=== PATIENT | male | born 1960 | race Caucasian/White ===

== ENCOUNTER → 2021-05-18 | Outpatient (CLI) | payer MEDICARE ==
--- NOTE | 2021-05-18 21:46 | CT ---
EXAMINATION TYPE: CT abdomen pelvis wo con DATE OF EXAM: 05/18/2021 HISTORY: diverticulitis, abdominal pain. CT DLP: 952.3 mGycm. Automated Exposure Control for Dose Reduction was Utilized. TECHNIQUE: CT scan of the abdomen and pelvis is performed with oral but without IV contrast. COMPARISON: CT abdomen and pelvis April 27, 2013 FINDINGS: Within the limitations of a non-contrast study, the following observations are made. LUNG BASES: Cardiomegaly with elevated left hemidiaphragm is redemonstrated. Overlying sternal wires are partially imaged similar to prior. There is persistent tiny pleural effusion and/or pleural thick ening with posterior calcifications and associated [id number] right greater than left bibasilar linear scarring and/or atelectasis.. LIVER/GB: No significant abnormality is appreciated. PANCREAS: Mild to moderate generalized fat replaced atrophy now present. SPLEEN: No significant abnormality is seen. ADRENALS: 2 small masses left adrenal gland and larger mass right adrenal gland are unchanged in size suggesting benign etiology. KIDNEYS: Some cortical thinning bilaterally. No hydronephrosis seen bilaterally. BOWEL: Oral contrast reaches the cecum. Suboptimal evaluation of distal bowel without enteric contra st. No suspicious small or large bowel dilatation. Diverticula in the sigmoid and left colon. No susp icious small or large bowel dilatation. GENITAL ORGANS: No gross abnormality seen. LYMPH NODES: No greater than 1cm abdominal or pelvic lymph nodes are appreciated. OSSEOUS STRUCTURES: Moderate to severe disc space narrowing with vacuum disc phenomenon at lumbosacra l junction. OTHER: Enlarging infrarenal AAA up to 6.4 cm axial image 51, length of the aneurysm is approximately 9.0 cm no extension into common iliac arteries is noted. There is however new aneurysm in the distal common iliac arteries measuring up to 4.0 cm right before bifurcation on the right. Scar tissue in the right and left anterior abdominal wall near level of umbilicus axial image 61 is n ow present. IMPRESSION: 1. Distal colonic diverticulosis without CT evidence for acute diverticulitis. 2. Enlarging infrarenal AAA up to 6.4 cm currently. Additional focal aneurysm distal right common li ac artery up to 4.0 cm. Advise surgical and/or endovascular referral.
[2021-05-19 06:41] LABS: Protein, Total 7.5 g/dL (6.2-8.2)
[2021-05-19 16:37] LABS: Albumin 4.4 g/dL (3.80-4.90); Gamma Globulin 1.01 g/dL (0.70-1.50)
== END | disposition home or self-care (01) ==
LOC: RADCTMAIN 16:59
PROVIDERS: ATTEND Internal Medicine
DX: K57.30 Diverticulosis of large intestine without perforation or abscess without bleeding (principal); I71.4 Abdominal aortic aneurysm, without rupture; I72.3 Aneurysm of iliac artery
CPT/HCPCS: 36415; 74176; 82565; 84165; 84520

== ENCOUNTER 2021-06-01 15:33 | Inpatient (IN) | payer MEDICARE ==
[2021-06-01] MEDS ORDERED: MAGNESIUM SULFATE-D5W PMX 1 GM in DEXTROSE/WATER 1 100ML.BAG IVPB ONE ×2 (16:03→22:39)
[2021-06-01] MEDS ORDERED: IPRATROPIUM-ALBUTEROL 3 ML NEB INHALATION STA (16:03)
[2021-06-01] MEDS ORDERED: methylPREDNISolone SOD SUCCI 125 MG/2 ML VIAL IV STA (16:03)
--- NOTE | 2021-06-01 16:14 | ED ---
Chest Pain HPI - General Chief Complaint: Chest Pain Stated Complaint: chest pain Source: patient Mode of arrival: ambulatory Limitations: no limitations - History of Present Illness Initial Comments: 60-year-old male with past medical history of coronary bypass 2, coronary stents, COPD, diabetes presents to the emergency room with reported shortness of breath. Patient's was chronically on oxygen up until one year ago. He states that he ran out of his canister and stopped using it one day. He was wearing 2 L of oxygen however he felt as if he did not need it any longer. States he's been doing well up until approximately one month ago. He has had progressive shortness of breath. Denies fevers, chills or cough. Does not use a nebulizer at home. He has been having some chest pain. States his last bypass was 12 years ago at [facility]. His by CT surgeon is now retired. He follows with a primary care doctor out of [place]. Reports that he used to be on a water pill however they took him off. He continues to smoke. No other alleviating, Percepting or modifying factors - Related Data Home Medications Medication Instructions Recorded Confirmed Allopurinol [Zyloprim] 300 mg PO DAILY 06/01/21 06/01/21 Aspirin EC [Ecotrin Low Dose] 81 mg PO DAILY 06/01/21 06/01/21 Clopidogrel [Plavix] 75 mg PO DAILY 06/01/21 06/01/21 Diltiazem HCl [Diltiazem HCl 24Hr 120 mg PO DAILY 06/01/21 06/01/21 ER (CD)] Escitalopram [Lexapro] 20 mg PO DAILY 06/01/21 06/01/21 HYDROcodone/APAP 7.5-325MG [[place] 1 tab PO QID PRN 06/01/21 06/01/21 7.5-325] Insulin Detemir (Levemir) [Levemir] 10 units SQ DAILY 06/01/21 06/01/21 Insulin Detemir (Levemir) [Levemir] 42 units SQ HS 06/01/21 06/01/21 Isosorbide Mononitrate ER [Imdur] 30 mg PO DAILY 06/01/21 06/01/21 Nitroglycerin Sl Tabs [Nitrostat] 0.4 mg SL Q5M PRN 06/01/21 06/01/21 Omeprazole 20 mg PO DAILY 06/01/21 06/01/21 Pioglitazone [Actos] 30 mg PO DAILY 06/01/21 06/01/21 Simvastatin [Zocor] 40 mg PO DAILY 06/01/21 06/01/21 Allergies Allergy/AdvReac Type Severity Reaction Status Date / Time No Known Allergies Allergy Verified 06/01/21 18:25 Review of Systems ROS Statement: Those systems with pertinent positive or pertinent negative responses have been documented in the HPI. ROS Other: All systems not noted in ROS Statement are negative. EKG Findings - EKG Comments: EKG Findings:: EKG demonstrates sinus bradycardia with a ventricular rate of 57. VA interval 180. QRS 118. QTC of 439. Incomplete left bundle-branch block. No acute ST segment elevations or depressions Past Medical History Past Medical History: COPD, Diabetes Mellitus, Hyperlipidemia, Myocardial Infarction ([place]) History of Any Multi-Drug Resistant Organisms: None Reported Past Surgical History: Appendectomy, Coronary Bypass/CABG, Heart Catheterization With Stent Past Psychological History: No Psychological Hx Reported Smoking Status: Current every day smoker Past Alcohol Use History: None Reported Past Drug Use History: None Reported - Past Family History Father Family Medical History: Hypertension General Exam Limitations: no limitations General appearance: alert, in distress Head exam: Present: atraumatic, normocephalic, normal inspection Eye exam: Present: normal appearance, PERRL, EOMI. Absent: scleral icterus, conjunctival injection, periorbital swelling ENT exam: Present: normal exam, mucous membranes moist Neck exam: Present: normal inspection. Absent: tenderness, meningismus, lymphadenopathy Respiratory exam: Present: respiratory distress, wheezes, accessory muscle use, decreased breath sounds. Absent: rales, rhonchi, stridor Cardiovascular Exam: Present: regular rate, normal rhythm, normal heart sounds. Absent: systolic murmur, diastolic murmur, rubs, gallop, clicks GI/Abdominal exam: Present: soft, normal bowel sounds. Absent: distended, tenderness, guarding, rebound, rigid Extremities exam: Present: normal inspection, full ROM, normal capillary refill. Absent: tenderness, pedal edema, joint swelling, calf tenderness Back exam: Present: normal inspection Neurological exam: Present: alert, oriented X3, CN II-XII intact Psychiatric exam: Present: normal affect, normal mood Skin exam: Present: warm, dry, intact, normal color. Absent: rash Course Vital Signs 06/01/21 06/01/21 06/01/21 15:36 17:53 18:07 Temperature 98.3 F Pulse Rate 68 51 L 50 L Respiratory 18 16 Rate Blood Pressure 187/105 162/92 O2 Sat by Pulse 72 L 96 Oximetry 06/01/21 06/01/21 06/01/21 18:13 19:00 21:02 Temperature Pulse Rate 52 L 47 L Respiratory 18 16 Rate Blood Pressure 154/91 O2 Sat by Pulse 95 Oximetry 06/01/21 06/01/21 06/02/21 22:03 22:15 01:54 Temperature Pulse Rate 51 L 48 L 60 Respiratory 16 Rate Blood Pressure 123/96 O2 Sat by Pulse 93 L 92 L Oximetry 06/02/21 06/02/21 06/02/21 03:54 04:05 05:30 Temperature Pulse Rate 56 L 61 62 Respiratory 18 Rate Blood Pressure 140/93 O2 Sat by Pulse 95 Oximetry 06/02/21 06/02/21 06/02/21 09:49 11:14 11:22 Temperature 97.7 F Pulse Rate 62 60 62 Respiratory 18 Rate Blood Pressure 129/69 O2 Sat by Pulse 95 Oximetry 06/02/21 06/02/21 06/02/21 12:53 15:31 15:39 Temperature Pulse Rate 80 60 64 Respiratory 18 Rate Blood Pressure O2 Sat by Pulse 97 Oximetry 06/02/21 15:58 Temperature Pulse Rate Respiratory 18 Rate Blood Pressure O2 Sat by Pulse Oximetry Chest Pain MDM - MDM Upon arrival patient is placed into trauma bay 3. Thorough history and physical exam was performed. Patient placed on 5 L of oxygen. IV is established. Laboratory studies are conducted. Creatinine 2.3. BNP 1040. Chest x-ray demonstrates chronic changes and cardiac megaly without acute cardiopulmonary process. I did review the patient's med list. He is not currently on a diuretic. Spoke with Dr. Lamont Roach who did recommend diuresis. I did order 60 mg once. Patient was given a DuoNeb breathing treatments, 1 g of magnesium and 125 mg of Solu-Medrol. Recommended admission due to the patient's profound hypoxia for which he did agree to. Spoke with Dr. Pedraza who agreed to admit the patient. We'll place cardiology and pulmonology on consult. Patient currently awaiting a bed on the floor in stable condition Disposition Clinical Impression: Chest pain, COPD exacerbation, Hypoxia Disposition: ADMITTED IP TO THIS HOSP Condition: Stable Is patient prescribed a controlled substance at d/c from ED?: No Decision to Admit Reason: Admit from EC Decision Date: 06/01/21 Decision Time: 18:19
[2021-06-01 16:18] LABS: Basophils # (A) 0.1 k/uL (0-0.2); Basophils % (A) 1 %; Eosinophils # (A) 0.1 k/uL (0-0.7); Eosinophils % (A) 2 %; HCT 42.5 % (39.0-53.0); HGB 14.1 gm/dL (13.0-17.5); Lymphocytes # (A) 1.2 k/uL (1.0-4.8); Lymphocytes % (A) 19 %; MCH 31.1 pg (25.0-35.0); MCHC 33.2 g/dL (31.0-37.0); MCV 93.6 fL (80.0-100.0); Monocytes # (A) 0.5 k/uL (0-1.0); Monocytes % (A) 7 %; Neutrophils # (A) 4.5 k/uL (1.3-7.7); Neutrophils % (A) 69 %; Platelet Count 160 k/uL (150-450); RBC 4.54 m/uL (4.30-5.90); RDW 13.8 % (11.5-15.5); WBC 6.5 k/uL (3.8-10.6)
[2021-06-01 16:25] LABS: Partial Thromboplastin Time 22.9 sec (22.0-30.0); Prothrombin Time 10.4 sec (9.0-12.0)
[2021-06-01 16:30] LABS: Albumin 4.3 g/dL (3.5-5.0); Calcium 8.9 mg/dL (8.4-10.2); Magnesium 1.5 mg/dL (1.6-2.3); Potassium 3.5 mmol/L (3.5-5.1); Total Bilirubin 0.7 mg/dL (0.2-1.3); Total Protein 7.3 g/dL (6.3-8.2)
--- NOTE | 2021-06-01 17:05 | XR ---
EXAMINATION TYPE: XR chest 2V DATE OF EXAM: 06/01/2021 COMPARISON: Chest CT October 26, 2013 HISTORY: Shortness of breath and chest pain. TECHNIQUE: Frontal and lateral views of the chest are obtained. FINDINGS: There is chronic parenchymal change and elevated left hemidiaphragm redemonstrated. Rafael Gonzalez ing sternal wires and cardiomegaly redemonstrated. Osseous structures are intact. IMPRESSION: Chronic changes and cardiomegaly without acute pulmonary process.
[2021-06-01] MEDS ORDERED: FUROSEMIDE 10 MG/ML 10 ML VIAL IV STA (18:15)
[2021-06-01] MEDS ORDERED: NALOXONE 0.4 MG/ML 1 ML VIAL IV PRN (18:19)
[2021-06-01] MEDS: IPRATROPIUM-ALBUTEROL 3 ML NEB INHALATION SCH (22:03)
[2021-06-01] MEDS ORDERED: HYDROcodone/APAP 7.5-325MG 1 EACH TAB PO PRN (22:18)
[2021-06-01] MEDS ORDERED: ATORVASTATIN 20 MG TAB PO SCH (22:30)
--- NOTE | 2021-06-01 22:32 | P.HPIM ---
History of Present Illness H&P Date: 06/01/21 The patient is a 60-year-old with a PMH of coronary artery disease status post CABG 2 and multiple stents, COPD with chronic hypoxic respiratory failure on continuous home oxygen, chronic kidney disease, type II DM, hypertension, and hyper lipidemia presented to the emergency room with complaints of shortness of breath. The patient reports that he has been on long-term oxygen therapy but ran out nearly a year ago and did not get mother canister and thereby has not been using his oxygen. He was using 2 L via nasal cannula but felt no different and thereby does not use it. He reports that over the past few weeks, he has gradually worsening shortness of breath. He notes that earlier today at around 11 AM, he felt tired and sat down at the edge of the bed where he fell asleep and subsequently fell off the bed, though he did not report any injuries. He then walked out to the kitchen where he lost consciousness and from the fridge, hitting the ground. The patient's [id number] was close by who witnessed the fall. She reports the patient was on the ground snoring. No shaking mo vements, urinary incontinence, foaming at the mouth as reported. The patient regained consciousness in 1-2 minutes with no post ictal confusion. The patient subsequently contacted his son who brought him to the emergency room. The patient denied experiencing chest discomfort, and palpitations headache, weakness, numbness, tingling. Also denied diaphoresis, nausea, vomiting, abdominal pain. Upon arrival in the ED, the patient's SpO2 is 72% on room air. EKG in the emergency room revealed sinus bradycardia with an incomplete left bundle branch block at 57 bpm with poor R-wave progression. Chest x-ray was unremarkable. Laboratory evaluation was remarkable for BUN of 34, creatinine 2.3, magnesium 1.5, troponin 0.039, and proBNP 1040. Review of systems: Pertinent positives and negatives as discussed in HPI, a complete review of systems was performed and all other systems are negative. Physical examination: General: non toxic, no distress, appears older than stated age, obese Derm: no unusual rashes/lesions no unusual ecchymoses, warm, dry Head: atraumatic, normocephalic, symmetric Eyes: EOMI, no lid lag, anicteric sclera, pupils equal round reactive to light ENT: Nose and ears atraumatic, no thrush, no pharyngeal erythema Neck: No thyromegaly, no cervical lymphadenopathy, trachea midline, supple Mouth: no lip lesion, mucus membranes moist Cardiovascular: S1S2 reg, no murmur, positive posterior tibial pulse bilateral, no edema, capillary refill less than 2 seconds Lungs: Diffuse bilateral wheezing, no rales or rhonchi appreciated, no accessory muscle use Abdominal: soft, nontender to palpation, no guarding, no appreciable organomegaly, normal bowel sounds Ext: no gross muscle atrophy, muscle strength 5 out of 5 in all 4 extremities grossly, no contractures, Neuro: CN II-XI grossly intact, light touch intact all 4 extremities, finger to nose within normal limits, Psych: Alert, oriented, appropriate affect Assessment/plan Elevated troponin, likely type II CT with demand ischemia due to severe hypoxia -Trend for now -Cardiology consulted -Cardiac monitoring Syncope, may be due to severe hypoxia -Cardiac monitoring -Echocardiogram -Continue supplemental oxygen -Fall, seizure precautions Acute COPD exacerbation with chronic hypoxic respiratory failure -Solu-Medrol -DuoNeb's -Pulmonary consult -Supplemental oxygen Chronic conditions: Type II DM, hypertension, hyperlipidemia, chronic kidney disease -Continue home meds DVT prophylaxis -Heparin subcu The patient is admitted with an anticipated greater than 2 midnight stay for evaluation of syncope CODE STATUS:Full Code Discussed with: Patient, son Anticipated discharge date: 2-[address]: Home Past Medical History Past Medical History: COPD, Diabetes Mellitus, Hyperlipidemia, Myocardial Infarction ([place]) History of Any Multi-Drug Resistant Organisms: None Reported Past Surgical History: Appendectomy, Coronary Bypass/CABG, Heart Catheterization With Stent Past Psychological History: No Psychological Hx Reported Smoking Status: Current every day smoker Past Alcohol Use History: None Reported Past Drug Use History: None Reported - Past Family History Father Family Medical History: Hypertension Medications and Allergies Home Medications Medication Instructions Recorded Confirmed Type Allopurinol [Zyloprim] 300 mg PO DAILY 06/01/21 06/01/21 History Aspirin EC [Ecotrin Low Dose] 81 mg PO DAILY 06/01/21 06/01/21 History Clopidogrel [Plavix] 75 mg PO DAILY 06/01/21 06/01/21 History Diltiazem HCl [Diltiazem HCl 24Hr 120 mg PO DAILY 06/01/21 06/01/21 History ER (CD)] Escitalopram [Lexapro] 20 mg PO DAILY 06/01/21 06/01/21 History HYDROcodone/APAP 7.5-325MG [[place] 1 tab PO QID PRN 06/01/21 06/01/21 History 7.5-325] Insulin Detemir (Levemir) [Levemir] 10 units SQ DAILY 06/01/21 06/01/21 History Insulin Detemir (Levemir) [Levemir] 42 units SQ HS 06/01/21 06/01/21 History Isosorbide Mononitrate ER [Imdur] 30 mg PO DAILY 06/01/21 06/01/21 History Nitroglycerin Sl Tabs [Nitrostat] 0.4 mg SL Q5M PRN 06/01/21 06/01/21 History Omeprazole 20 mg PO DAILY 06/01/21 06/01/21 History Pioglitazone [Actos] 30 mg PO DAILY 06/01/21 06/01/21 History Simvastatin [Zocor] 40 mg PO DAILY 06/01/21 06/01/21 History Allergies Allergy/AdvReac Type Severity Reaction Status Date / Time No Known Allergies Allergy Verified 06/01/21 18:25 Physical Exam Vitals: Vital Signs Temp Pulse Resp BP Pulse Ox 06/01/21 22:15 48 L 06/01/21 22:03 51 L 93 L 06/01/21 21:02 47 L 16 154/91 95 06/01/21 18:13 52 L 06/01/21 18:07 50 L 06/01/21 17:53 51 L 16 162/92 96 06/01/21 15:36 98.3 F 68 18 187/105 72 L Intake and Output 06/01/21 06/01/21 06/01/21 06:59 14:59 22:59 Other: Weight 107.955 kg Results CBC & Chem 7: 06/01/21 16:08 06/01/21 16:08 Labs: Abnormal Lab Results - Last 24 Hours (Table) 06/01/21 06/01/21 Range/Units 16:08 16:08 Sodium 134 L (137-145) mmol/L BUN 34 H (9-20) mg/dL Creatinine 2.30 H (0.66-1.25) mg/dL Glucose 144 H (74-99) mg/dL Magnesium 1.5 L (1.6-2.3) mg/dL Troponin I 0.039 H* (0.000-0.034) ng/mL
[2021-06-01] MEDS ORDERED: IPRATROPIUM-ALBUTEROL 3 ML NEB INHALATION PRN (22:38)
[2021-06-02 01:46] LABS: Glucose,Whole Blood 171 mg/dL (75-99)
[2021-06-02] MEDS: INSULIN DETEMIR (LEVEMIR) 100 UNIT/ML SYR SQ SCH ×3 (01:46→22:13)
[2021-06-02] MEDS: PANTOPRAZOLE 40 MG TABLET PO SCH ×2 (01:50→09:55)
[2021-06-02] MEDS: methylPREDNISolone SOD SUCCI 40 MG/ML 1 ML VIAL IV SCH ×4 (01:51→22:12)
[2021-06-02] MEDS: IPRATROPIUM-ALBUTEROL 3 ML NEB INHALATION SCH ×6 (03:53→21:09)
[2021-06-02 07:50] LABS: Basophils % (A) 0 %; Eosinophils % (A) 0 %; HCT 44.5 % (39.0-53.0); HGB 14.7 gm/dL (13.0-17.5); Lymphocytes # (A) 0.8 k/uL (1.0-4.8); Lymphocytes % (A) 12 %; MCH 31.2 pg (25.0-35.0); MCV 94.6 fL (80.0-100.0); Mean Platelet Volume 9.3; Monocytes # (A) 0.1 k/uL (0-1.0); Monocytes % (A) 1 %; Neutrophils # (A) 5.9 k/uL (1.3-7.7); Neutrophils % (A) 86 %; Platelet Count 168 k/uL (150-450); RDW 13.6 % (11.5-15.5); WBC 6.8 k/uL (3.8-10.6)
[2021-06-02 08:05] LABS: Calcium 9.2 mg/dL (8.4-10.2); Magnesium 1.9 mg/dL (1.6-2.3)
[2021-06-02] MEDS ORDERED: DILTIAZEM CD 120 MG CAP.ER.24H PO SCH (09:00)
[2021-06-02] MEDS ORDERED: PIOGLITAZONE 30 MG TAB PO SCH (09:00)
[2021-06-02] MEDS: CLOPIDOGREL 75 MG TAB PO SCH (09:55)
[2021-06-02] MEDS: ASPIRIN 81 MG PO SCH (09:55)
[2021-06-02] MEDS: ISOSORBIDE MONONITRATE ER 30 MG TAB.ER.24H PO SCH (09:55)
[2021-06-02] MEDS: allopurinoL 300 MG TAB PO SCH (10:57)
[2021-06-02] MEDS: ESCITALOPRAM 20 MG TAB PO SCH (10:57)
[2021-06-02] MEDS: carvediloL 6.25 MG TAB PO SCH ×2 (10:57→17:13)
--- NOTE | 2021-06-02 11:24 | P.GSCN ---
History of Present Illness Consult date: 06/02/21 Reason for Consult: Abdominal aortic aneurysm Requesting physician: Nancy Levy History of present illness: The [place] 60-year-old white male with a past medical history of multiple comorbidities including COPD, coronary artery disease status post CABG 2, stenting, diabetes mellitus, hyperlipidemia, and current every day smoker 1-2 packs per day. Patient has a history of smoking for the past 40-50 years. States he had 2 bypass surgeries done at [facility] in [place], first one done in his 30s. He also states he's had cardiac catheterization with stents. The patient presented to the emergency department yesterday evening with complaints of shortness of breath and dyspnea with exertion. He has a history of COPD which he was oxygen dependent however had not been using his oxygen at home as his machine did not work. On arrival to the emergency department the patient's oxygen level was 72% on room air. Patient had serial elevated troponins 3. Patient is admitted for COPD exacerbation with cardiology and pulmonology on consult. He follows with his primary care provider Dr. Tk Plaza out of [place]. He states he recently saw him in April for abdominal pain and he underwent a CT of the abdomen and pelvis that showed distal colonic diverticulosis without CT evidence of acute diverticulitis and enlarging infrarenal abdominal aortic aneurysm up to 6.4 cm currently. Additional focal aneurysm distal right common iliac artery up to 4.0 cm. Advise surgical and/or endovascular referral therefore vascular surgery was consulted. Patient currently denies any abdominal pain, nausea, vomiting, shortness of breath, chest pain, fevers or chills. Review of Systems A 14 point review of systems was completed all pertinent positives and negatives as stated in the HPI. Past Medical History Past Medical History: COPD, Diabetes Mellitus, Hyperlipidemia, Myocardial Infarction ([place]) History of Any Multi-Drug Resistant Organisms: None Reported Past Surgical History: Appendectomy, Coronary Bypass/CABG, Heart Catheterization With Stent Past Psychological History: No Psychological Hx Reported Smoking Status: Current every day smoker Past Alcohol Use History: None Reported Past Drug Use History: None Reported - Past Family History Father Family Medical History: Hypertension Medications and Allergies Home Medications Medication Instructions Recorded Confirmed Type Allopurinol [Zyloprim] 300 mg PO DAILY 06/01/21 06/01/21 History Aspirin EC [Ecotrin Low Dose] 81 mg PO DAILY 06/01/21 06/01/21 History Clopidogrel [Plavix] 75 mg PO DAILY 06/01/21 06/01/21 History Diltiazem HCl [Diltiazem HCl 24Hr 120 mg PO DAILY 06/01/21 06/01/21 History ER (CD)] Escitalopram [Lexapro] 20 mg PO DAILY 06/01/21 06/01/21 History HYDROcodone/APAP 7.5-325MG [[place] 1 tab PO QID PRN 06/01/21 06/01/21 History 7.5-325] Insulin Detemir (Levemir) [Levemir] 10 units SQ DAILY 06/01/21 06/01/21 History Insulin Detemir (Levemir) [Levemir] 42 units SQ HS 06/01/21 06/01/21 History Isosorbide Mononitrate ER [Imdur] 30 mg PO DAILY 06/01/21 06/01/21 History Nitroglycerin Sl Tabs [Nitrostat] 0.4 mg SL Q5M PRN 06/01/21 06/01/21 History Omeprazole 20 mg PO DAILY 06/01/21 06/01/21 History Pioglitazone [Actos] 30 mg PO DAILY 06/01/21 06/01/21 History Simvastatin [Zocor] 40 mg PO DAILY 06/01/21 06/01/21 History Allergies Allergy/AdvReac Type Severity Reaction Status Date / Time No Known Allergies Allergy Verified 06/01/21 18:25 Surgical - Exam Vital Signs Temp Pulse Resp BP Pulse Ox 98.3 F 68 18 187/105 72 L 06/01/21 15:36 06/01/21 15:36 06/01/21 15:36 06/01/21 15:36 06/01/21 15:36 General appearance: The patient is alert, oriented, appears in no acute distress. Obese. HET: Head is normocephalic and atraumatic. . Neck: Supple without lymphadenopathy. Trachea midline. Heart: S1 S2. Regular rate and rhythm. Lungs: Diminished with bilateral wheezing. Abdomen: Soft, nontender, nondistended with bowel sounds. Extremities: Normal skin color and turgor. No cyanosis, rash, ulceration, clubbing, or edema. Radial and pedal pulses are 2/4 bilaterally. Neurological: No focal deficits. Strength and sensation are grossly intact. Results - Labs 06/02/21 07:04 06/02/21 07:04 Abnormal Lab Results - Last 24 Hours (Table) 06/01/21 06/01/21 06/01/21 Range/Units 16:08 16:08 21:26 Lymphocytes # (1.0-4.8) k/uL Sodium 134 L (137-145) mmol/L Potassium (3.5-5.1) mmol/L Chloride (98-107) mmol/L BUN 34 H (9-20) mg/dL Creatinine 2.30 H (0.66-1.25) mg/dL Glucose 144 H (74-99) mg/dL POC Glucose (mg/dL) (75-99) mg/dL Magnesium 1.5 L (1.6-2.3) mg/dL Troponin I 0.039 H* 0.047 H* (0.000-0.034) ng/mL 06/02/21 06/02/21 06/02/21 Range/Units 00:19 01:44 07:04 Lymphocytes # 0.8 L (1.0-4.8) k/uL Sodium (137-145) mmol/L Potassium (3.5-5.1) mmol/L Chloride (98-107) mmol/L BUN (9-20) mg/dL Creatinine (0.66-1.25) mg/dL Glucose (74-99) mg/dL POC Glucose (mg/dL) 171 H (75-99) mg/dL Magnesium (1.6-2.3) mg/dL Troponin I 0.039 H* (0.000-0.034) ng/mL 06/02/21 Range/Units 07:04 Lymphocytes # (1.0-4.8) k/uL Sodium (137-145) mmol/L Potassium 3.0 L (3.5-5.1) mmol/L Chloride 97 L (98-107) mmol/L BUN 37 H (9-20) mg/dL Creatinine 2.30 H (0.66-1.25) mg/dL Glucose 184 H (74-99) mg/dL POC Glucose (mg/dL) (75-99) mg/dL Magnesium (1.6-2.3) mg/dL Troponin I (0.000-0.034) ng/mL Diabetes panel 06/01/21 06/02/21 Range/Units 16:08 07:04 Sodium 134 L 138 (137-145) mmol/L Potassium 3.5 3.0 L (3.5-5.1) mmol/L Chloride 99 97 L (98-107) mmol/L Carbon Dioxide 23 30 (22-30) mmol/L BUN 34 H 37 H (9-20) mg/dL Creatinine 2.30 H 2.30 H (0.66-1.25) mg/dL Glucose 144 H 184 H (74-99) mg/dL Calcium 8.9 9.2 (8.4-10.2) mg/dL AST 32 (17-59) U/L ALT 13 (4-49) U/L Alkaline Phosphatase 109 (38-126) U/L Total Protein 7.3 (6.3-8.2) g/dL Albumin 4.3 (3.5-5.0) g/dL Calcium panel 06/01/21 06/02/21 Range/Units 16:08 07:04 Calcium 8.9 9.2 (8.4-10.2) mg/dL Albumin 4.3 (3.5-5.0) g/dL Pituitary panel 06/01/21 06/02/21 Range/Units 16:08 07:04 Sodium 134 L 138 (137-145) mmol/L Potassium 3.5 3.0 L (3.5-5.1) mmol/L Chloride 99 97 L (98-107) mmol/L Carbon Dioxide 23 30 (22-30) mmol/L BUN 34 H 37 H (9-20) mg/dL Creatinine 2.30 H 2.30 H (0.66-1.25) mg/dL Glucose 144 H 184 H (74-99) mg/dL Calcium 8.9 9.2 (8.4-10.2) mg/dL Adrenal panel 06/01/21 06/02/21 Range/Units 16:08 07:04 Sodium 134 L 138 (137-145) mmol/L Potassium 3.5 3.0 L (3.5-5.1) mmol/L Chloride 99 97 L (98-107) mmol/L Carbon Dioxide 23 30 (22-30) mmol/L BUN 34 H 37 H (9-20) mg/dL Creatinine 2.30 H 2.30 H (0.66-1.25) mg/dL Glucose 144 H 184 H (74-99) mg/dL Calcium 8.9 9.2 (8.4-10.2) mg/dL Total Bilirubin 0.7 (0.2-1.3) mg/dL AST 32 (17-59) U/L ALT 13 (4-49) U/L Alkaline Phosphatase 109 (38-126) U/L Total Protein 7.3 (6.3-8.2) g/dL Albumin 4.3 (3.5-5.0) g/dL - Imaging Comments: CT of the abdomen and pelvis that showed distal colonic diverticulosis without CT evidence of acute diverticulitis and enlarging infrarenal abdominal aortic aneurysm up to 6.4 cm currently. Additional focal aneurysm distal right common iliac artery up to 4.0 cm. Advise surgical and/or endovascular referral Assessment and Plan Assessment: 1. Infrarenal Abdominal aortic aneurysm measuring 6.4 cm 2. Chronic COPD with exacerbation 3. History of coronary artery disease, status post CABG, cardiac stents 4. Elevated troponins 5. Diabetes mellitus, hypertension, hyperlipidemia, chronic kidney disease Plan: 1. Continue symptomatic and supportive care 2. Advised smoking cessation 3. Keep blood pressure controlled 4. Continue medical management per primary medicine team 5. Will need cardiac clearance prior to any vascular surgical procedure 6. Recommend CTA abdomen and pelvis once kidney function improves this may be done outpatient 7. Will need outpatient follow-up, further discussion of intervention and timing Thank you for this consultation, and allowing us take part in the plan of care of your patient during his hospital stay The impression and plan of care has been dictated as directed. I performed a history and examination of this patient, discussed the same with the dictator. I agree with the dictator's note ,documented as a scribe. Any additional findings or plans will be noted.
--- NOTE | 2021-06-02 12:48 | ECHOF ---
Referral Reason:Syncope MEASUREMENTS -------- HEIGHT: 182.9 cm WEIGHT: 108.0 kg BP: RVIDd: 3.5 cm (< 3.3) IVSd: 1.2 cm (0.6 - 1.1) LVIDd: 5.9 cm (3.9 - 5.3) LVPWd: 1.6 cm (0.6 - 1.1) IVSs: 1.5 cm LVIDs: 4.1 cm LVPWs: 1.8 cm LA Diam: 5.1 cm (2.7 - 3.8) LAESV Index (A-L): 32.57 ml/m Ao Diam: 3.6 cm (2.0 - 3.7) AV Cusp: 1.9 cm (1.5 - 2.6) MV EXCURSION: 18.134 mm (> 18.000) MV EF SLOPE: 61 mm/s (70 - 150) EPSS: 0.6 cm MV E Candido: 0.32 m/s MV DecT: 247 ms MV A Candido: 1.09 m/s MV E/A Ratio: 0.30 RAP: 3.00 mmHg RVSP: 14.29 mmHg FINDINGS -------- Sinus rhythm. This was a technically good study. LV size, wall thickness and systolic function are normal, with an EF greater than 55%. The left ramon tricular size is normal. The right ventricle is normal in size. LA is midly dilated 29-33ml/m2. The right atrial size is normal. There is mild aortic valve sclerosis. There is no evidence of aortic regurgitation. Mild mitral regurgitation is present. Mild tricuspid regurgitation present. Right ventricular systolic pressure is normal at < 35 mmHg. There is no pulmonic regurgitation present. There is no pericardial effusion. CONCLUSIONS -------- 1. LV size, wall thickness and systolic function are normal, with an EF greater than 55%. 2. The left ventricular size is normal. 3. The right ventricle is normal in size. 4. LA is midly dilated 29-33ml/m2. 5. The right atrial size is normal. 6. There is mild aortic valve sclerosis. 7. Mild mitral regurgitation is present. 8. Mild tricuspid regurgitation present. 9. There is no pericardial effusion. C4 PLANNER: Destiney Mckeon RDCS
--- NOTE | 2021-06-02 13:20 | P.CRDCN ---
History of Present Illness Consult date: 06/02/21 History of present illness: HISTORY OF PRESENT ILLNESS: This is a 60-year-old male with a past medical history significant for COPD, coronary artery disease with previous CABG performed at [facility], hypertension, hyperlipidemia, and nicotine dependence. 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 We have been asked to see the patient in consultation for chest pain. Patient examined at the bedside. Patient states he came to the [facility] secondary to SOB. He also reports intermittent chest pain over the past 2 weeks. He states the pain is usually in the middle of his chest. He denies any radiation of the pain. Patient is a current smoker and smokes 1 pack per day. EKG reveals sinus mechanism with ST depression in lateral leads. There is no previous EKG for comparison. Chest xray chronic changes and cardiomegaly without acute pulmonary process Laboratory data: WBC 6.8. Hemoglobin 14.7. Platelet count 168. Sodium 138. Potassium 3.0. B UN 37. Creatinine 2.30. Troponin 0.039. 0.047. 0.039. Current home cardiac medications include simvastatin 40 mg daily, Imdur 30 mg daily, diltiazem 120 mg daily, Plavix 75 mg daily, aspirin [address] abdomen and pelvis enlarging infrarenal AAA up to 6.4 cm currently. 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 Advise surgical and/or endovascular referral. REVIEW OF SYSTEMS: At the time of my exam: CONSTITUTIONAL: Denies fever or chills. HEENT: Denies blurred vision, vision changes, or eye pain. Denies hemoptysis CARDIOVASCULAR: Denies chest pain. Denies orthopnea. Denies PND. Denies palpitations RESPIRATORY: Reports shortness of breath. GASTROINTESTINAL: Denies abdominal pain. Denies nausea or vomiting. HEMATOLOGIC: Denies bleeding disorders. GENITOURINARY: Denies any blood in urine. SKIN: Denies pruitis. Denies rash. PHYSICAL EXAM: VITAL SIGNS: Reviewed. GENERAL: Well-developed in no acute distress. HEENT: Head is normocephalic. Pupils are equal, round. Sclerae anicteric. Mucous membranes of the mouth are moist. Neck supple. No JVD or thyromegaly LUNGS: Respirations even and unlabored. Lungs with scattered rhonchi and expiratory wheezing throughout. HEART: Regular rate and rhythm. S1 and S2 heard. ABDOMEN: Soft. Nondistended. Nontender. EXTREMITIES: Normal range of motion. No clubbing or cyanosis. Peripheral pulses intact. No lower extremity edema NEUROLOGIC: Awake and alert. Oriented x 3. ASSESSMENT: Acute exacerbation of COPD Abnormal troponin, not suggestive of acute coronary syndrome Infrarenal abdominal aortic aneurysm measuring 6.4 cm History of coronary artery disease with previous CABG Hypertension Hyperlipidemia Diabetes Nicotine dependence PLAN: Obtain 2D echo to assess cardiac structure and function Discontinue Diltiazem Begin Coreg 6.25 mg twice a day Continue additional cardiac medications Consult vascular surgery for evaluation of AAA Further recommendations pending patient course Nurse practitioner note has been reviewed by physician. Signing provider agrees with the documented findings, assessment, and plan of care. Past Medical History Past Medical History: COPD, Diabetes Mellitus, Hyperlipidemia, Myocardial Infarction ([place]) History of Any Multi-Drug Resistant Organisms: None Reported Past Surgical History: Appendectomy, Coronary Bypass/CABG, Heart Catheterization With Stent Past Psychological History: No Psychological Hx Reported Smoking Status: Current every day smoker Past Alcohol Use History: None Reported Past Drug Use History: None Reported - Past Family History Father Family Medical History: Hypertension Medications and Allergies Home Medications Medication Instructions Recorded Confirmed Type Allopurinol [Zyloprim] 300 mg PO DAILY 06/01/21 06/01/21 History Aspirin EC [Ecotrin Low Dose] 81 mg PO DAILY 06/01/21 06/01/21 History Clopidogrel [Plavix] 75 mg PO DAILY 06/01/21 06/01/21 History Diltiazem HCl [Diltiazem HCl 24Hr 120 mg PO DAILY 06/01/21 06/01/21 History ER (CD)] Escitalopram [Lexapro] 20 mg PO DAILY 06/01/21 06/01/21 History HYDROcodone/APAP 7.5-325MG [[place] 1 tab PO QID PRN 06/01/21 06/01/21 History 7.5-325] Insulin Detemir (Levemir) [Levemir] 10 units SQ DAILY 06/01/21 06/01/21 History Insulin Detemir (Levemir) [Levemir] 42 units SQ HS 06/01/21 06/01/21 History Isosorbide Mononitrate ER [Imdur] 30 mg PO DAILY 06/01/21 06/01/21 History Nitroglycerin Sl Tabs [Nitrostat] 0.4 mg SL Q5M PRN 06/01/21 06/01/21 History Omeprazole 20 mg PO DAILY 06/01/21 06/01/21 History Pioglitazone [Actos] 30 mg PO DAILY 06/01/21 06/01/21 History Simvastatin [Zocor] 40 mg PO DAILY 06/01/21 06/01/21 History Allergies Allergy/AdvReac Type Severity Reaction Status Date / Time No Known Allergies Allergy Verified 06/01/21 18:25 Physical Exam Vitals: Vital Signs Temp Pulse Resp BP Pulse Ox 06/02/21 11:22 62 06/02/21 11:14 60 06/02/21 09:49 97.7 F 62 18 129/69 95 06/02/21 05:30 62 18 140/93 95 06/02/21 04:05 61 06/02/21 03:54 56 L 06/02/21 01:54 60 16 123/96 92 L 06/01/21 22:15 48 L 06/01/21 22:03 51 L 93 L 06/01/21 21:02 47 L 16 154/91 95 06/01/21 19:00 18 06/01/21 18:13 52 L 06/01/21 18:07 50 L 06/01/21 17:53 51 L 16 162/92 96 06/01/21 15:36 98.3 F 68 18 187/105 72 L Intake and Output 06/01/21 06/02/21 06/02/21 22:59 06:59 14:59 Other: Weight 107.955 kg Results 06/02/21 07:04 06/02/21 07:04 Cardiac Enzymes 06/01/21 06/01/21 06/01/21 Range/Units 16:08 16:08 21:26 AST 32 (17-59) U/L Troponin I 0.039 H* 0.047 H* (0.000-0.034) ng/mL 06/02/21 Range/Units 00:19 AST (17-59) U/L Troponin I 0.039 H* (0.000-0.034) ng/mL Coagulation 06/01/21 Range/Units 16:08 PT 10.4 (9.0-12.0) sec APTT 22.9 (22.0-30.0) sec CBC 06/01/21 06/02/21 Range/Units 16:08 07:04 WBC 6.5 6.8 (3.8-10.6) k/uL RBC 4.54 4.70 (4.30-5.90) m/uL Hgb 14.1 14.7 (13.0-17.5) gm/dL Hct 42.5 44.5 (39.0-53.0) % Plt Count 160 168 (150-450) k/uL Comprehensive Metabolic Panel 06/01/21 06/02/21 Range/Units 16:08 07:04 Sodium 134 L 138 (137-145) mmol/L Potassium 3.5 3.0 L (3.5-5.1) mmol/L Chloride 99 97 L (98-107) mmol/L Carbon Dioxide 23 30 (22-30) mmol/L BUN 34 H 37 H (9-20) mg/dL Creatinine 2.30 H 2.30 H (0.66-1.25) mg/dL Glucose 144 H 184 H (74-99) mg/dL Calcium 8.9 9.2 (8.4-10.2) mg/dL AST 32 (17-59) U/L ALT 13 (4-49) U/L Alkaline Phosphatase 109 (38-126) U/L Total Protein 7.3 (6.3-8.2) g/dL Albumin 4.3 (3.5-5.0) g/dL Current Medications Generic Name Dose Route Start Last Admin Trade Name Freq PRN Reason Stop Dose Admin Hydrocodone Bitart/Acetaminophen 1 each 06/01/21 22:18 Hydrocodone/Apap 7.5-325mg 1 Each Tab PO QID PRN Pain Albuterol/Ipratropium 3 ml 06/01/21 20:00 06/02/21 11:13 Ipratropium-Albuterol 3 Ml Neb INHALATION 3 ml RT-Q4H ADRIANA Administration Albuterol/Ipratropium 3 ml 06/01/21 22:38 Ipratropium-Albuterol 3 Ml Neb INHALATION RT-QID PRN Shortness Of Breath Or Wheezing Allopurinol 300 mg 06/02/21 09:00 06/02/21 10:57 Allopurinol 300 Mg Tab PO 300 mg DAILY ADRIANA Administration Aspirin 81 mg 06/02/21 09:00 06/02/21 09:55 Aspirin 81 Mg PO 81 mg DAILY ADRIANA Administration Atorvastatin Calcium 40 mg 06/02/21 21:00 Atorvastatin 40 Mg Tab PO HS ADRIANA Carvedilol 6.25 mg 06/02/21 09:15 06/02/21 10:57 Carvedilol 6.25 Mg Tab PO 6.25 mg BID-W/MEALS ADRIANA Administration Clopidogrel Bisulfate 75 mg 06/02/21 09:00 06/02/21 09:55 Clopidogrel 75 Mg Tab PO 75 mg DAILY ADRIANA Administration Escitalopram Oxalate 20 mg 06/02/21 09:00 06/02/21 10:57 Escitalopram 20 Mg Tab PO 20 mg DAILY ADRIANA Administration Insulin Detemir 10 unit 06/02/21 09:00 06/02/21 10:51 Insulin Detemir (Levemir) 100 Unit/Ml Syr SQ 10 unit DAILY ADRIANA Administration Insulin Detemir 42 unit 06/01/21 22:30 06/02/21 01:46 Insulin Detemir (Levemir) 100 Unit/Ml Syr SQ Not Given HS [facility] Isosorbide Mononitrate 30 mg 06/02/21 09:00 06/02/21 09:55 Isosorbide Mononitrate Er 30 Mg Tab.Er.24h PO 30 mg DAILY ADRIANA Administration Methylprednisolone Sodium Succinate 40 mg 06/02/21 00:00 06/02/21 09:55 Methylprednisolone Sod Succi 40 Mg/Ml 1 Ml Vial IV 40 mg Q8HR ADRIANA Administration Naloxone HCl 0.2 mg 06/01/21 18:19 Naloxone 0.4 Mg/Ml 1 Ml Vial IV Q2M PRN Opioid Reversal Pantoprazole Sodium 40 mg 06/01/21 22:30 06/02/21 09:55 Pantoprazole 40 Mg Tablet PO 40 mg [id number] Administration Intake and Output 06/01/21 06/02/21 06/02/21 22:59 06:59 14:59 Other: Weight 107.955 kg 06/02/21 07:04 06/02/21 07:04
--- NOTE | 2021-06-02 15:40 | P.PN ---
Subjective Progress Note Date: 06/02/21 Patient was seen and evaluated by me in the emergency room. He denies any shortness of breath or chest pain at the time of my evaluation. No acute events overnight. Objective - Vital Signs Vital signs: Vital Signs Temp 97.7 F 06/02/21 09:49 Pulse 60 06/02/21 15:31 Resp 18 06/02/21 12:53 BP 129/69 06/02/21 09:49 Pulse Ox 97 06/02/21 12:53 Intake & Output 06/01/21 06/02/21 06/02/21 18:59 06:59 18:59 Weight 107.955 kg - Exam General: The patient is awake and alert, in no distress Eye: there is normal conjunctiva bilaterally. Neck: The neck is supple, there is no JVD. Cardiovascular: Normal S1-S2, no S3-S4, no murmurs. Respiratory: Lungs clear to auscultation bilaterally Gastrointestinal: Abdomen is soft, nontender Musculoskeletal: There is no pedal edema. Neurological:. Speech is normal. Skin: Skin is warm and dry - Labs CBC & Chem 7: 06/02/21 07:04 06/02/21 07:04 Labs: Abnormal Lab Results - Last 24 Hours (Table) 06/01/21 06/01/21 06/01/21 Range/Units 16:08 16:08 21:26 Lymphocytes # (1.0-4.8) k/uL Sodium 134 L (137-145) mmol/L Potassium (3.5-5.1) mmol/L Chloride (98-107) mmol/L BUN 34 H (9-20) mg/dL Creatinine 2.30 H (0.66-1.25) mg/dL Glucose 144 H (74-99) mg/dL POC Glucose (mg/dL) (75-99) mg/dL Hemoglobin A1c (4.0-6.0) % Magnesium 1.5 L (1.6-2.3) mg/dL Troponin I 0.039 H* 0.047 H* (0.000-0.034) ng/mL 06/02/21 06/02/21 06/02/21 Range/Units 00:19 01:44 07:04 Lymphocytes # 0.8 L (1.0-4.8) k/uL Sodium (137-145) mmol/L Potassium (3.5-5.1) mmol/L Chloride (98-107) mmol/L BUN (9-20) mg/dL Creatinine (0.66-1.25) mg/dL Glucose (74-99) mg/dL POC Glucose (mg/dL) 171 H (75-99) mg/dL Hemoglobin A1c (4.0-6.0) % Magnesium (1.6-2.3) mg/dL Troponin I 0.039 H* (0.000-0.034) ng/mL 06/02/21 06/02/21 Range/Units 07:04 07:04 Lymphocytes # (1.0-4.8) k/uL Sodium (137-145) mmol/L Potassium 3.0 L (3.5-5.1) mmol/L Chloride 97 L (98-107) mmol/L BUN 37 H (9-20) mg/dL Creatinine 2.30 H (0.66-1.25) mg/dL Glucose 184 H (74-99) mg/dL POC Glucose (mg/dL) (75-99) mg/dL Hemoglobin A1c 6.5 H (4.0-6.0) % Magnesium (1.6-2.3) mg/dL Troponin I (0.000-0.034) ng/mL Assessment and Plan Assessment: This is a 60-year-old male with very complex past medical history noted below Presented to the emergency room with acute on chronic dyspnea and was found to be hypoxic. Patient is to have oxygen at home but ran out of it approximately a year ago did not see any doctors. He was evaluated in the ER and admitted to the hospital for further management of his medical problems noted below. 1. Acute on chronic hypoxic respiratory failure probably secondary to underly ing COPD. O2 sats greater than 90% on 2 L of oxygen via nasal cannula. 2. Troponin elevation, most likely non-thrombotic troponin leak secondary to demand/supply mismatch and hypoxia. Patient was seen and evaluated by cardiology. Echocardiogram showed preserved ejection fraction with no significa nt valvular or wall motion abnormalities. 3. Acute COPD exacerbation, started on bronchodilators and IV Solu-Medrol. Pulmonary consulted for further evaluation. 4. Infrarenal AAA measuring 6.4 cm noted on echo. Seen and evaluated by vascular surgery. Follow-up outpatient. Tobacco cessation encouraged. 5. Chronic medical problems, coronary artery disease with previous CABG, station IIIB chronic kidney disease with baseline creatinine around 2.2, type 2 diabetes, essential hypertension, hyperlipidemia
--- NOTE | 2021-06-02 16:13 | P.CNPUL ---
History of Present Illness Consult date: 06/02/21 Requesting physician: Violet Perry Reason for consult: dyspnea, hypoxemia, pneumonia, abnormal CXR/CT Chief complaint: Shortness of breath History of present illness: This is a 60-year-old white male patient with previous history of coronary artery disease, and coronary artery bypass grafting over 30 years ago, with subsequent re-do CABG, COPD, diabetes mellitus, chronic and ongoing history of smoking, patient is supposed to wear oxygen at home however he states his oxygen machine has been broken and he has not been wearing it. Patient is a 1-2 pack per day smoker, for the past 40-50 years. His bypass surgeries were done at the [facility] in [place], the first one was done in his 30s. Patient follows with Dr. Plaza for his primary care services, he used to see Dr. Keri meeks in the remote past for his history of COPD, the severity is unknown to us at this time. Patient came into the emergency department on 06/01/2021 for evaluation of shortness of breath which has been progressive. He has been having some chest pain as well. He reported cough, some yellow phlegm pr oduction. No hemoptysis. Chest x-ray showed chronic changes and cardiomegaly without acute pulmonary process. He was tested for COVID-19 and he was found to be negative, his lab work showed CBC within normal limits, normal white count of 6.5, hemoglobin of 14.1, INR 1.0, sodium of 134, the rest of electrolytes were within normal limits, BUN of 34 creatinine of 2.3, lactic acid of 0.7, magnesium of 1.5, LFTs were within normal limits, troponins were 0.039, 0.047, 0.039, proBNP was 1040. EKG showed sinus bradycardia with incomplete left bundle branch block pattern, and T wave inversion in the lateral leads. Echocardiogram was completed showing EF of greater than 55%, mild aortic valve sclerosis, mild MR, mild TR. Patient is congested, wheezy, and his COPD is active. He was started on nebulized bronchodilators, he did receive a dose of IV Lasix in the ER, and this consultation was initiated. Patient had a recent CT of the abdomen and pelvis in April for investigation of abdominal pain which showed distal colonic diverticulosis without diverticulitis, and enlarging infrarenal abdominal aortic aneurysm measuring up to 6.4 cm currently. Vascular surgery has been consulted. Review of Systems All systems: negative Constitutional: Denies chills, Denies fever Eyes: denies blurred vision, denies pain Ears, nose, mouth and throat: Denies headache, Denies sore throat Cardiovascular: Denies chest pain, Denies shortness of breath Respiratory: Reports cough with sputum, Reports dyspnea, Reports home oxygen, Reports respiratory infections, Reports wheezing, Denies cough Gastrointestinal: Denies abdominal pain, Denies diarrhea, Denies nausea, Denies vomiting Musculoskeletal: Denies myalgias Integumentary: Denies pruritus, Denies rash Neurological: Denies numbness, Denies weakness Psychiatric: Denies anxiety, Denies depression Endocrine: Denies fatigue, Denies weight change Past Medical History Past Medical History: COPD, Diabetes Mellitus, Hyperlipidemia, Myocardial Infarction ([place]) History of Any Multi-Drug Resistant Organisms: None Reported Past Surgical History: Appendectomy, Coronary Bypass/CABG, Heart Catheterization With Stent Past Psychological History: No Psychological Hx Reported Smoking Status: Current every day smoker Past Alcohol Use History: None Reported Past Drug Use History: None Reported - Past Family History Father Family Medical History: Hypertension Medications and Allergies Home Medications Medication Instructions Recorded Confirmed Type Allopurinol [Zyloprim] 300 mg PO DAILY 06/01/21 06/01/21 History Aspirin EC [Ecotrin Low Dose] 81 mg PO DAILY 06/01/21 06/01/21 History Clopidogrel [Plavix] 75 mg PO DAILY 06/01/21 06/01/21 History Diltiazem HCl [Diltiazem HCl 24Hr 120 mg PO DAILY 06/01/21 06/01/21 History ER (CD)] Escitalopram [Lexapro] 20 mg PO DAILY 06/01/21 06/01/21 History HYDROcodone/APAP 7.5-325MG [[place] 1 tab PO QID PRN 06/01/21 06/01/21 History 7.5-325] Insulin Detemir (Levemir) [Levemir] 10 units SQ DAILY 06/01/21 06/01/21 History Insulin Detemir (Levemir) [Levemir] 42 units SQ HS 06/01/21 06/01/21 History Isosorbide Mononitrate ER [Imdur] 30 mg PO DAILY 06/01/21 06/01/21 History Nitroglycerin Sl Tabs [Nitrostat] 0.4 mg SL Q5M PRN 06/01/21 06/01/21 History Omeprazole 20 mg PO DAILY 06/01/21 06/01/21 History Pioglitazone [Actos] 30 mg PO DAILY 06/01/21 06/01/21 History Simvastatin [Zocor] 40 mg PO DAILY 06/01/21 06/01/21 History Allergies Allergy/AdvReac Type Severity Reaction Status Date / Time No Known Allergies Allergy Verified 06/01/21 18:25 Physical Exam Vitals: Vital Signs Temp Pulse Resp BP Pulse Ox 06/02/21 15:39 64 06/02/21 15:31 60 06/02/21 12:53 80 18 97 06/02/21 11:22 62 06/02/21 11:14 60 06/02/21 09:49 97.7 F 62 18 129/69 95 06/02/21 05:30 62 18 140/93 95 06/02/21 04:05 61 06/02/21 03:54 56 L 06/02/21 01:54 60 16 123/96 92 L 06/01/21 22:15 48 L 06/01/21 22:03 51 L 93 L 06/01/21 21:02 47 L 16 154/91 95 06/01/21 19:00 18 06/01/21 18:13 52 L 06/01/21 18:07 50 L 06/01/21 17:53 51 L 16 162/92 96 GENERAL EXAM: Alert, pleasant, 60-year-old white male, on 2 L of oxygen with pulse ox 97%, congested, coughing, wheezing comfortable in no apparent distress. HEAD: Normocephalic/atraumatic. EYES: Normal reaction of pupils, equal size. Conjunctiva pink, sclera white. NOSE: Clear with pink turbinates. THROAT: No erythema or exudates. NECK: No masses, no JVD, no thyroid enlargement, no adenopathy. CHEST: No chest wall deformity. Symmetrical expansion. LUNGS: Equal air entry with diffuse wheezing and rhonchi CVS: Regular rate and rhythm, normal S1 and S2, no gallops, no murmurs, no rubs ABDOMEN: Soft, nontender. No hepatosplenomegaly, normal bowel sounds, no guarding or rigidity. EXTREMITIES: No clubbing, no edema, no cyanosis, 2+ pulses and upper and lower extremities. MUSCULOSKELETAL: Muscle strength and tone normal. SPINE: No scoliosis or deformity SKIN: No rashes CENTRAL NERVOUS SYSTEM: Alert and oriented -3. No focal deficits, tone is normal in all 4 extremities. PSYCHIATRIC: Alert and oriented -3. Appropriate affect. Intact judgment and insight. Results - Laboratory Findings CBC and BMP: 06/02/21 07:04 06/02/21 07:04 PT/INR, D-dimer PT 10.4 sec (9.0-12.0) 06/01/21 16:08 INR 1.0 (<1.2) 06/01/21 16:08 Abnormal lab findings: Abnormal Labs 06/01/21 06/01/21 06/01/21 16:08 16:08 21:26 Lymphocytes # Sodium 134 L Potassium Chloride BUN 34 H Creatinine 2.30 H Glucose 144 H POC Glucose (mg/dL) Hemoglobin A1c Magnesium 1.5 L Troponin I 0.039 H* 0.047 H* 06/02/21 06/02/21 06/02/21 00:19 01:44 07:04 Lymphocytes # 0.8 L Sodium Potassium Chloride BUN Creatinine Glucose POC Glucose (mg/dL) 171 H Hemoglobin A1c Magnesium Troponin I 0.039 H* 06/02/21 06/02/21 07:04 07:04 Lymphocytes # Sodium Potassium 3.0 L Chloride 97 L BUN 37 H Creatinine 2.30 H Glucose 184 H POC Glucose (mg/dL) Hemoglobin A1c 6.5 H Magnesium Troponin I - Diagnostic Findings Chest x-ray: report reviewed, image reviewed Additional studies: EKG reviewed, echocardiogram results reviewed Assessment and Plan Plan: Assessment: #1. Acute on chronic hypoxic respiratory failure related to acute exacerbation of COPD, chest x-ray showed chronic changes and cardiomegaly without acute pulmonary process, COVID-19 PCR was negative #2. Troponin elevation, cardiology is on the case, please refer to the consultation by cardiology #3. History of coronary artery disease, status post coronary artery bypass grafting 30 years ago, with subsequent redo CABG, and coronary artery stenting #4. COPD, supposed to wear home oxygen at 2 L, however has not been wearing it because of broken oxygen equipment #5. Chronic and ongoing history of smoking, carries 40-50 years of smoking, 1-2 packs per day #6. Infrarenal abdominal aortic aneurysm measuring 6.4 cm, vascular surgery following #7. Diabetes mellitus type 2 #8. Hypertension #9. Hyperlipidemia #10. Chronic kidney disease Plan: Continue IV steroids and bronchodilators Chest x-ray has been reviewed, labs reviewed We will add doxycycline 100 mg twice daily Smoking cessation has been recommended COVID-19 PCR was negative will continue to follow his clinical course and make further recommendations I performed a history & physical examination of the patient and discussed their management with my nurse practitioner, Faith Warren. I reviewed the nurse practitioner's note and agree with the documented findings and plan of care. Lung sounds are positive for diffuse wheezes throughout the lung fisher. The findings and the impression was discussed with the patient. I attest to the documentation by the nurse practitioner. Time with Patient: Greater than 30
[2021-06-02] MEDS ORDERED: Potassium Replacement Protocol 1 EACH MISC MISCELLANE PRN (16:42)
[2021-06-02] MEDS: POTASSIUM CHLORIDE ER 20 MEQ TAB.ER PO SCH ×2 (17:12→18:01)
[2021-06-02 19:58] LABS: Glucose,Whole Blood 285 mg/dL (75-99)
[2021-06-02] MEDS ORDERED: ATORVASTATIN 40 MG TAB PO SCH (21:00)
[2021-06-02] MEDS: SYMBICORT 160-4.5 MCG INHALER INHALATION SCH (21:09)
[2021-06-02] MEDS: DOXYCYCLINE 100 MG CAP PO SCH (22:13)
[2021-06-03] MEDS: IPRATROPIUM-ALBUTEROL 3 ML NEB INHALATION SCH ×7 (00:16→23:42)
[2021-06-03 06:02] LABS: Glucose,Whole Blood 181 mg/dL (75-99)
[2021-06-03] MEDS: PANTOPRAZOLE 40 MG TABLET PO SCH (06:34)
[2021-06-03] MEDS: carvediloL 6.25 MG TAB PO SCH (06:34)
[2021-06-03] MEDS: SYMBICORT 160-4.5 MCG INHALER INHALATION SCH ×2 (08:04→19:33)
[2021-06-03] MEDS: INSULIN DETEMIR (LEVEMIR) 100 UNIT/ML SYR SQ SCH ×2 (08:23→20:08)
[2021-06-03] MEDS: ASPIRIN 81 MG PO SCH (08:23)
[2021-06-03] MEDS: ISOSORBIDE MONONITRATE ER 30 MG TAB.ER.24H PO SCH (08:23)
[2021-06-03] MEDS: methylPREDNISolone SOD SUCCI 40 MG/ML 1 ML VIAL IV SCH ×3 (08:23→23:02)
[2021-06-03] MEDS: ESCITALOPRAM 20 MG TAB PO SCH (08:23)
[2021-06-03] MEDS: allopurinoL 300 MG TAB PO SCH (08:23)
[2021-06-03] MEDS: DOXYCYCLINE 100 MG CAP PO SCH ×2 (08:23→20:08)
[2021-06-03] MEDS: CLOPIDOGREL 75 MG TAB PO SCH (08:23)
[2021-06-03 09:16] LABS: Calcium 9.9 mg/dL (8.4-10.2); Potassium 3.6 mmol/L (3.5-5.1)
--- NOTE | 2021-06-03 10:45 | P.PN ---
Subjective Progress Note Date: 06/03/21 Patient was seen and examined lying in bed. No acute changes through the night. He has been afebrile. He denies any chest pain or abdominal pain. He remains on 4 L nasal cannula, oxygen saturation 96%. Cardiology recommending AAA repair while inpatient if possible. They will continue to maximize medical management for blood pressures at this time. Objective - Vital Signs Vital signs: Vital Signs Temp 98.2 F 06/03/21 08:00 Pulse 60 06/03/21 08:16 Resp 18 06/03/21 08:00 BP 178/95 06/03/21 08:00 Pulse Ox 96 06/03/21 08:00 Intake & Output 06/02/21 06/03/21 06/03/21 18:59 06:59 18:59 Weight 107.955 kg 104.7 kg Other: Voiding Method Toilet # Voids 1 - Exam General appearance: The patient is alert, oriented, in no acute distress. HET: Head is normocephalic and atraumatic. Pupils are equal and reactive. Oropharynx is clear without lesions. Neck: Supple without lymphadenopathy. Trachea midline. Heart: S1 S2. Regular rate and rhythm. Lungs: Wheezing, rhonchi. Abdomen: Soft, nontender, nondistended. Extremities: Normal skin color and turgor. No cyanosis, rash, ulceration, clubbing, or edema. Palpable radial pulses bilaterally. Neurological: No focal deficits. Strength and sensation are grossly intact. - Labs CBC & Chem 7: 06/02/21 07:04 06/03/21 08:15 Labs: Abnormal Lab Results - Last 24 Hours (Table) 06/02/21 06/02/21 06/03/21 Range/Units 07:04 19:57 05:58 POC Glucose (mg/dL) 285 H 181 H (75-99) mg/dL Hemoglobin A1c 6.5 H (4.0-6.0) % Assessment and Plan Assessment: 1. Infrarenal Abdominal aortic aneurysm measuring 6.4 cm 2. Chronic COPD with exacerbation 3. History of coronary artery disease, status post CABG, cardiac stents 4. Elevated troponins 5. Diabetes mellitus, hypertension, hyperlipidemia, chronic kidney disease Plan: 1. Continue symptomatic and supportive care 2. Advised smoking cessation 3. Keep blood pressure controlled 4. Continue medical management per primary medicine team 5. Will need cardiac clearance prior to any vascular surgical procedure 6. Recommend CTA abdomen and pelvis once kidney function improves 7. Further recommendations forthcoming regarding abdominal aortic aneurysm repair in timing Thank you for this consultation, and allowing us take part in the plan of care of your patient during his hospital stay The impression and plan of care has been dictated as directed. Dr. Tam I performed a history and examination of this patient, discussed the same with the dictator. I agree with the dictator's note ,documented as a scribe. Any additional findings or plans will be noted.
[2021-06-03 11:35] LABS: Glucose,Whole Blood 188 mg/dL (75-99)
--- NOTE | 2021-06-03 12:36 | P.PN ---
Subjective Progress Note Date: 06/03/21 HISTORY OF PRESENT ILLNESS: This is a 60-year-old male with a past medical history significant for COPD, coronary artery disease with previous CABG performed at [facility], hyp ertension, hyperlipidemia, and nicotine dependence. 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 We have been asked to see the patient in consultation for chest pain. Patient examined at the bedside. Patient states he came to the hospital secondary to SOB. He also reports intermittent chest pain over the past 2 weeks. He states the pain is usually in the middle of his chest. He denies any radiat ion of the pain. Patient is a current smoker and smokes 1 pack per day. EKG reveals sinus mechanism with ST depression in lateral leads. There is no previous EKG for comparison. Chest xray chronic changes and cardiomegaly without acute pulmonary process Laboratory data: WBC 6.8. Hemoglobin 14.7. Platelet count 168. Sodium 138. Potassium 3.0. B UN 37. Creatinine 2.30. Troponin 0.039. 0.047. 0.039. Current home cardiac medications include simvastatin 40 mg daily, Imdur 30 mg daily, diltiazem 120 mg daily, Plavix 75 mg daily, aspirin [address] abdomen and pelvis enlarging infrarenal AAA up to 6.4 cm currently. Additional focal aneurysm distal right common iliac artery up to 4 cm. Advise surgical and/or endovascular referral. 06/03/2021 Patient examined this morning at the bedside. Patient denies chest pain or pressure. He reports his shortness of breath is improving. Echocardiogram completed revealed ejection fraction greater than 55%. PHYSICAL EXAM: VITAL SIGNS: Reviewed. GENERAL: Well-developed in no acute distress. NECK: Supple. No JVD or thyromegaly LUNGS: Respirations even and unlabored. Lungs with scattered rhonchi and expiratory wheezing throughout. HEART: Regular rate and rhythm. S1 and S2 heard. EXTREMITIES: Normal range of motion. No clubbing or cyanosis. Peripheral pulses intact. No lower extremity edema ASSESSMENT: Acute exacerbation of COPD Abnormal troponin, not suggestive of acute coronary syndrome Infrarenal abdominal aortic aneurysm measuring 6.4 cm History of coronary artery disease with previous CABG Hypertension Hyperlipidemia Diabetes Nicotine dependence PLAN: Continue current cardiac medications Dr. Cavazos recommends inpatient repair of AAA. Dr. Cavazos spoke with Nikki vascular [employer] and relayed this information to her. Further recommendations pending patient course Nurse practitioner note has been reviewed by physician. Signing provider agrees with the documented findings, assessment, and plan of care. Objective - Vital Signs Vital signs: Vital Signs Temp 97.4 F L 06/03/21 11:57 Pulse 64 06/03/21 11:57 Resp 16 06/03/21 11:57 BP 163/80 06/03/21 11:57 Pulse Ox 98 06/03/21 11:57 Intake & Output 06/02/21 06/03/21 06/03/21 18:59 06:59 18:59 Weight 107.955 kg 104.7 kg Other: Voiding Method Toilet # Voids 1 - Labs CBC & Chem 7: 06/02/21 07:04 06/03/21 08:15 Labs: Abnormal Lab Results - Last 24 Hours (Table) 06/02/21 06/02/21 06/03/21 Range/Units 07:04 19:57 05:58 Chloride (98-107) mmol/L Carbon Dioxide (22-30) mmol/L BUN (9-20) mg/dL Creatinine (0.66-1.25) mg/dL Glucose (74-99) mg/dL POC Glucose (mg/dL) 285 H 181 H (75-99) mg/dL Hemoglobin A1c 6.5 H (4.0-6.0) % 06/03/21 06/03/21 Range/Units 08:15 11:34 Chloride 96 L (98-107) mmol/L Carbon Dioxide 32 H (22-30) mmol/L BUN 49 H (9-20) mg/dL Creatinine 2.45 H (0.66-1.25) mg/dL Glucose 178 H (74-99) mg/dL POC Glucose (mg/dL) 188 H (75-99) mg/dL Hemoglobin A1c (4.0-6.0) %
--- NOTE | 2021-06-03 13:19 | P.PN ---
Subjective She is doing fairly well today. He denies any chest pain this morning. He still having some wheezing. Objective - Vital Signs Vital signs: Vital Signs Temp 97.4 F L 06/03/21 11:57 Pulse 64 06/03/21 11:57 Resp 16 06/03/21 11:57 BP 163/80 06/03/21 11:57 Pulse Ox 98 06/03/21 11:57 Intake & Output 06/02/21 06/03/21 06/03/21 18:59 06:59 18:59 Intake Total 0 Balance 0 Weight 107.955 kg 104.7 kg Intake: Oral 0 Other: Voiding Method Toilet # Voids 1 3 - Exam General: The patient is awake and alert, in no distress Eye: there is normal conjunctiva bilaterally. Neck: The neck is supple, there is no JVD. Cardiovascular: Normal S1-S2, no S3-S4, no murmurs. Respiratory: Lungs with end expiratory wheezing Gastrointestinal: Abdomen is soft, nontender Musculoskeletal: There is no pedal edema. Neurological:. Speech is normal. Skin: Skin is warm and dry - Labs CBC & Chem 7: 06/02/21 07:04 06/03/21 08:15 Labs: Abnormal Lab Results - Last 24 Hours (Table) 06/02/21 06/03/21 06/03/21 Range/Units 19:57 05:58 08:15 Chloride 96 L (98-107) mmol/L Carbon Dioxide 32 H (22-30) mmol/L BUN 49 H (9-20) mg/dL Creatinine 2.45 H (0.66-1.25) mg/dL Glucose 178 H (74-99) mg/dL POC Glucose (mg/dL) 285 H 181 H (75-99) mg/dL 06/03/21 Range/Units 11:34 Chloride (98-107) mmol/L Carbon Dioxide (22-30) mmol/L BUN (9-20) mg/dL Creatinine (0.66-1.25) mg/dL Glucose (74-99) mg/dL POC Glucose (mg/dL) 188 H (75-99) mg/dL Assessment and Plan Assessment: This is a 60-year-old male with very complex past medical history noted below Presented to the emergency room with acute on chronic dyspnea and was found to be hypoxic. Patient is to have oxygen at home but ran out of it approximately a year ago did not see any doctors. He was evaluated in the ER and admitted to the hospital for further management of his medical problems noted below. 1. Acute on chronic hypoxic respiratory failure probably secondary to underlying COPD. O2 sats greater than 90% on 2 L of oxygen via nasal cannula. 2. Troponin elevation, most likely non-thrombotic troponin leak secondary to demand/supply mismatch and hypoxia. Patient was seen and evaluated by cardiology. Echocardiogram showed preserved ejection fraction with no significant valvular or wall motion abnormalities. 3. Acute COPD exacerbation, started on bronchodilators and IV Solu-Medrol. Pulmonary consulted for further evaluation. 4. Infrarenal AAA measuring 6.4 cm noted on echo. Seen and evaluated by vascular surgery. Follow-up outpatient. Tobacco cessation encouraged. 5. Chronic medical problems, coronary artery disease with previous CABG, station IIIB chronic kidney disease with baseline creatinine around 2.2, type 2 diabetes, essential hypertension, hyperlipidemia Today, I reviewed his medication list and lab work results. Blood pressure may not well controlled. Home dose of Cardizem was discontinued by cardiology and he was started on Coreg. I would defer management to cardiology. Also cardiology requesting AAA repair during this admission which is currently discussed with vascular surgery.
--- NOTE | 2021-06-03 13:42 | P.PN ---
Subjective Progress Note Date: 06/03/21 This is a 60-year-old white male patient with previous history of coronary artery disease, and coronary artery bypass grafting over 30 years ago, with subsequent re-do CABG, COPD, diabetes mellitus, chronic and ongoing history of smoking, patient is supposed to wear oxygen at home however he states his oxygen machine has been broken and he has not been wearing it. Patient is a 1-2 pack per day smoker, for the past 40-50 years. His bypass surgeries were done at the [facility] in [place], the first one was done in his 30s. Patient follows with Dr. Plaza for his primary care services, he used to see Dr. Ventura in the remote past for his history of COPD, the severity is unknown to us at this time. Patient came into the emergency department on 06/01/2021 for evaluation of shortness of breath which has been progressive. He has been having some chest pain as well. He reported cough, some yellow phlegm production. No hemoptysis. Chest x-ray showed chronic changes and cardiomegaly without acute pulmonary process. He was tested for COVID-19 and he was found to be negative, his lab work showed CBC within normal limits, normal white count of 6.5, hemoglobin of 14.1, INR 1.0, sodium of 134, the rest of electrolytes were within normal limits, BUN of 34 creatinine of 2.3, lactic acid of 0.7, magnesium of 1.5, LFTs were within normal limits, troponins were 0.039, 0.047, 0.039, pro BNP was 1040. EKG showed sinus bradycardia with incomplete left bundle branch block pattern, and T wave inversion in the lateral leads. Echocardiogram was completed showing EF of greater than 55%, mild aortic valve sclerosis, mild MR, mild TR. Patient is congested, wheezy, and his COPD is active. He was started on nebulized bronchodilators, he did receive a dose of IV Lasix in the ER, and this consultation was initiated. Patient had a recent CT of the abdomen and pelvis in April for investigation of abdominal pain which showed distal colonic diverticulosis without diverticulitis, and enlarging infrarenal abdominal aortic aneurysm measuring up to 6.4 cm currently. Vascular surgery h as been consulted. The patient is seen today 06/03/2021 in follow-up on the selective care unit. H e is currently resting quite comfortably in bed. Awake and alert in no acute distress. He is maintaining O2 saturations in the upper 90s on 4 L/m per nasal cannula. He's been afebrile. Sodium 138. Potassium 3.6. BUN 49. Creatinine 2.45. Glucose 178. He is continued on DuoNeb inhalations, Symbicort, IV Solu- Medrol. Antibiotics in the form of doxycycline. Objective - Vital Signs Vital signs: Vital Signs Temp 97.4 F L 06/03/21 11:57 Pulse 64 06/03/21 11:57 Resp 16 06/03/21 11:57 BP 163/80 06/03/21 11:57 Pulse Ox 98 06/03/21 11:57 Intake & Output 06/02/21 06/03/21 06/03/21 18:59 06:59 18:59 Intake Total 0 Balance 0 Weight 107.955 kg 104.7 kg Intake: Oral 0 Other: Voiding Method Toilet # Voids 1 3 - Exam GENERAL EXAM: Alert, pleasant, 60-year-old male patient, on 4 L of oxygen with pulse ox 98%, comfortable in no apparent distress. HEAD: Normocephalic/atraumatic. EYES: Normal reaction of pupils, equal size. Conjunctiva pink, sclera white. NOSE: Clear with pink turbinates. THROAT: No erythema or exudates. NECK: No masses, no JVD, no thyroid enlargement, no adenopathy. CHEST: No chest wall deformity. Symmetrical expansion. LUNGS: Equal air entry with wheezing and rhonchi CVS: Regular rate and rhythm, normal S1 and S2, no gallops, no murmurs, no rubs ABDOMEN: Soft, nontender. No hepatosplenomegaly, normal bowel sounds, no guarding or rigidity. EXTREMITIES: No clubbing, no edema, no cyanosis, 2+ pulses and upper and lower extremities. MUSCULOSKELETAL: Muscle strength and tone normal. SPINE: No scoliosis or deformity SKIN: No rashes CENTRAL NERVOUS SYSTEM: Alert and oriented -3. No focal deficits, tone is normal in all 4 extremities. PSYCHIATRIC: Alert and oriented -3. Appropriate affect. Intact judgment and insight. - Labs CBC & Chem 7: 06/02/21 07:04 06/03/21 08:15 Labs: Abnormal Lab Results - Last 24 Hours (Table) 06/02/21 06/03/21 06/03/21 Range/Units 19:57 05:58 08:15 Chloride 96 L (98-107) mmol/L Carbon Dioxide 32 H (22-30) mmol/L BUN 49 H (9-20) mg/dL Creatinine 2.45 H (0.66-1.25) mg/dL Glucose 178 H (74-99) mg/dL POC Glucose (mg/dL) 285 H 181 H (75-99) mg/dL 06/03/21 Range/Units 11:34 Chloride (98-107) mmol/L Carbon Dioxide (22-30) mmol/L BUN (9-20) mg/dL Creatinine (0.66-1.25) mg/dL Glucose (74-99) mg/dL POC Glucose (mg/dL) 188 H (75-99) mg/dL Assessment and Plan Assessment: 1 Acute on chronic hypoxic respiratory failure related to acute exacerbation of COPD, chest x-ray showed chronic changes and cardiomegaly without acute pulmonary process, COVID-19 PCR was negative 2 Troponin elevation, cardiology is on the case, please refer to the consultation by cardiology 3 History of coronary artery disease, status post coronary artery bypass grafting 30 years ago, with subsequent redo CABG, and coronary artery stenting 4 COPD, supposed to wear home oxygen at 2 L, however has not been wearing it because of broken oxygen equipment 5 Chronic and ongoing history of smoking, carries 40-50 years of smoking, 1-2 packs per day 6 Infrarenal abdominal aortic aneurysm measuring 6.4 cm, vascular surgery following 7 Diabetes mellitus type 2 8 Hypertension 9 Hyperlipidemia 10 Chronic kidney disease Plan: The patient was seen and evaluated by Dr. Igor Carrillo from the pulmonary standpoint Continue with the current treatment plan Titrate the FiO2 as tolerated Increase activity as tolerated We will continue to follow I, the cosigning physician, performed a history & physical examination of the patient. Lungs sounds with bilateral wheezing, diminished. Maintaining good O2 saturations in the 90s on 4 L/m per nasal cannula. I discussed the assessment and plan of care with my nurse practitioner, Micki Garcia. I attest to the above note as dictated by her.
[2021-06-03] MEDS: carvediloL 12.5 MG TAB PO SCH (16:31)
[2021-06-03 16:35] LABS: Glucose,Whole Blood 273 mg/dL (75-99)
[2021-06-03 20:08] LABS: Glucose,Whole Blood 252 mg/dL (75-99)
[2021-06-03] MEDS: ATORVASTATIN 80 MG TAB PO SCH (20:08)
[2021-06-03] MEDS ORDERED: hydrALAZINE HCL 25 MG TAB PO STA (22:33)
[2021-06-04] MEDS: IPRATROPIUM-ALBUTEROL 3 ML NEB INHALATION SCH ×5 (03:50→20:33)
[2021-06-04 06:21] LABS: Glucose,Whole Blood 167 mg/dL (75-99)
[2021-06-04] MEDS: carvediloL 12.5 MG TAB PO SCH ×2 (06:33→17:05)
[2021-06-04] MEDS: PANTOPRAZOLE 40 MG TABLET PO SCH (06:33)
[2021-06-04] MEDS: SYMBICORT 160-4.5 MCG INHALER INHALATION SCH ×2 (07:40→20:32)
[2021-06-04 07:58] LABS: Glucose,Whole Blood 192 mg/dL (75-99)
[2021-06-04] MEDS: DOXYCYCLINE 100 MG CAP PO SCH ×2 (08:07→20:06)
[2021-06-04] MEDS: INSULIN DETEMIR (LEVEMIR) 100 UNIT/ML SYR SQ SCH ×2 (08:07→20:06)
[2021-06-04] MEDS: allopurinoL 300 MG TAB PO SCH (08:07)
[2021-06-04] MEDS: CLOPIDOGREL 75 MG TAB PO SCH (08:07)
[2021-06-04] MEDS: ISOSORBIDE MONONITRATE ER 30 MG TAB.ER.24H PO SCH (08:07)
[2021-06-04] MEDS: ASPIRIN 81 MG PO SCH (08:07)
[2021-06-04] MEDS: predniSONE 20 MG TAB PO SCH (08:07)
[2021-06-04] MEDS: ESCITALOPRAM 20 MG TAB PO SCH (08:07)
[2021-06-04 08:09] LABS: Basophils % (A) 0 %; Eosinophils # (A) 0.1 k/uL (0-0.7); Eosinophils % (A) 1 %; HCT 41.8 % (39.0-53.0); HGB 13.7 gm/dL (13.0-17.5); Lymphocytes # (A) 0.6 k/uL (1.0-4.8); Lymphocytes % (A) 4 %; MCH 31.2 pg (25.0-35.0); MCHC 32.7 g/dL (31.0-37.0); MCV 95.6 fL (80.0-100.0); Mean Platelet Volume 9.9; Monocytes # (A) 0.2 k/uL (0-1.0); Monocytes % (A) 1 %; Neutrophils # (A) 15.2 k/uL (1.3-7.7); Neutrophils % (A) 94 %; Platelet Count 168 k/uL (150-450); RBC 4.37 m/uL (4.30-5.90); RDW 13.6 % (11.5-15.5); WBC 16.1 k/uL (3.8-10.6)
[2021-06-04 09:03] LABS: Calcium 9.5 mg/dL (8.4-10.2); Potassium 3.7 mmol/L (3.5-5.1)
[2021-06-04] MEDS: SODIUM CHLORIDE 0.45% 1,000 ML IV SCH ×2 (09:30→20:07)
[2021-06-04 11:22] LABS: Glucose,Whole Blood 226 mg/dL (75-99)
--- NOTE | 2021-06-04 12:01 | CONS ---
CONSULTATION REASON FOR CONSULT: Renal failure. HISTORY OF PRESENT ILLNESS: Patient is a 60-year-old male who was admitted to the hospital on 06/01/2021 with complaints of shortness of breath. Patient was apparently supposed to be on oxygen at home, but he did not have it and had developed worsening breathing difficulty. He denied any fevers or chills. Patient had sustained a fall prior to admission. There were no mental status changes noted. Patient's serum creatinine was 2.3 mg/dL. It is currently down to 1.89. Previous creatinine 2.4 on 05/18/2021. We do not have any other labs available for comparison. Blood pressure has been around 120 to 140 mmHg systolic. No evidence of hypotension noted. Patient denies use of any nonsteroidal anti-inflammatory agents. I do not see any ERVIN inhibitors or angiotensin receptor blockers on his home med list. Patient has been voiding. He reports no significant difficulty in voiding. Echocardiogram shows ejection fraction about 55%. Patient was also found to have infrarenal abdominal aortic aneurysm measuring 6.4 cm. Aortic angiogram has been recommended. This aneurysm was noted on a previous CT of the abdomen done on 05/18/2021 without IV contrast. PAST MEDICAL HISTORY: Significant for hypertension, COPD, type 2 diabetes, hyperlipidemia, coronary artery disease, history of [place]. PAST SURGICAL HISTORY: Appendectomy, coronary artery bypass surgery, cardiac catheterization, coronary stent placement. SOCIAL HISTORY: Patient is a daily smoker. No history of drug abuse or alcohol abuse. MEDICATIONS: Medications prior to admission included allopurinol, aspirin, Plavix, diltiazem, Lexapro, insulin, Imdur, Nitrostat, omeprazole, Actos, Zocor. ALLERGIES: NONE. REVIEW OF SYSTEMS: As per HPI. PHYSICAL EXAMINATION: Patient is comfortable, awake. He is not in any acute distress. Mildly short of breath. Blood pressure 130/73, heart rate 56 per minute. He is afebrile. EXAMINATION OF THE HEART: S1 and S2. EXAMINATION OF LUNGS: Bilateral breath sounds are heard. Decreased breath sounds at the bases. Abdomen is soft, non-tender. Examination of lower extremities shows no evidence of edema. PHARMACEUTICAL SALESPERSON EXAM: Grossly intact. LABS: Sodium 138, potassium 3.7, chloride 101. CO2 is 32, BUN 52, creatinine 1.89, hemoglobin 13.7 g/dL. Chest x-ray from admission shows chronic lung changes with cardiomegaly. ASSESSMENT: 1. Chronic kidney disease NKF stage IIIB, with baseline creatinine about 1.8 to 2 mg/dL. Previous creatinine about 2.4 on 05/18/2021. No other labs available for comparison. There may be a component of acute kidney injury which has improved. Currently patient is maintained on IV hydration. I would avoid aggressive IV hydration. We also need to rule out obstructive uropathy. Check bladder scan. Rule out urine retention. Previous CT scan done on 05/18/2021 did not show any evidence of hydronephrosis. 2. Infrarenal large aortic aneurysm about 6.4 cm, with plans for aortic angiogram down the road when renal function stabilizes. 3. Chronic obstructive pulmonary disease with home oxygen. 4. Type 2 diabetes. PLAN: Check UA. Continue IV fluids for now. Check phosphorus levels. Avoid hypotension. Repeat labs in a.m. I will hold off on ultrasound of the kidneys, as patient had a CT scan done on 05/18 which did not show any evidence of hydronephrosis. Patient will need outpatient followup for CKD. Thank you for this consultation. Will continue to follow the patient with you during his hospitalization. MMODL / IJN: [id number] /
--- NOTE | 2021-06-04 12:36 | P.PN ---
Subjective Progress Note Date: 06/04/21 Patient was seen and examined lying in bed. No acute changes through the night. He has been afebrile. He denies any chest pain or abdominal pain. He remains on 4 L nasal cannula, oxygen saturation 96%. Objective - Vital Signs Vital signs: Vital Signs Temp 97.7 F 06/04/21 03:23 Pulse 60 06/04/21 07:54 Resp 18 06/04/21 03:23 BP 147/71 06/04/21 03:23 Pulse Ox 98 06/04/21 03:23 Intake & Output 06/03/21 06/04/21 06/04/21 18:59 06:59 18:59 Intake Total 236 480 Balance 236 480 Weight 105 kg Intake: Oral 236 480 Other: Voiding Method Toilet Toilet # Voids 3 1 - Exam General appearance: The patient is alert, oriented, in no acute distress. HET: Head is normocephalic and atraumatic. Pupils are equal and reactive. Oropharynx is clear without lesions. Neck: Supple without lymphadenopathy. Trachea midline. Heart: S1 S2. Regular rate and rhythm. Lungs: Wheezing, rhonchi. Abdomen: Soft, nontender, nondistended. Extremities: Normal skin color and turgor. No cyanosis, rash, ulceration, clubbing, or edema. Palpable radial pulses bilaterally. Neurological: No focal deficits. Strength and sensation are grossly intact. - Labs CBC & Chem 7: 06/04/21 07:56 06/04/21 07:56 Labs: Abnormal Lab Results - Last 24 Hours (Table) 06/03/21 06/03/21 06/03/21 Range/Units 08:15 11:34 16:34 WBC (3.8-10.6) k/uL Neutrophils # (1.3-7.7) k/uL Lymphocytes # (1.0-4.8) k/uL Chloride 96 L (98-107) mmol/L Carbon Dioxide 32 H (22-30) mmol/L BUN 49 H (9-20) mg/dL Creatinine 2.45 H (0.66-1.25) mg/dL Glucose 178 H (74-99) mg/dL POC Glucose (mg/dL) 188 H 273 H (75-99) mg/dL 06/03/21 06/04/21 06/04/21 Range/Units 20:06 06:19 07:56 WBC 16.1 H (3.8-10.6) k/uL Neutrophils # 15.2 H (1.3-7.7) k/uL Lymphocytes # 0.6 L (1.0-4.8) k/uL Chloride (98-107) mmol/L Carbon Dioxide (22-30) mmol/L BUN (9-20) mg/dL Creatinine (0.66-1.25) mg/dL Glucose (74-99) mg/dL POC Glucose (mg/dL) 252 H 167 H (75-99) mg/dL 06/04/21 Range/Units 07:56 WBC (3.8-10.6) k/uL Neutrophils # (1.3-7.7) k/uL Lymphocytes # (1.0-4.8) k/uL Chloride (98-107) mmol/L Carbon Dioxide (22-30) mmol/L BUN (9-20) mg/dL Creatinine (0.66-1.25) mg/dL Glucose (74-99) mg/dL POC Glucose (mg/dL) 192 H (75-99) mg/dL Assessment and Plan Assessment: 1. Infrarenal Abdominal aortic aneurysm measuring 6.4 cm 2. Chronic COPD with exacerbation 3. History of coronary artery disease, status post CABG, cardiac stents 4. Elevated troponins 5. Diabetes mellitus, hypertension, hyperlipidemia, chronic kidney disease 6. Acute kidney injury Plan: 1. Continue symptomatic and supportive care 2. Advised smoking cessation 3. Keep blood pressure controlled 4. Continue medical management per primary medicine team 5. Will need cardiac clearance prior to any vascular surgical procedure 6. Recommend CTA abdomen and pelvis once kidney function improves 7. Consult to nephrology 8. Further recommendations and decisions regarding timing of abdominal aortic aneurysm forthcoming, there is no indication for any immediate/emergent intervention Thank you for this consultation, and allowing us take part in the plan of care of your patient during his hospital stay The impression and plan of care has been dictated as directed. Dr. Garcia I performed a history and examination of this patient, discussed the same with the dictator. I agree with the dictator's note ,documented as a scribe. Any additional findings or plans will be noted.
--- NOTE | 2021-06-04 12:46 | P.PN ---
Subjective This is a 60-year-old male with a past medical history significant for COPD, coronary artery disease with previous CABG performed at [facility], hypertension, hyperlipidemia, and nicotine dependence. 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 We have been asked to see the patient in consultation for chest pain. Patient came to the hospital secondary to SOB, he had intermittent upper abdominal pain and some chest discomfort over the past [address] abdomen and pelvis enlarging infrarenal AAA up to 6.4 cm currently. Additional focal a neurysm distal right common iliac artery up to 4 cm. Advise surgical and/or endovascular referral. Echocardiogram completed revealed ejection fraction greater than 55%, mild MR, mild TR. Patient examined this morning at the bedside. Patient denies chest pain or pressure. He reports his shortness of breath is improving. Blood pressure 130/73, heart rate 55, afebrile, oxygen saturations on 4 L nasal cannula. Patient is currently maintained on aspirin 81 mg daily, atorvastatin 80 mg nightly, Plavix 75 mg daily, Imdur 30 mg daily, IV fluids, carvedilol 12.5mg BID. Laboratory data reviewed, WBC 6.1, hemoglobin 13.7, platelets 168, sodium 138, potassium 3.7, BUN 52, serum creatinine 1.8 PHYSICAL EXAM: VITAL SIGNS: Reviewed. GENERAL: Well-developed in no acute distress. NECK: Supple. No JVD or thyromegaly LUNGS: Respirations even and unlabored. Lungs with scattered rhonchi and expiratory wheezing throughout. HEART: Regular rate and rhythm. S1 and S2 heard. EXTREMITIES: Normal range of motion. No clubbing or cyanosis. Peripheral pulses intact. No lower extremity edema ASSESSMENT: Acute exacerbation of COPD- improving Abnormal troponin, not suggestive of acute coronary syndrome Infrarenal abdominal aortic aneurysm measuring 6.4 cm History of coronary artery disease with previous CABG Hypertension Hyperlipidemia Diabetes Nicotine dependence Acute Kidney Injury (unknown baseline) PLAN: Continue current cardiac medications Nephrology has been consulted for acute kidney injury Dr. Cavazos recommends inpatient repair of AAA. Patient is at high risk due to known CAD with CABG and COPD. From cardiology perspective, we recommend inpatient repair of patient's AAA and the benefit outweighs the risk at this time. When patient's COPD exacerbation improves and he is hemodynamically stable may proceed with inpatient repair of AAA. Further recommendations pending patient course Nurse practitioner note has been reviewed by physician. Signing provider agrees with the documented findings, assessment, and plan of care. Objective - Vital Signs Vital signs: Vital Signs Temp 98.1 F 06/04/21 08:00 Pulse 55 L 06/04/21 08:00 Resp 16 06/04/21 08:00 BP 138/73 06/04/21 08:00 Pulse Ox 96 06/04/21 08:00 Intake & Output 06/03/21 06/04/21 06/04/21 18:59 06:59 18:59 Intake Total 236 480 120 Balance 236 480 120 Weight 105 kg Intake: Oral 236 480 120 Other: Voiding Method Toilet Toilet Toilet Urinal # Voids 3 1 - Labs CBC & Chem 7: 06/04/21 07:56 06/04/21 07:56 Labs: Abnormal Lab Results - Last 24 Hours (Table) 06/03/21 06/03/21 06/03/21 Range/Units 11:34 16:34 20:06 WBC (3.8-10.6) k/uL Neutrophils # (1.3-7.7) k/uL Lymphocytes # (1.0-4.8) k/uL Carbon Dioxide (22-30) mmol/L BUN (9-20) mg/dL Creatinine (0.66-1.25) mg/dL Glucose (74-99) mg/dL POC Glucose (mg/dL) 188 H 273 H 252 H (75-99) mg/dL 06/04/21 06/04/21 06/04/21 Range/Units 06:19 07:56 07:56 WBC 16.1 H (3.8-10.6) k/uL Neutrophils # 15.2 H (1.3-7.7) k/uL Lymphocytes # 0.6 L (1.0-4.8) k/uL Carbon Dioxide 32 H (22-30) mmol/L BUN 52 H (9-20) mg/dL Creatinine 1.89 H (0.66-1.25) mg/dL Glucose 173 H (74-99) mg/dL POC Glucose (mg/dL) 167 H (75-99) mg/dL 06/04/21 Range/Units 07:56 WBC (3.8-10.6) k/uL Neutrophils # (1.3-7.7) k/uL Lymphocytes # (1.0-4.8) k/uL Carbon Dioxide (22-30) mmol/L BUN (9-20) mg/dL Creatinine (0.66-1.25) mg/dL Glucose (74-99) mg/dL POC Glucose (mg/dL) 192 H (75-99) mg/dL
--- NOTE | 2021-06-04 13:50 | P.PN ---
Subjective Patient is doing fairly well today. No acute events overnight. Objective - Vital Signs Vital signs: Vital Signs Temp 97.9 F 06/04/21 12:00 Pulse 52 L 06/04/21 12:00 Resp 16 06/04/21 12:00 BP 146/71 06/04/21 12:00 Pulse Ox 95 06/04/21 12:00 Intake & Output 06/03/21 06/04/21 06/04/21 18:59 06:59 18:59 Intake Total 236 480 240 Balance 236 480 240 Weight 105 kg Intake: Oral 236 480 240 Other: Voiding Method Toilet Toilet Toilet Urinal # Voids 3 1 1 - Exam General: The patient is awake and alert, in no distress Eye: there is normal conjunctiva bilaterally. Neck: The neck is supple, there is no JVD. Cardiovascular: Normal S1-S2, no S3-S4, no murmurs. Respiratory: Lungs with end expiratory wheezing Gastrointestinal: Abdomen is soft, nontender Musculoskeletal: There is no pedal edema. Neurological:. Speech is normal. Skin: Skin is warm and dry - Labs CBC & Chem 7: 06/04/21 07:56 06/04/21 07:56 Labs: Abnormal Lab Results - Last 24 Hours (Table) 06/03/21 06/03/21 06/04/21 Range/Units 16:34 20:06 06:19 WBC (3.8-10.6) k/uL Neutrophils # (1.3-7.7) k/uL Lymphocytes # (1.0-4.8) k/uL Carbon Dioxide (22-30) mmol/L BUN (9-20) mg/dL Creatinine (0.66-1.25) mg/dL Glucose (74-99) mg/dL POC Glucose (mg/dL) 273 H 252 H 167 H (75-99) mg/dL 06/04/21 06/04/21 06/04/21 Range/Units 07:56 07:56 07:56 WBC 16.1 H (3.8-10.6) k/uL Neutrophils # 15.2 H (1.3-7.7) k/uL Lymphocytes # 0.6 L (1.0-4.8) k/uL Carbon Dioxide 32 H (22-30) mmol/L BUN 52 H (9-20) mg/dL Creatinine 1.89 H (0.66-1.25) mg/dL Glucose 173 H (74-99) mg/dL POC Glucose (mg/dL) 192 H (75-99) mg/dL 06/04/21 Range/Units 11:21 WBC (3.8-10.6) k/uL Neutrophils # (1.3-7.7) k/uL Lymphocytes # (1.0-4.8) k/uL Carbon Dioxide (22-30) mmol/L BUN (9-20) mg/dL Creatinine (0.66-1.25) mg/dL Glucose (74-99) mg/dL POC Glucose (mg/dL) 226 H (75-99) mg/dL Assessment and Plan Assessment: This is a 60-year-old male with very complex past medical history noted below Presented to the emergency room with acute on chronic dyspnea and was found to be hypoxic. Patient is to have oxygen at home but ran out of it approximately a year ago did not see any doctors. He was evaluated in the ER and admitted to the hospital for further management of his medical problems noted below. 1. Acute on chronic hypoxic respiratory failure probably secondary to underlying COPD. O2 sats greater than 90% on 2 L of oxygen via nasal cannula. 2. Troponin elevation, most likely non-thrombotic troponin leak secondary to demand/supply mismatch and hypoxia. Patient was seen and evaluated by cardiology. Echocardiogram showed preserved ejection fraction with no significant valvular or wall motion abnormalities. 3. Acute COPD exacerbation, started on bronchodilators and IV Solu-Medrol. Pulmonary consulted for further evaluation. 4. Infrarenal AAA measuring 6.4 cm noted on echo. Seen and evaluated by vascular surgery. Follow-up outpatient. Tobacco cessation encouraged. 5. Chronic medical problems, coronary artery disease with previous CABG, station IIIB chronic kidney disease with baseline creatinine around 2.2, type 2 diabetes, essential hypertension, hyperlipidemia Today, I reviewed his medication list and lab work results. Creatinine is slightly better but patient has CKD and his baseline creatinine is around 2. Preferably he should not get any IV contrast if possible. Blood pressure better controlled today.. Home dose of Cardizem was discontinued by cardiology and he was started on Coreg. Cardiology requesting AAA repair during this admission which is currently discussed with vascular surgery awaiting further recommendation.
--- NOTE | 2021-06-04 14:13 | P.PN ---
Subjective Progress Note Date: 06/04/21 This is a 60-year-old white male patient with previous history of coronary artery disease, and coronary artery bypass grafting over 30 years ago, with subsequent re-do CABG, COPD, diabetes mellitus, chronic and ongoing history of smoking, patient is supposed to wear oxygen at home however he states his oxygen machine has been broken and he has not been wearing it. Patient is a 1-2 pack per day smoker, for the past 40-50 years. His bypass surgeries were done at the [facility] in [place], the first one was done in his 30s. Patient follows with Dr. Plaza for his primary care services, he used to see Dr. Ventura in the remote past for his history of COPD, the severity is unknown to us at this time. Patient came into the emergency department on 06/01/2021 for evaluation of shortness of breath which has been progressive. He has been having some chest pain as well. He reported cough, some yellow phlegm production. No hemoptysis. Chest x-ray showed chronic changes and cardiomegaly without acute pulmonary process. 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 EKG showed sinus bradycardia with incomplete left bundle branch block pattern, and T wave inversion in the lateral leads. Echocardiogram was completed showing EF of greater than 55%, mild aortic valve sclerosis, mild MR, mild TR. Patient is congested, wheezy, and his COPD is active. He was started on nebulized bronchodilators, he did receive a dose of IV Lasix in the ER, and this consultation was initiated. Patient had a recent CT of the abdomen and pelvis in April for investigation of abdominal pain which showed distal colonic diverticulosis without diverticulitis, and enlarging infrarenal abdominal aortic aneurysm measuring up to 6.4 cm currently. Vascular surgery lema s been consulted. The patient is seen today 06/03/2021 in follow-up on the selective care unit. He is currently resting quite comfortably in bed. Awake and alert in no acute distress. He is maintaining O2 saturations in the upper 90s on 4 L/m per nasal cannula. He's been afebrile. Sodium 138. Potassium 3.6. BUN 49. Creatinine 2.45. Glucose 178. He is continued on DuoNeb inhalations, Symbicort, IV Solu- Medrol. Antibiotics in the form of doxycycline. Reevaluated today on 06/04/2021, patient is noticing slight improvement, less cough and less wheezing less shortness of breath. On 4 L nasal cannula with O2 saturation of 96%. WBC count is 16.1 hemoglobin 13.7 electrolytes are normal BUN is 52 creatinine 1.89, improving steadily since admission. Chest x-ray on admission showed chronic changes, no acute process was noted. Patient is being followed by many consultants including cardiology, nephrology, and vascular surgery. Patient was found to have a large abdominal aortic aneurysm. Asymptomatic. Objective - Vital Signs Vital signs: Vital Signs Temp 97.9 F 06/04/21 12:00 Pulse 52 L 06/04/21 12:00 Resp 16 06/04/21 12:00 BP 146/71 06/04/21 12:00 Pulse Ox 95 06/04/21 12:00 Intake & Output 06/03/21 06/04/21 06/04/21 18:59 06:59 18:59 Intake Total 236 480 240 Balance 236 480 240 Weight 105 kg Intake: Oral 236 480 240 Other: Voiding Method Toilet Toilet Toilet Urinal # Voids 3 1 1 - Exam GENERAL EXAM: Alert, pleasant, 60-year-old male patient, on 4 L of oxygen HEAD: Normocephalic/atraumatic. HEENT: PERRLA, EOMI, anicteric, not masses, no JVD. CHEST: No chest wall deformity. Symmetrical expansion. LUNGS: Rhonchi on forced expiratory maneuver noted bilaterally. CVS: Regular rate and rhythm, normal S1 and S2, no gallops, no murmurs, no rubs ABDOMEN: Bees, Soft, nontender. No hepatosplenomegaly, normal bowel sounds, no guarding or rigidity. EXTREMITIES: No clubbing, no edema, no cyanosis, 2+ pulses and upper and lower extremities. MUSCULOSKELETAL: No deformities noted limitation in range of motion. SKIN: No rashes CENTRAL NERVOUS SYSTEM: Alert and oriented 3 focal deficit PSYCHIATRIC: Normal mood affect and normal mental status examination. - Labs CBC & Chem 7: 06/04/21 07:56 06/04/21 07:56 Labs: Abnormal Lab Results - Last 24 Hours (Table) 06/03/21 06/03/21 06/04/21 Range/Units 16:34 20:06 06:19 WBC (3.8-10.6) k/uL Neutrophils # (1.3-7.7) k/uL Lymphocytes # (1.0-4.8) k/uL Carbon Dioxide (22-30) mmol/L BUN (9-20) mg/dL Creatinine (0.66-1.25) mg/dL Glucose (74-99) mg/dL POC Glucose (mg/dL) 273 H 252 H 167 H (75-99) mg/dL 06/04/21 06/04/21 06/04/21 Range/Units 07:56 07:56 07:56 WBC 16.1 H (3.8-10.6) k/uL Neutrophils # 15.2 H (1.3-7.7) k/uL Lymphocytes # 0.6 L (1.0-4.8) k/uL Carbon Dioxide 32 H (22-30) mmol/L BUN 52 H (9-20) mg/dL Creatinine 1.89 H (0.66-1.25) mg/dL Glucose 173 H (74-99) mg/dL POC Glucose (mg/dL) 192 H (75-99) mg/dL 06/04/21 Range/Units 11:21 WBC (3.8-10.6) k/uL Neutrophils # (1.3-7.7) k/uL Lymphocytes # (1.0-4.8) k/uL Carbon Dioxide (22-30) mmol/L BUN (9-20) mg/dL Creatinine (0.66-1.25) mg/dL Glucose (74-99) mg/dL POC Glucose (mg/dL) 226 H (75-99) mg/dL Assessment and Plan Assessment: 1 Acute on chronic hypoxic respiratory failure related to acute exacerbation of COPD, chest x-ray showed chronic changes and cardiomegaly without acute pulmonary process, COVID-19 PCR was negative 2 Troponin elevation, cardiology is on the case, please refer to the consu ltation by cardiology 3 History of coronary artery disease, status post coronary artery bypass gra fting 30 years ago, with subsequent redo CABG, and coronary artery stenting 4 COPD, supposed to wear home oxygen at 2 L, however has not been wearing it because of broken oxygen equipment 5 Chronic and ongoing history of smoking, carries 40-50 years of smoking, 1-2 packs per day 6 Infrarenal abdominal aortic aneurysm measuring 6.4 cm, vascular surgery following 7 Diabetes mellitus type 2 8 Hypertension 9 Hyperlipidemia 10 Chronic kidney disease Recommendation: Continue bronchodilators. Continue oxygen and titrate accordingly Agree with transitioning to oral prednisone. Consider discharge planning in the next 24 hours if cleared by other consultants. Time with Patient: Less than 30
--- NOTE | 2021-06-04 15:06 | P.PN ---
Progress Note - Text Preoperative recommendations/cardiology Patient has an abdominal aortic aneurysm which is infrarenal in location He has known coronary artery disease status post coronary artery bypass grafting He visited with COPD exacerbation His troponins represent demand ischemia with underlying fixed coronary artery disease He denies any anginal like symptoms in the last several weeks His LV function is normal. He has no valvular abnormalities of any significance He has chronic kidney disease We are maximizing his cardiac medications at this time and would recommend proceeding with repair of the abdominal aorta I would recommend that this be done as an inpatient once his COPD exacerbation is under control This patient has not followed up for many years and his follow-up laboratory is poor In addition I'm recommending maximal medical treatment of coronary artery disease to bridge him through the abdominal a fair procedure He'll be followed by cardiology preoperatively or/periprocedural We'll follow Dr. Cavazos as an outpatient subsequent
[2021-06-04 16:50] LABS: Glucose,Whole Blood 254 mg/dL (75-99)
[2021-06-04] MEDS: ATORVASTATIN 80 MG TAB PO SCH (20:06)
[2021-06-04 20:20] LABS: Glucose,Whole Blood 295 mg/dL (75-99)
[2021-06-04] MEDS ORDERED: cloNIDine HCL 0.2 MG TAB PO PRN (20:28)
[2021-06-05 00:34] LABS: Appearance,Urine Clear (Clear); Bilirubin,Urine Negative (Negative); Blood,Urine Negative (Negative); Color,Urine Yellow; Glucose,Urine (UA) 2+ (Negative); Hyaline Casts,Urine 1 /lpf (0-2); Ketones,Urine Negative (Negative); Leukocyte Esterase,Urine Negative (Negative); Nitrite,Urine Negative (Negative); PH, Urine 6.5 (5.0-8.0); Protein,Urine 1+ (Negative); RBC,Urine <1 /hpf (0-5); Urobilinogen,Urine <2.0 mg/dL (<2.0); WBC,Urine <1 /hpf (0-5)
[2021-06-05] MEDS: IPRATROPIUM-ALBUTEROL 3 ML NEB INHALATION SCH ×7 (00:59→23:56)
[2021-06-05 06:24] LABS: Glucose,Whole Blood 131 mg/dL (75-99)
[2021-06-05] MEDS: carvediloL 12.5 MG TAB PO SCH ×2 (06:38→17:22)
[2021-06-05] MEDS: PANTOPRAZOLE 40 MG TABLET PO SCH (06:39)
[2021-06-05] MEDS: SYMBICORT 160-4.5 MCG INHALER INHALATION SCH ×2 (07:49→21:12)
[2021-06-05] MEDS: ASPIRIN 81 MG PO SCH (08:29)
[2021-06-05] MEDS: CLOPIDOGREL 75 MG TAB PO SCH (08:29)
[2021-06-05] MEDS: INSULIN DETEMIR (LEVEMIR) 100 UNIT/ML SYR SQ SCH ×2 (08:29→20:37)
[2021-06-05] MEDS: ISOSORBIDE MONONITRATE ER 30 MG TAB.ER.24H PO SCH (08:29)
[2021-06-05] MEDS: ESCITALOPRAM 20 MG TAB PO SCH (08:29)
[2021-06-05] MEDS: DOXYCYCLINE 100 MG CAP PO SCH ×2 (08:29→20:37)
[2021-06-05] MEDS: allopurinoL 300 MG TAB PO SCH (08:29)
[2021-06-05] MEDS: predniSONE 20 MG TAB PO SCH (08:29)
[2021-06-05 08:30] LABS: Glucose,Whole Blood 91 mg/dL (75-99)
[2021-06-05 10:45] LABS: HCT 37.1 % (39.0-53.0); HGB 12.5 gm/dL (13.0-17.5); MCH 31.3 pg (25.0-35.0); MCHC 33.6 g/dL (31.0-37.0); MCV 93.1 fL (80.0-100.0); Mean Platelet Volume 9.9; Platelet Count 150 k/uL (150-450); RBC 3.98 m/uL (4.30-5.90); WBC 10.1 k/uL (3.8-10.6)
[2021-06-05] MEDS: amLODIPine 5 MG TAB PO SCH ×2 (10:54→20:37)
[2021-06-05 10:57] LABS: Albumin 3.3 g/dL (3.5-5.0); Calcium 9.3 mg/dL (8.4-10.2); Potassium 3.4 mmol/L (3.5-5.1); Total Bilirubin 0.5 mg/dL (0.2-1.3); Total Protein 5.9 g/dL (6.3-8.2)
[2021-06-05 11:42] LABS: Glucose,Whole Blood 89 mg/dL (75-99)
--- NOTE | 2021-06-05 12:00 | PN ---
PROGRESS NOTE Patient is seen for followup for acute kidney injury on top of chronic kidney disease. Patient's serum creatinine has been at about 1.8 to 1.9 mg/dL, which is down from 2.45 at peak. Previous labs in April also showed a creatinine of 2.4. We do not have any other labs available for comparison. Patient was admitted to the hospital with shortness of breath. He has underlying COPD. He is now maintained on oxygen and has been receiving oral antibiotics as well. He states he is feeling better. He has had good urine output. There is no evidence of obstruction noted on a previous CT scan done on 05/18/2021. Patient has been maintained on IV fluids. On examination today, blood pressure is 139/88, heart rate 50 per minute. He is afebrile. EXAMINATION OF THE HEART: S1 and S2. EXAMINATION OF LUNGS: Bilateral breath sounds are heard. Abdomen is soft, non-tender, obese. Examination of lower extremities shows no evidence of edema. SHOE REPAIRMAN EXAM: Grossly intact. Labs show sodium 138, potassium 3.4, chloride 100, CO2 of 32, BUN 48, creatinine 1.9, hemoglobin 12.5 g/dL. ASSESSMENT: 1. Chronic kidney disease, NKF stage IIIB. Baseline creatinine 1.8 to 2 mg/dL. Previous creatinine 2.4 on 05/18/2021. May be a prerenal component which improved with IV hydration. No evidence of obstruction on the previous CT scan done last month. Patient has been voiding well. UA is quite benign. Patient has 1+ protein. 2. Infrarenal large aortic aneurysm about 6.4 cm. 3. Chronic obstructive pulmonary disease with recommendations for home oxygen. 4. Type 2 diabetes. PLAN: Patient will need followup as outpatient. Discontinue IV fluids. MMODL / IJN: [id number] /
--- NOTE | 2021-06-05 12:34 | P.PN ---
Subjective Progress Note Date: 06/05/21 This is a 60-year-old white male patient with previous history of coronary artery disease, and coronary artery bypass grafting over 30 years ago, with subsequent re-do CABG, COPD, diabetes mellitus, chronic and ongoing history of smoking, patient is supposed to wear oxygen at home however he states his oxygen machine has been broken and he has not been wearing it. Patient is a 1-2 pack per day smoker, for the past 40-50 years. His bypass surgeries were done at the [facility] in [place], the first one was done in his 30s. Patient follows with Dr. Plaza for his primary care services, he used to see Dr. Ventura in the remote past for his history of COPD, the severity is unknown to us at this time. Patient came into the emergency department on 06/01/2021 for evaluation of shortness of breath which has been progressive. He has been having some chest pain as well. He reported cough, some yellow phlegm production. No hemoptysis. Chest x-ray showed chronic changes and cardiomegaly without acute pulmonary process. He was tested for COVID-19 and he was found to be negative, his lab work showed CBC within normal limits, normal white count of 6.5, hemoglobin of 14.1, INR 1.0, sodium of 134, the rest of electrolytes were within normal limits, BUN of 34 creatinine of 2.3, lactic acid of 0.7, magnesium of 1.5, LFTs were within normal limits, troponins were 0.039, 0.047, 0.039, pro BNP was 1040. EKG showed sinus bradycardia with incomplete left bundle branch block pattern, and T wave inversion in the lateral leads. Echocardiogram was completed showing EF of greater than 55%, mild aortic valve sclerosis, mild MR, mild TR. Patient is congested, wheezy, and his COPD is active. He was started on nebulized bronchodilators, he did receive a dose of IV Lasix in the ER, and this consultation was initiated. Patient had a recent CT of the abdomen and pelvis in April for investigation of abdominal pain which showed distal colonic diverticulosis without diverticulitis, and enlarging infrarenal abdominal aortic aneurysm measuring up to 6.4 cm currently. Vascular surgery h as been consulted. The patient is seen today 06/03/2021 in follow-up on the selective care unit. H e is currently resting quite comfortably in bed. Awake and alert in no acute distress. He is maintaining O2 saturations in the upper 90s on 4 L/m per nasal cannula. He's been afebrile. Sodium 138. Potassium 3.6. BUN 49. Creatinine 2.45. Glucose 178. He is continued on DuoNeb inhalations, Symbicort, IV Solu- Medrol. Antibiotics in the form of doxycycline. Reevaluated today on 06/04/2021, patient is noticing slight improvement, less cough and less wheezing less shortness of breath. On 4 L nasal cannula with O2 saturation of 96%. WBC count is 16.1 hemoglobin 13.7 electrolytes are normal BUN is 52 creatinine 1.89, improving steadily since admission. Chest x-ray on admission showed chronic changes, no acute process was noted. Patient is being followed by many consultants including cardiology, nephrology, and vascular surgery. Patient was found to have a large abdominal aortic aneurysm. Asymptomatic. The patient is seen today 06/05/2021 in follow-up on the selective care unit. He is currently sitting up in bed. Awake and alert in no acute distress. He is breathing easier today compared to yesterday. Maintaining O2 saturations in the mid to upper 90s on 4 L/m per nasal cannula. He is afebrile. Bradycardic. Blood pressure stable. White count 10.1. Hemoglobin 12.5. Platelet count 150,000. Sodium 138. Potassium 3.4. Bicarb 32. BUN 48. Creatinine 1.91. He remains on Symbicort, albuterol, prednisone. Antibiotics in the form of doxycycline. Objective - Vital Signs Vital signs: Vital Signs Temp 97.8 F 06/05/21 08:00 Pulse 44 L 06/05/21 11:51 Resp 17 06/05/21 11:51 BP 156/83 06/05/21 11:51 Pulse Ox 98 06/05/21 11:51 Intake & Output 06/04/21 06/05/21 06/05/21 18:59 06:59 18:59 Intake Total 360 Output Total 250 Balance 360 -250 Weight 105.3 kg Intake: Oral 360 Output: Urine 250 Other: Voiding Method Toilet Toilet Urinal Urinal # Voids 1 1 - Exam GENERAL EXAM: Alert, pleasant, 60-year-old male patient, on 4 L of oxygen with pulse ox 98%, comfortable in no apparent distress. HEAD: Normocephalic/atraumatic. EYES: Normal reaction of pupils, equal size. Conjunctiva pink, sclera white. NOSE: Clear with pink turbinates. THROAT: No erythema or exudates. NECK: No masses, no JVD, no thyroid enlargement, no adenopathy. CHEST: No chest wall deformity. Symmetrical expansion. LUNGS: Equal air entry with faint end expiratory wheezing and few scattered rhonchi CVS: Regular rate and rhythm, normal S1 and S2, no gallops, no murmurs, no rubs ABDOMEN: Soft, nontender. No hepatosplenomegaly, normal bowel sounds, no guarding or rigidity. EXTREMITIES: No clubbing, no edema, no cyanosis, 2+ pulses and upper and lower extremities. MUSCULOSKELETAL: Muscle strength and tone normal. SPINE: No scoliosis or deformity SKIN: No rashes CENTRAL NERVOUS SYSTEM: Alert and oriented -3. No focal deficits, tone is normal in all 4 extremities. PSYCHIATRIC: Alert and oriented -3. Appropriate affect. Intact judgment and insight. - Labs CBC & Chem 7: 06/05/21 10:25 06/05/21 10:25 Labs: Abnormal Lab Results - Last 24 Hours (Table) 06/04/21 06/04/21 06/04/21 Range/Units 16:48 20:19 23:29 RBC (4.30-5.90) m/uL Hgb (13.0-17.5) gm/dL Hct (39.0-53.0) % Potassium (3.5-5.1) mmol/L Carbon Dioxide (22-30) mmol/L BUN (9-20) mg/dL Creatinine (0.66-1.25) mg/dL POC Glucose (mg/dL) 254 H 295 H (75-99) mg/dL Total Protein (6.3-8.2) g/dL Albumin (3.5-5.0) g/dL Urine Protein 1+ H (Negative) Urine Glucose (UA) 2+ H (Negative) 06/05/21 06/05/21 06/05/21 Range/Units 06:10 10:25 10:25 RBC 3.98 L (4.30-5.90) m/uL Hgb 12.5 L (13.0-17.5) gm/dL Hct 37.1 L (39.0-53.0) % Potassium 3.4 L (3.5-5.1) mmol/L Carbon Dioxide 32 H (22-30) mmol/L BUN 48 H (9-20) mg/dL Creatinine 1.91 H (0.66-1.25) mg/dL POC Glucose (mg/dL) 131 H (75-99) mg/dL Total Protein 5.9 L (6.3-8.2) g/dL Albumin 3.3 L (3.5-5.0) g/dL Urine Protein (Negative) Urine Glucose (UA) (Negative) Assessment and Plan Assessment: 1 Acute on chronic hypoxic respiratory failure related to acute exacerbation of COPD, chest x-ray showed chronic changes and cardiomegaly without acute pulmonary process, COVID-19 PCR was negative 2 Troponin elevation, cardiology is on the case, please refer to the consultation by cardiology 3 History of coronary artery disease, status post coronary artery bypass grafting 30 years ago, with subsequent redo CABG, and coronary artery stenting 4 COPD, supposed to wear home oxygen at 2 L, however has not been wearing it because of broken oxygen equipment 5 Chronic and ongoing history of smoking, carries 40-50 years of smoking, 1-2 packs per day 6 Infrarenal abdominal aortic aneurysm measuring 6.4 cm, vascular surgery following 7 Diabetes mellitus type 2 8 Hypertension 9 Hyperlipidemia 10 Acute on chronic kidney disease my current creatinine 1.91, GFR 37 Plan: The patient was seen and evaluated by Dr. Igor Carrillo from the pulmonary standpoint Continue with the current treatment plan Titrate the FiO2 as tolerated Increase activity as tolerated May be having AAA repair this admission We will continue to follow I, the cosigning physician, performed a history & physical examination of the patient. Lungs sounds with bilateral wheezing, few scattered rhonchi, diminished. Maintaining good O2 saturations in the 90s on 4 L/m per nasal cannula. I discussed the assessment and plan of care with my nurse practitioner, Micki Garcia. I attest to the above note as dictated by her.
--- NOTE | 2021-06-05 13:10 | P.PN ---
Subjective This is a 60-year-old male with a past medical history significant for COPD, coronary artery disease with previous CABG performed at [facility], hypertension, hyperlipidemia, and nicotine dependence. 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 We have been asked to see the patient in consultation for chest pain. Patient came to the hospital secondary to SOB, he had intermittent upper abdominal pain and some chest discomfort over the past [address] abdomen and pelvis enlarging infrarenal AAA up to 6.4 cm currently. Additional focal a neurysm distal right common iliac artery up to 4 cm. Advise surgical and/or endovascular referral. Echocardiogram completed revealed ejection fraction greater than 55%, mild MR, mild TR. Patient examined this morning at the bedside. Patient denies chest pain or pressure. He reports his shortness of breath is improving. Blood pressure is uncontrolled. Blood pressure 156/83, heart rate 44, afebrile, maintaining oxygen saturation on room air. Patient is currently maintained on aspirin 81 mg daily, atorvastatin 80 mg nightly, Plavix 75 mg daily, Imdur 30 mg daily, IV fluids, carvedilol 12.5mg BID. Laboratory data reviewed, WBC 10.1, hemoglobin 12.5, platelets 150, sodium 138, potassium 2.4, BUN 48, serum creatinine 1.9, PHYSICAL EXAM: VITAL SIGNS: Reviewed. GENERAL: Well-developed in no acute distress. NECK: Supple. No JVD or thyromegaly LUNGS: Respirations even and unlabored. Lungs diminished throughout. HEART: Regular rate and rhythm. S1 and S2 heard. EXTREMITIES: Normal range of motion. No clubbing or cyanosis. Peripheral pulses intact. No lower extremity edema ASSESSMENT: Acute exacerbation of COPD- improving Abnormal troponin, not suggestive of acute coronary syndrome Infrarenal abdominal aortic aneurysm measuring 6.4 cm History of coronary artery disease with previous CABG Hypertension Hyperlipidemia Diabetes Nicotine dependence Acute Kidney Injury (unknown baseline) PLAN: -Discontinue clonidine -Start amlodipine 5 mg twice a day -Continue aspirin and statin, carvedilol, Plavix -Troponin was negative -Nephrology following for acute kidney injury -Dr. Cavazos recommends inpatient repair of AAA. Patient is at high risk due to known CAD with CABG and COPD. From cardiology perspective, we recommend inpatient repair of patient's AAA and the benefit outweighs the risk at this time. When patient's COPD exacerbation improves, which will most likely be early next week and he is hemodynamically stable may proceed with inpatient repair of AAA. Further recommendations pending patient course Nurse practitioner note has been reviewed by physician. Signing provider agrees with the documented findings, assessment, and plan of care. Objective - Vital Signs Vital signs: Vital Signs Temp 97.8 F 06/05/21 08:00 Pulse 44 L 06/05/21 11:51 Resp 17 06/05/21 11:51 BP 156/83 06/05/21 11:51 Pulse Ox 98 06/05/21 11:51 Intake & Output 06/04/21 06/05/21 06/05/21 18:59 06:59 18:59 Intake Total 360 Output Total 250 Balance 360 -250 Weight 105.3 kg Intake: Oral 360 Output: Urine 250 Other: Voiding Method Toilet Toilet Urinal Urinal # Voids 1 1 - Labs CBC & Chem 7: 06/05/21 10:25 06/05/21 10:25 Labs: Abnormal Lab Results - Last 24 Hours (Table) 06/04/21 06/04/21 06/04/21 Range/Units 16:48 20:19 23:29 RBC (4.30-5.90) m/uL Hgb (13.0-17.5) gm/dL Hct (39.0-53.0) % Potassium (3.5-5.1) mmol/L Carbon Dioxide (22-30) mmol/L BUN (9-20) mg/dL Creatinine (0.66-1.25) mg/dL POC Glucose (mg/dL) 254 H 295 H (75-99) mg/dL Total Protein (6.3-8.2) g/dL Albumin (3.5-5.0) g/dL Urine Protein 1+ H (Negative) Urine Glucose (UA) 2+ H (Negative) 06/05/21 06/05/21 06/05/21 Range/Units 06:10 10:25 10:25 RBC 3.98 L (4.30-5.90) m/uL Hgb 12.5 L (13.0-17.5) gm/dL Hct 37.1 L (39.0-53.0) % Potassium 3.4 L (3.5-5.1) mmol/L Carbon Dioxide 32 H (22-30) mmol/L BUN 48 H (9-20) mg/dL Creatinine 1.91 H (0.66-1.25) mg/dL POC Glucose (mg/dL) 131 H (75-99) mg/dL Total Protein 5.9 L (6.3-8.2) g/dL Albumin 3.3 L (3.5-5.0) g/dL Urine Protein (Negative) Urine Glucose (UA) (Negative)
--- NOTE | 2021-06-05 13:15 | P.PN ---
Subjective Progress Note Date: 06/05/21 Patient was seen and examined lying in bed. No acute changes through the night. He has been afebrile. He denies any chest pain or abdominal pain. He remains on 4 L nasal cannula. He states his breathing has been proving. Objective - Vital Signs Vital signs: Vital Signs Temp 97.8 F 06/05/21 08:00 Pulse 50 L 06/05/21 08:00 Resp 17 06/05/21 08:00 BP 139/88 06/05/21 08:00 Pulse Ox 95 06/05/21 08:00 Intake & Output 06/04/21 06/05/21 06/05/21 18:59 06:59 18:59 Intake Total 360 Output Total 250 Balance 360 -250 Weight 105.3 kg Intake: Oral 360 Output: Urine 250 Other: Voiding Method Toilet Toilet Urinal Urinal # Voids 1 1 - Exam General appearance: The patient is alert, oriented, in no acute distress. HET: Head is normocephalic and atraumatic. Pupils are equal and reactive. Oropharynx is clear without lesions. Neck: Supple without lymphadenopathy. Trachea midline. Heart: S1 S2. Regular rate and rhythm. Lungs: Wheezing, rhonchi. Abdomen: Soft, nontender, nondistended. Extremities: Normal skin color and turgor. No cyanosis, rash, ulceration, clubbing, or edema. Palpable radial pulses bilaterally. Neurological: No focal deficits. Strength and sensation are grossly intact. - Labs CBC & Chem 7: 06/05/21 10:25 06/05/21 10:25 Labs: Abnormal Lab Results - Last 24 Hours (Table) 06/04/21 06/04/21 06/04/21 Range/Units 11:21 16:48 20:19 POC Glucose (mg/dL) 226 H 254 H 295 H (75-99) mg/dL Urine Protein (Negative) Urine Glucose (UA) (Negative) 06/04/21 06/05/21 Range/Units 23:29 06:10 POC Glucose (mg/dL) 131 H (75-99) mg/dL Urine Protein 1+ H (Negative) Urine Glucose (UA) 2+ H (Negative) Assessment and Plan Assessment: 1. Infrarenal Abdominal aortic aneurysm measuring 6.4 cm 2. Chronic COPD with exacerbation 3. History of coronary artery disease, status post CABG, cardiac stents 4. Elevated troponins 5. Diabetes mellitus, hypertension, hyperlipidemia, chronic kidney disease 6. Acute kidney injury Plan: 1. Continue symptomatic and supportive care 2. Advised smoking cessation 3. Keep blood pressure controlled 4. Continue medical management per primary medicine team 5. Will need cardiac clearance prior to any vascular surgical procedure 6. Recommend CTA abdomen and pelvis once kidney function improves 7. Consult to nephrology 8. There is no plans for any vascular surgical intervention during this hospitalization. Plan on further outpatient workup with CT angiogram once kidney function improves. Scheduling of AAA repair will be done outpatient. Thank you for this consultation, we will be on standby if further needed. Otherwise patient to follow-up with us on an outpatient basis within the next week. The impression and plan of care has been dictated as directed. Dr. Tam I performed a history and examination of this patient, discussed the same with the dictator. I agree with the dictator's note ,documented as a scribe. Any additional findings or plans will be noted.
[2021-06-05 16:41] LABS: Glucose,Whole Blood 202 mg/dL (75-99)
--- NOTE | 2021-06-05 17:09 | P.PN ---
Subjective Patient is doing fairly well today. No acute events overnight. Objective - Vital Signs Vital signs: Vital Signs Temp 98 F 06/05/21 16:00 Pulse 51 L 06/05/21 16:00 Resp 18 06/05/21 16:00 BP 149/80 06/05/21 16:00 Pulse Ox 96 06/05/21 16:00 Intake & Output 06/04/21 06/05/21 06/05/21 18:59 06:59 18:59 Intake Total 360 140 Output Total 250 Balance 360 -250 140 Weight 105.3 kg Intake: Oral 360 140 Output: Urine 250 Other: Voiding Method Toilet Toilet Urinal Urinal # Voids 1 1 1 - Exam General: The patient is awake and alert, in no distress Eye: there is normal conjunctiva bilaterally. Neck: The neck is supple, there is no JVD. Cardiovascular: Normal S1-S2, no S3-S4, no murmurs. Respiratory: Lungs with mild end expiratory wheezing Gastrointestinal: Abdomen is soft, nontender Musculoskeletal: There is no pedal edema. Neurological:. Speech is normal. Skin: Skin is warm and dry - Labs CBC & Chem 7: 06/05/21 10:25 06/05/21 10:25 Labs: Abnormal Lab Results - Last 24 Hours (Table) 06/04/21 06/04/21 06/05/21 Range/Units 20:19 23:29 06:10 RBC (4.30-5.90) m/uL Hgb (13.0-17.5) gm/dL Hct (39.0-53.0) % Potassium (3.5-5.1) mmol/L Carbon Dioxide (22-30) mmol/L BUN (9-20) mg/dL Creatinine (0.66-1.25) mg/dL POC Glucose (mg/dL) 295 H 131 H (75-99) mg/dL Total Protein (6.3-8.2) g/dL Albumin (3.5-5.0) g/dL Urine Protein 1+ H (Negative) Urine Glucose (UA) 2+ H (Negative) 06/05/21 06/05/21 06/05/21 Range/Units 10: 10: 16:40 RBC 3.98 L (4.30-5.90) m/uL Hgb 12.5 L (13.0-17.5) gm/dL Hct 37.1 L (39.0-53.0) % Potassium 3.4 L (3.5-5.1) mmol/L Carbon Dioxide 32 H (22-30) mmol/L BUN 48 H (9-20) mg/dL Creatinine 1.91 H (0.66-1.25) mg/dL POC Glucose (mg/dL) 202 H (75-99) mg/dL Total Protein 5.9 L (6.3-8.2) g/dL Albumin 3.3 L (3.5-5.0) g/dL Urine Protein (Negative) Urine Glucose (UA) (Negative) Assessment and Plan Assessment: This is a 60-year-old male with very complex past medical history noted below Presented to the emergency room with acute on chronic dyspnea and was found to be hypoxic. Patient is to have oxygen at home but ran out of it approximately a year ago did not see any doctors. He was evaluated in the ER and admitted to the hospital for further management of his medical problems noted below. 1. Acute on chronic hypoxic respiratory failure probably secondary to underlying COPD. O2 sats greater than 90% on 2 L of oxygen via nasal cannula. 2. Troponin elevation, most likely non-thrombotic troponin leak secondary to demand/supply mismatch and hypoxia. Patient was seen and evaluated by ca rdiology. Echocardiogram showed preserved ejection fraction with no significant valvular or wall motion abnormalities. 3. Acute COPD exacerbation, started on bronchodilators and IV Solu-Medrol. Pul monary consulted for further evaluation. 4. Infrarenal AAA measuring 6.4 cm noted on echo. Seen and evaluated by vascular surgery. Follow-up outpatient. Tobacco cessation encouraged. 5. Sinus bradycardia, clonidine discontinued by cardiology. Patient was started on Norvasc 6. Chronic medical problems, coronary artery disease with previous CABG, station IIIB chronic kidney disease with baseline creatinine around 2.2, type 2 diabetes, essential hypertension, hyperlipidemia Today, I reviewed his medication list and lab work results. Creatinine at baseline around 2. Preferably he should not get any IV contrast if possible. Home dose of Cardizem and clonidine discontinued by cardiology. Patient was started on Coreg and Norvasc Cardiology requesting AAA repair during this admission which is currently discussed with vascular surgery awaiting further recommendation.
[2021-06-05 20:10] LABS: Glucose,Whole Blood 243 mg/dL (75-99)
[2021-06-05] MEDS: ATORVASTATIN 80 MG TAB PO SCH (20:37)
[2021-06-06] MEDS: IPRATROPIUM-ALBUTEROL 3 ML NEB INHALATION SCH ×6 (05:02→23:51)
[2021-06-06] MEDS: carvediloL 12.5 MG TAB PO SCH ×2 (06:05→16:52)
[2021-06-06] MEDS: PANTOPRAZOLE 40 MG TABLET PO SCH (06:05)
[2021-06-06 06:07] LABS: Glucose,Whole Blood 97 mg/dL (75-99)
[2021-06-06] MEDS: SYMBICORT 160-4.5 MCG INHALER INHALATION SCH ×2 (08:00→21:27)
--- NOTE | 2021-06-06 08:58 | P.PN ---
Subjective Patient is seen in follow for acute kidney injury and chronic any disease. Good urine output. No vomiting or diarrhea. Dyspnea improving. On nasal cannula. Vital signs are stable. General: The patient appeared well nourished and normally developed. HEENT: Head exam is unremarkable. On nasal cannula. LUNGS: Breath sounds decreased. Rhonchi present. HEART: Rate and Rhythm are regular. ABDOMEN: Soft, no distention. EXTREMITITES: No edema. Objective - Vital Signs Vital signs: Vital Signs Temp 97.8 F 06/05/21 20:00 Pulse 55 L 06/06/21 04:00 Resp 20 06/06/21 04:00 BP 159/98 06/06/21 04:00 Pulse Ox 97 06/06/21 04:00 Intake & Output 06/05/21 06/06/21 06/06/21 18:59 06:59 18:59 Intake Total 390 180 Balance 390 180 Weight 104.1 kg Intake: Oral 390 180 Other: # Voids 1 1 1 - Labs CBC & Chem 7: 06/05/21 10:25 06/05/21 10:25 Labs: Abnormal Lab Results - Last 24 Hours (Table) 06/05/21 06/05/21 06/05/21 Range/Units 10:25 10:25 16:40 RBC 3.98 L (4.30-5.90) m/uL Hgb 12.5 L (13.0-17.5) gm/dL Hct 37.1 L (39.0-53.0) % Potassium 3.4 L (3.5-5.1) mmol/L Carbon Dioxide 32 H (22-30) mmol/L BUN 48 H (9-20) mg/dL Creatinine 1.91 H (0.66-1.25) mg/dL POC Glucose (mg/dL) 202 H (75-99) mg/dL Total Protein 5.9 L (6.3-8.2) g/dL Albumin 3.3 L (3.5-5.0) g/dL 06/05/21 Range/Units 20:08 RBC (4.30-5.90) m/uL Hgb (13.0-17.5) gm/dL Hct (39.0-53.0) % Potassium (3.5-5.1) mmol/L Carbon Dioxide (22-30) mmol/L BUN (9-20) mg/dL Creatinine (0.66-1.25) mg/dL POC Glucose (mg/dL) 243 H (75-99) mg/dL Total Protein (6.3-8.2) g/dL Albumin (3.5-5.0) g/dL Assessment and Plan Plan: Assessment: 1. Chronic kidney disease stage IIIB with baseline creatinine in the range of 1.8-2. GFR stable. Etiologies nephrosclerosis and component of diabetic kidney disease as he does have proteinuria on UA. Further workup outpatient. 2. Infrarenal aortic aneurysm. Evaluated by vascular surgery. 3. COPD. Home oxygen dependent. 4. Diabetes mellitus. 5. Hypertension with chronic kidney disease. Exacerbated by steroids. 6. History of coronary artery disease. Plan: Encourage oral intake. Avoid nephrotoxins. Follow-up outpatient in about 1 week post discharge.
[2021-06-06 09:17] VITALS: RESP 18
[2021-06-06] MEDS: INSULIN DETEMIR (LEVEMIR) 100 UNIT/ML SYR SQ SCH ×2 (09:18→22:23)
[2021-06-06] MEDS: amLODIPine 5 MG TAB PO SCH ×2 (09:19→22:23)
[2021-06-06] MEDS: allopurinoL 300 MG TAB PO SCH (09:19)
[2021-06-06] MEDS: CLOPIDOGREL 75 MG TAB PO SCH (09:19)
[2021-06-06] MEDS: DOXYCYCLINE 100 MG CAP PO SCH ×2 (09:19→23:44)
[2021-06-06] MEDS: predniSONE 20 MG TAB PO SCH (09:19)
[2021-06-06] MEDS: ASPIRIN 81 MG PO SCH (09:19)
[2021-06-06] MEDS: ESCITALOPRAM 20 MG TAB PO SCH (09:19)
[2021-06-06 09:59] LABS: Calcium 8.8 mg/dL (8.4-10.2); Potassium 3.2 mmol/L (3.5-5.1)
--- NOTE | 2021-06-06 10:47 | P.PN ---
Subjective Patient is doing fairly well today. No acute events overnight. Objective - Vital Signs Vital signs: Vital Signs Temp 98 F 06/06/21 09:16 Pulse 50 L 06/06/21 09:16 Resp 18 06/06/21 09:16 BP 128/73 06/06/21 09:16 Pulse Ox 98 06/06/21 09:16 Intake & Output 06/05/21 06/06/21 06/06/21 18:59 06:59 18:59 Intake Total 390 180 Balance 390 180 Weight 104.1 kg Intake: Oral 390 180 Other: Voiding Method Toilet Urinal # Voids 1 1 1 - Exam General: The patient is awake and alert, in no distress Eye: there is normal conjunctiva bilaterally. Neck: The neck is supple, there is no JVD. Cardiovascular: Normal S1-S2, no S3-S4, no murmurs. Respiratory: Lungs with mild end expiratory wheezing Gastrointestinal: Abdomen is soft, nontender Musculoskeletal: There is no pedal edema. Neurological:. Speech is normal. Skin: Skin is warm and dry - Labs CBC & Chem 7: 06/05/21 10:25 06/06/21 09:16 Labs: Abnormal Lab Results - Last 24 Hours (Table) 06/05/21 06/05/21 06/05/21 Range/Units 10:25 16:40 20:08 Potassium 3.4 L (3.5-5.1) mmol/L Carbon Dioxide 32 H (22-30) mmol/L BUN 48 H (9-20) mg/dL Creatinine 1.91 H (0.66-1.25) mg/dL Glucose (74-99) mg/dL POC Glucose (mg/dL) 202 H 243 H (75-99) mg/dL Total Protein 5.9 L (6.3-8.2) g/dL Albumin 3.3 L (3.5-5.0) g/dL 06/06/21 Range/Units 09:16 Potassium 3.2 L (3.5-5.1) mmol/L Carbon Dioxide 37 H (22-30) mmol/L BUN 43 H (9-20) mg/dL Creatinine 1.62 H (0.66-1.25) mg/dL Glucose 111 H (74-99) mg/dL POC Glucose (mg/dL) (75-99) mg/dL Total Protein (6.3-8.2) g/dL Albumin (3.5-5.0) g/dL Assessment and Plan Assessment: This is a 60-year-old male with very complex past medical history noted below Presented to the emergency room with acute on chronic dyspnea and was found to b e hypoxic. Patient is to have oxygen at home but ran out of it approximately a year ago did not see any doctors. He was evaluated in the ER and admitted to the hospital for further management of his medical problems noted below. 1. Acute on chronic hypoxic respiratory failure probably secondary to underlying COPD. O2 sats greater than 90% on 2 L of oxygen via nasal cannula. 2. Troponin elevation, most likely non-thrombotic troponin leak secondary to demand/supply mismatch and hypoxia. Patient was seen and evaluated by cardiology. Echocardiogram showed preserved ejection fraction with no significant valvular or wall motion abnormalities. 3. Acute COPD exacerbation, started on bronchodilators and IV Solu-Medrol. Pulmonary consulted for further evaluation. 4. Infrarenal AAA measuring 6.4 cm noted on echo. Seen and evaluated by vascular surgery. Follow-up outpatient. Tobacco cessation encouraged. 5. Sinus bradycardia, clonidine discontinued by cardiology. Patient was started on Norvasc 6. Chronic medical problems, coronary artery disease with previous CABG, station IIIB chronic kidney disease with baseline creatinine around 2.2, type 2 diabetes, essential hypertension, hyperlipidemia Today, I reviewed his medication list and lab work results. Creatinine at baseline. Preferably he should not get any IV contrast if possible. Home dose of Cardizem and clonidine discontinued by cardiology. Patient was started on Coreg and Norvasc Cardiology requesting AAA repair during this admission which is currently discussed with vascular surgery awaiting further recommendation.
--- NOTE | 2021-06-06 11:51 | P.PN ---
Subjective Progress Note Date: 06/06/21 This is a 60-year-old white male patient with previous history of coronary artery disease, and coronary artery bypass grafting over 30 years ago, with subsequent re-do CABG, COPD, diabetes mellitus, chronic and ongoing history of smoking, patient is supposed to wear oxygen at home however he states his oxygen machine has been broken and he has not been wearing it. Patient is a 1-2 pack per day smoker, for the past 40-50 years. His bypass surgeries were done at the [facility] in [place], the first one was done in his 30s. Patient follows with Dr. Plaza for his primary care services, he used to see Dr. Ventura in the remote past for his history of COPD, the severity is unknown to us at this time. Patient came into the emergency department on 06/01/2021 for evaluation of shortness of breath which has been progressive. He has been having some chest pain as well. He reported cough, some yellow phlegm production. No hemoptysis. Chest x-ray showed chronic changes and cardiomegaly without acute pulmonary process. He was tested for COVID-19 and he was found to be negative, his lab work showed CBC within normal limits, normal white count of 6.5, hemoglobin of 14.1, INR 1.0, sodium of 134, the rest of electrolytes were within normal limits, BUN of 34 creatinine of 2.3, lactic acid of 0.7, magnesium of 1.5, LFTs were within normal limits, troponins were 0.039, 0.047, 0.039, pro BNP was 1040. EKG showed sinus bradycardia with incomplete left bundle branch block pattern, and T wave inversion in the lateral leads. Echocardiogram was completed showing EF of greater than 55%, mild aortic valve sclerosis, mild MR, mild TR. Patient is congested, wheezy, and his COPD is active. He was started on nebulized bronchodilators, he did receive a dose of IV Lasix in the ER, and this consultation was initiated. Patient had a recent CT of the abdomen and pelvis in April for investigation of abdominal pain which showed distal colonic diverticulosis without diverticulitis, and enlarging infrarenal abdominal aortic aneurysm measuring up to 6.4 cm currently. Vascular surgery h as been consulted. The patient is seen today 06/03/2021 in follow-up on the selective care unit. H e is currently resting quite comfortably in bed. Awake and alert in no acute distress. He is maintaining O2 saturations in the upper 90s on 4 L/m per nasal cannula. He's been afebrile. Sodium 138. Potassium 3.6. BUN 49. Creatinine 2.45. Glucose 178. He is continued on DuoNeb inhalations, Symbicort, IV Solu- Medrol. Antibiotics in the form of doxycycline. Reevaluated today on 06/04/2021, patient is noticing slight improvement, less cough and less wheezing less shortness of breath. On 4 L nasal cannula with O2 saturation of 96%. WBC count is 16.1 hemoglobin 13.7 electrolytes are normal BUN is 52 creatinine 1.89, improving steadily since admission. Chest x-ray on admission showed chronic changes, no acute process was noted. Patient is being followed by many consultants including cardiology, nephrology, and vascular surgery. Patient was found to have a large abdominal aortic aneurysm. Asymptomatic. The patient is seen today 06/05/2021 in follow-up on the selective care unit. He is currently sitting up in bed. Awake and alert in no acute distress. He is breathing easier today compared to yesterday. Maintaining O2 saturations in the mid to upper 90s on 4 L/m per nasal cannula. He is afebrile. Bradycardic. Blood pressure stable. White count 10.1. Hemoglobin 12.5. Platelet count 150,000. Sodium 138. Potassium 3.4. Bicarb 32. BUN 48. Creatinine 1.91. He remains on Symbicort, albuterol, prednisone. Antibiotics in the form of doxycycline. The patient is seen today May 2021 in follow-up on the selective care unit. He is currently sitting up in bed. Awake and alert in no acute distress. Maintaining O2 saturations in the 90s on 4 L/m per nasal cannula. He denies any worsening shortness of breath, cough or congestion. Sodium 141 potassium 3.. Creatinine 1.6. Pneumonia. He remains on DuoNeb inhalations, Symbicort, 1 prednisone. Antibiotics doxycycline. Objective - Vital Signs Vital signs: Vital Signs Temp 98 F 06/06/21 09:16 Pulse 62 06/06/21 11:25 Resp 18 06/06/21 09:16 BP 128/73 06/06/21 09:16 Pulse Ox 98 06/06/21 09:16 Intake & Output 06/05/21 06/06/21 06/06/21 18:59 06:59 18:59 Intake Total 390 180 Balance 390 180 Weight 104.1 kg Intake: Oral 390 180 Other: Voiding Method Toilet Urinal # Voids 1 1 1 - Exam GENERAL EXAM: Alert, pleasant, 60-year-old male patient, on 4 L of oxygen with pulse ox 98%, comfortable in no apparent distress. HEAD: Normocephalic/atraumatic. EYES: Normal reaction of pupils, equal size. Conjunctiva pink, sclera white. NOSE: Clear with pink turbinates. THROAT: No erythema or exudates. NECK: No masses, no JVD, no thyroid enlargement, no adenopathy. CHEST: No chest wall deformity. Symmetrical expansion. LUNGS: Equal air entry with faint end expiratory wheezing and few scattered rhonchi CVS: Regular rate and rhythm, normal S1 and S2, no gallops, no murmurs, no rubs ABDOMEN: Soft, nontender. No hepatosplenomegaly, normal bowel sounds, no guarding or rigidity. EXTREMITIES: No clubbing, no edema, no cyanosis, 2+ pulses and upper and lower extremities. MUSCULOSKELETAL: Muscle strength and tone normal. SPINE: No scoliosis or deformity SKIN: No rashes CENTRAL NERVOUS SYSTEM: Alert and oriented -3. No focal deficits, tone is normal in all 4 extremities. PSYCHIATRIC: Alert and oriented -3. Appropriate affect. Intact judgment and insight. - Labs CBC & Chem 7: 06/05/21 10:25 06/06/21 09:16 Labs: Abnormal Lab Results - Last 24 Hours (Table) 06/05/21 06/05/21 06/06/21 Range/Units 16:40 20:08 09:16 Potassium 3.2 L (3.5-5.1) mmol/L Carbon Dioxide 37 H (22-30) mmol/L BUN 43 H (9-20) mg/dL Creatinine 1.62 H (0.66-1.25) mg/dL Glucose 111 H (74-99) mg/dL POC Glucose (mg/dL) 202 H 243 H (75-99) mg/dL Assessment and Plan Assessment: 1 Acute on chronic hypoxic respiratory failure related to acute exacerbation of COPD, chest x-ray showed chronic changes and cardiomegaly without acute pulmonary process, COVID-19 PCR was negative 2 Troponin elevation, cardiology is on the case, please refer to the consultation by cardiology 3 History of coronary artery disease, status post coronary artery bypass grafting 30 years ago, with subsequent redo CABG, and coronary artery stenting 4 COPD, supposed to wear home oxygen at 2 L, however has not been wearing it because of broken oxygen equipment 5 Chronic and ongoing history of smoking, carries 40-50 years of smoking, 1-2 packs per day 6 Infrarenal abdominal aortic aneurysm measuring 6.4 cm, vascular surgery following 7 Diabetes mellitus type 2 8 Hypertension 9 Hyperlipidemia 10 Acute on chronic kidney disease my current creatinine 1.91, GFR 37 Plan: The patient was seen and evaluated by Dr. Igor Carrillo from the pulmonary standpoint He is cleared for either discharge or aneurysm repair surgery this admission Cardiology and vascular services consulting Continue with the current treatment plan Titrate the FiO2 as tolerated We will continue to follow I, the cosigning physician, performed a history & physical examination of the patient. Lungs sounds with bilateral wheezing, few scattered rhonchi, diminished. Maintaining good O2 saturations in the 90s on 4 L/m per nasal cannula. I discussed the assessment and plan of care with my nurse practitioner , Micki Garcia. I attest to the above note as dictated by her.
[2021-06-06 11:58] LABS: Glucose,Whole Blood 99 mg/dL (75-99)
[2021-06-06] MEDS: POTASSIUM CHLORIDE ER 20 MEQ TAB.ER PO SCH ×2 (12:22→13:50)
[2021-06-06] MEDS: SODIUM CHLORIDE 0.9% 1,000 ML IV SCH ×2 (12:40→22:23)
--- NOTE | 2021-06-06 12:53 | P.PN ---
Subjective Progress Note Date: 06/06/21 Patient seen and examined. Overall feeling better. No complaints Objective - Vital Signs Vital signs: Vital Signs Temp 98 F 06/06/21 09:16 Pulse 47 L 06/06/21 12:10 Resp 18 06/06/21 12:10 BP 152/79 06/06/21 12:10 Pulse Ox 95 06/06/21 12:10 Intake & Output 06/05/21 06/06/21 06/06/21 18:59 06:59 18:59 Intake Total 390 180 Balance 390 180 Weight 104.1 kg Intake: Oral 390 180 Other: Voiding Method Toilet Urinal # Voids 1 1 1 - Exam Gen. a pleasant and cooperative male in no acute distress. On oxygen. Sitting at the bedside. HEENT is normocephalic, atraumatic, extraocular motion intact. Heart appears regular at this time. Lungs diminished but clear. Abdomen is soft, nontender nondistended. Extremity show no clubbing, cyanosis. Minimal edema. - Labs CBC & Chem 7: 06/05/21 10:25 06/06/21 09:16 Labs: Abnormal Lab Results - Last 24 Hours (Table) 06/05/21 06/05/21 06/06/21 Range/Units 16:40 20:08 09:16 Potassium 3.2 L (3.5-5.1) mmol/L Carbon Dioxide 37 H (22-30) mmol/L BUN 43 H (9-20) mg/dL Creatinine 1.62 H (0.66-1.25) mg/dL Glucose 111 H (74-99) mg/dL POC Glucose (mg/dL) 202 H 243 H (75-99) mg/dL Assessment and Plan Assessment: 6.4 cm abdominal aortic aneurysm on noncontrasted CT Right common iliac artery aneurysm COPD exacerbation, on oxygen Plan: Patient has had improvements as far as his laboratory values as well as his creatinine. This time long discussion had with the juice scaleman who believes he should have further workup and be able to tolerate fluid bolus to help ability to perform CT angiogram. We will fluids per cardiology and order CTangiogram of the abdomen and pelvis.Workupa nd evaluation for surgical planning. Likely will be outpatient due to complexity of aneurysmal disease,asymptomatic at this time.
--- NOTE | 2021-06-06 14:51 | P.PN ---
Subjective Progress Note Date: 06/06/21 The patient is a 60-year-old male with past medical history of COPD, coronary artery disease status post CABG, hypertension, dyslipidemia, and nicotine dependence, who presented to the hospital with new onset of chest discomfort. He was also experiencing shortness of breath and intermittent abdominal pain. CT of the abdomen and pelvis showed enlarging infrarenal AAA up to 6.4 cm along with a focal aneurysm distal to the right common iliac artery up to 4 cm. Vascular surgery was consulted and he is pending intervention. Unfortunately during his hospitalization he is also being treated for COPD exacerbation as well as an acute kidney injury. He states he's been feeling well over the last 24 hours. He states he is no longer short of breath and denies any chest pain or abdominal discomfort. He has been up ambulating the halls without issue. GENERAL: Well-appearing, well-nourished and in no acute distress. NECK: Supple without JVD or thyromegaly. LUNGS: Breath sounds are rhonchorous to auscultation bilaterally. Respiration equal and unlabored. No wheezes, rales or rhonchi. HEART: Regular rate and rhythm without murmurs, rubs or gallops. S1 and S2 heard. EXTREMITIES: Normal range of motion, no edema. No clubbing or cyanosis. Peripheral pulses intact and strong. VITALS: Blood pressure 128/73, SpO2 90% on 4 L nasal cannula, pulse 50, respiratory rate 18, temp 98F TELEMETRY: Sinus rhythm without arrhythmias overnight. Occasional PVCs LABS: Sodium 140, potassium 3.2, BUN 43, creatinine 1.62 IMPRESSION: Acute COPD exacerbation, improving Abnormal troponins, not indicative of ACS Infrarenal abdominal aortic aneurysm, 6.4 cm, pending intervention History of coronary artery disease Hypertension Dyslipidemia Diabetes Acute kidney injury Nicotine dependence PLAN: Potassium supplementation per electrolyte protocol Continue to monitor kidney function with recommendations from nephrology Recommend continued inpatient workup for intervention regarding abdominal aneurysm CTA of the abdomen pending Further recommendations will be based upon clinical course The patient has been seen and evaluated. Plan of care has been reviewed and agreed upon by Dr Cavazos. Objective - Vital Signs Vital signs: Vital Signs Temp 98 F 06/06/21 09:16 Pulse 47 L 06/06/21 13:50 Resp 18 06/06/21 13:50 BP 152/79 06/06/21 12:10 Pulse Ox 95 06/06/21 12:10 Intake & Output 06/05/21 06/06/21 06/06/21 18:59 06:59 18:59 Intake Total 390 300 Balance 390 300 Weight 104.1 kg Intake: Oral 390 300 Other: Voiding Method Toilet Urinal # Voids 1 1 1 - Labs CBC & Chem 7: 06/05/21 10:25 06/06/21 09:16 Labs: Abnormal Lab Results - Last 24 Hours (Table) 06/05/21 06/05/21 06/06/21 Range/Units 16:40 20:08 09:16 Potassium 3.2 L (3.5-5.1) mmol/L Carbon Dioxide 37 H (22-30) mmol/L BUN 43 H (9-20) mg/dL Creatinine 1.62 H (0.66-1.25) mg/dL Glucose 111 H (74-99) mg/dL POC Glucose (mg/dL) 202 H 243 H (75-99) mg/dL
--- NOTE | 2021-06-06 15:27 | CT ---
EXAMINATION TYPE: CT angio abdomen pelvis DATE OF EXAM: 06/06/2021 COMPARISON: 05/18/2021 HISTORY: No Complaints at time of scan. CT DLP: 1072.2 mGycm Automated exposure control for dose reduction was used. CONTRAST: Performed with IV Contrast, patient injected with 80 mL of Isovue 370. Images obtained from the diaphragm to the floor the pelvis with IV contrast. There are 3-D post proce ssed images. There is pleural thickening and calcification right lower lobe. There is some linear infiltrate and a telectasis at the lung bases are laterally. Heart is enlarged. Thoracic aorta and abdominal aorta are atheromatous. There is variable plaque formation. There is 6.6 cm aneurysm of the lower abdominal ao rta with variable thrombus on the wall of the aneurysm. Aneurysm measures 10 cm in length. There is n o retroperitoneal adenopathy. There is aneurysm extending into the common iliac arteries. The right c ommon iliac artery measures 3.3 cm. Left common iliac artery measures 1.8 cm. There is arterial flow in the celiac artery and superior mesenteric artery. There is arterial flow in the iliac and femoral arteries. There is no evidence of hemodynamic stenosis. There is arterial flow in both renal arteries. Liver spleen stomach pancreas gallbladder appear intact. Bile ducts are not dilated. There is bilater al low density adrenal masses that measure up to 4.3 cm in length. Kidneys show satisfactory contrast opacification. There is no hydronephrosis. There are multiple sigmoid diverticula. Bladder distends smoothly. There is no inguinal hernia. There is no free fluid in the pelvis. Terminal ileum appears normal. Appendix not definitely seen. There is degenerative disc space narrowing at L5-S1. Lumbar vertebra appear intact. There is no compr ession fracture. The bony pelvis is intact. IMPRESSION: Fusiform lower abdominal aortic aneurysm. Bilateral common iliac artery aneurysms. No evidence of hem odynamic stenosis. Colonic diverticulosis. Infiltrate and atelectasis at the lung bases with calcified pleural plaque in the right lower lobe. Bilateral low density adrenal masses suggestive of benign disease. Aneurysm not changed compared to o ld exam.
[2021-06-06 16:31] LABS: Glucose,Whole Blood 210 mg/dL (75-99)
[2021-06-06 20:03] LABS: Glucose,Whole Blood 246 mg/dL (75-99)
[2021-06-06] MEDS: ATORVASTATIN 80 MG TAB PO SCH (22:23)
[2021-06-07] MEDS ORDERED: Magnesium Replacement Protocol 1 EACH MISC MISCELLANE PRN (01:10)
[2021-06-07] MEDS: MAGNESIUM SULFATE-D5W PMX 1 GM in DEXTROSE/WATER 1 100ML.BAG IVPB SCH ×3 (01:21→03:27)
[2021-06-07] MEDS: IPRATROPIUM-ALBUTEROL 3 ML NEB INHALATION SCH ×3 (04:07→12:06)
[2021-06-07] MEDS: carvediloL 12.5 MG TAB PO SCH ×2 (05:34→15:35)
[2021-06-07] MEDS: PANTOPRAZOLE 40 MG TABLET PO SCH (05:34)
[2021-06-07 06:07] LABS: Glucose,Whole Blood 59 mg/dL (75-99)
[2021-06-07 06:23] LABS: Glucose,Whole Blood 70 mg/dL (75-99)
[2021-06-07 06:38] LABS: Glucose,Whole Blood 86 mg/dL (75-99)
[2021-06-07 08:15] LABS: Calcium 9.1 mg/dL (8.4-10.2); Potassium 3.1 mmol/L (3.5-5.1)
[2021-06-07] MEDS: SYMBICORT 160-4.5 MCG INHALER INHALATION SCH (08:18)
[2021-06-07 09:07] VITALS: TEMP 97.9
[2021-06-07] MEDS: INSULIN DETEMIR (LEVEMIR) 100 UNIT/ML SYR SQ SCH (09:08)
[2021-06-07] MEDS: ASPIRIN 81 MG PO SCH (09:09)
[2021-06-07] MEDS: amLODIPine 5 MG TAB PO SCH (09:09)
[2021-06-07] MEDS: CLOPIDOGREL 75 MG TAB PO SCH (09:09)
[2021-06-07] MEDS: POTASSIUM CHLORIDE ER 20 MEQ TAB.ER PO SCH ×2 (09:09→11:28)
[2021-06-07] MEDS: ESCITALOPRAM 20 MG TAB PO SCH (09:09)
[2021-06-07] MEDS: allopurinoL 300 MG TAB PO SCH (09:09)
[2021-06-07] MEDS: predniSONE 20 MG TAB PO SCH (09:09)
--- NOTE | 2021-06-07 09:55 | P.PN ---
Subjective Progress Note Date: 06/07/21 Patient seen and examined. Comfortable with No complaints Objective - Vital Signs Vital signs: Vital Signs Temp 97.9 F 06/07/21 09:06 Pulse 45 L 06/07/21 09:06 Resp 18 06/07/21 09:06 BP 123/70 06/07/21 09:06 Pulse Ox 98 06/07/21 09:06 Intake & Output 06/06/21 06/07/21 06/07/21 18:59 06:59 18:59 Intake Total 540 880 Balance 540 880 Weight 104.5 kg Intake: IV 620 Invasive Line 3 20 Sodium Chloride 0.9% 1, 600 000 ml @ 100 mls/hr IV . Q10H [facility] Rx#:[id number] Oral 540 260 Other: Voiding Method Toilet Urinal # Voids 1 1 1 # Bowel Movements 1 - Exam Gen. a pleasant and cooperative male in no acute distress. On oxygen. Sitting at the bedside. HEENT is normocephalic, atraumatic, extraocular motion intact. Heart appears regular at this time. Lungs diminished but clear. Abdomen is sof t, nontender nondistended. Extremity show no clubbing, cyanosis. Minimal edema. - Labs CBC & Chem 7: 06/05/21 10:25 06/07/21 07:40 Labs: Abnormal Lab Results - Last 24 Hours (Table) 06/06/21 06/06/21 06/06/21 Range/Units 09:16 16:30 18:56 Potassium 3.2 L (3.5-5.1) mmol/L Chloride (98-107) mmol/L Carbon Dioxide 37 H (22-30) mmol/L BUN 43 H (9-20) mg/dL Creatinine 1.62 H (0.66-1.25) mg/dL Glucose 111 H (74-99) mg/dL POC Glucose (mg/dL) 210 H (75-99) mg/dL Magnesium 1.4 L (1.6-2.3) mg/dL 06/06/21 06/07/21 06/07/21 Range/Units 20:01 06:06 06:22 Potassium (3.5-5.1) mmol/L Chloride (98-107) mmol/L Carbon Dioxide (22-30) mmol/L BUN (9-20) mg/dL Creatinine (0.66-1.25) mg/dL Glucose (74-99) mg/dL POC Glucose (mg/dL) 246 H 59 L 70 L (75-99) mg/dL Magnesium (1.6-2.3) mg/dL 06/07/21 Range/Units 07:40 Potassium 3.1 L (3.5-5.1) mmol/L Chloride 97 L (98-107) mmol/L Carbon Dioxide 36 H (22-30) mmol/L BUN 34 H (9-20) mg/dL Creatinine 1.40 H (0.66-1.25) mg/dL Glucose 68 L (74-99) mg/dL POC Glucose (mg/dL) (75-99) mg/dL Magnesium (1.6-2.3) mg/dL Assessment and Plan Assessment: 6.6 cm infrarenal abdominal aortic aneurysm Right common iliac artery aneurysm COPD exacerbation, on oxygen Plan: Was able to obtain CT angiogram and posterior creatinine is stable. We will work on surgical planning for repair in the near future. From my standpoint this is not something that the patient needs to be inpatient for at this time in order to repair. Maintain his proper home therapies and follow-up short-term for outpatient scheduling
--- NOTE | 2021-06-07 09:59 | P.PN ---
Subjective Patient is seen in follow for acute kidney injury and chronic any disease. Renal function improving. Good urine output. No vomiting or diarrhea. No active complaints. Vital signs are stable. General: The patient appeared well nourished and normally developed. HEENT: Head exam is unremarkable. On nasal cannula. LUNGS: Breath sounds decreased. Rhonchi present. HEART: Rate and Rhythm are regular. ABDOMEN: Soft, no distention. EXTREMITITES: No edema. Objective - Vital Signs Vital signs: Vital Signs Temp 97.9 F 06/07/21 09:06 Pulse 45 L 06/07/21 09:06 Resp 18 06/07/21 09:06 BP 123/70 06/07/21 09:06 Pulse Ox 98 06/07/21 09:06 Intake & Output 06/06/21 06/07/21 06/07/21 18:59 06:59 18:59 Intake Total 540 880 Balance 540 880 Weight 104.5 kg Intake: IV 620 Invasive Line 3 20 Sodium Chloride 0.9% 1, 600 000 ml @ 100 mls/hr IV . Q10H [facility] Rx#:[id number] Oral 540 260 Other: Voiding Method Toilet Urinal # Voids 1 1 1 # Bowel Movements 1 - Labs CBC & Chem 7: 06/05/21 10:25 06/07/21 07:40 Labs: Abnormal Lab Results - Last 24 Hours (Table) 06/06/21 06/06/21 06/06/21 Range/Units 09:16 16:30 18:56 Potassium 3.2 L (3.5-5.1) mmol/L Chloride (98-107) mmol/L Carbon Dioxide 37 H (22-30) mmol/L BUN 43 H (9-20) mg/dL Creatinine 1.62 H (0.66-1.25) mg/dL Glucose 111 H (74-99) mg/dL POC Glucose (mg/dL) 210 H (75-99) mg/dL Magnesium 1.4 L (1.6-2.3) mg/dL 06/06/21 06/07/21 06/07/21 Range/Units 20:01 06:06 06:22 Potassium (3.5-5.1) mmol/L Chloride (98-107) mmol/L Carbon Dioxide (22-30) mmol/L BUN (9-20) mg/dL Creatinine (0.66-1.25) mg/dL Glucose (74-99) mg/dL POC Glucose (mg/dL) 246 H 59 L 70 L (75-99) mg/dL Magnesium (1.6-2.3) mg/dL 06/07/21 Range/Units 07:40 Potassium 3.1 L (3.5-5.1) mmol/L Chloride 97 L (98-107) mmol/L Carbon Dioxide 36 H (22-30) mmol/L BUN 34 H (9-20) mg/dL Creatinine 1.40 H (0.66-1.25) mg/dL Glucose 68 L (74-99) mg/dL POC Glucose (mg/dL) (75-99) mg/dL Magnesium (1.6-2.3) mg/dL Assessment and Plan Plan: Assessment: 1. Chronic kidney disease stage IIIB with baseline creatinine in the range of 1.8-2. GFR stable. Etiologies nephrosclerosis and component of diabetic kidney disease as he does have proteinuria on UA. Further workup outpatient. Creatinine 1.4 today. 2. Infrarenal aortic aneurysm. Evaluated by vascular surgery. 3. COPD. Home oxygen dependent. 4. Diabetes mellitus. 5. Hypertension with chronic kidney disease. Exacerbated by steroids. Controlled this morning. 6. History of coronary artery disease. 7. Hypokalemia from saline diuresis. Plan: Hep-Lock IV fluids. Encourage oral intake. Avoid nephrotoxins. Continue to monitor renal function and urine output. Patient received IV contrast on June 06 for CTA. Potassium is being replaced. Follow-up outpatient in about 1 week post discharge.
--- NOTE | 2021-06-07 10:16 | P.DS ---
Providers Date of admission: 06/01/21 18:19 Expected date of discharge: 06/07/21 Attending physician: Lanette Pedraza MD Consults: 06/01/21 18:20 Consult Physician Urgent Consulting Provider: [facility] Consult Reason/Comments: acute chest pain, hx ascad s/p cabg Do you want consulting provider notified?: Yes Consult Physician Urgent Consulting Provider: Tahira Costa Consult Reason/Comments: acute hypoxic resp failure, aecopd Do you want consulting provider notified?: Yes 06/02/21 09:08 Consult Physician Routine Consulting Provider: Medina Tam Consult Reason/Comments: AAA Do you want consulting provider notified?: Yes 06/04/21 08:33 Consult Physician Routine Consulting Provider: Ara Gonzalez Consult Reason/Comments: Acute/chronic renal failure Do you want consulting provider notified?: Yes Primary care physician: Tk Plaza MD Hospital Course: This is a 60-year-old male with very complex past medical history noted below Presented to the emergency room with acute on chronic dyspnea and was found to be hypoxic. Patient is to have oxygen at home but ran out of it approximately a year ago did not see any doctors. He was evaluated in the ER and admitted to the hospital for further management of his medical problems noted below. 1. Acute on chronic hypoxic respiratory failure probably secondary to exacerbation of underlying COPD. O2 sats greater than 90% on 2 L of oxygen via nasal cannula. Improved with bronchodilators and steroid 2. Troponin elevation, most likely non-thrombotic troponin leak secondary to demand/supply mismatch and hypoxia. Patient was seen and evaluated by cardiology. Echocardiogram showed preserved ejection fraction with no significant valvular or wall motion abnormalities. 3. Acute COPD exacerbation, started on bronchodilators and IV Solu-Medrol. Pulmonary consulted for further evaluation. 4. Infrarenal AAA measuring 6.4 cm noted on echo. Seen and evaluated by vascular surgery. CT angiogram done during this hospitalization reviewed. Follow-up outpatient. Tobacco cessation encouraged. 5. Sinus bradycardia, clonidine discontinued by cardiology. Patient was started on Norvasc 6. Chronic medical problems, coronary artery disease with previous CABG, station IIIB chronic kidney disease with baseline creatinine around 2.2, type 2 diabetes, essential hypertension, hyperlipidemia Today, I reviewed his medication list and lab work results. Creatinine at baseline. Patient will be discharged home in a stable condition General: The patient is awake and alert, in no distress Eye: there is normal conjunctiva bilaterally. Neck: The neck is supple, there is no JVD. Cardiovascular: Normal S1-S2, no S3-S4, no murmurs. Respiratory: Lungs clear to auscultation bilaterally Gastrointestinal: Abdomen is soft, nontender Musculoskeletal: There is no pedal edema. Neurological:. Speech is normal. Skin: Skin is warm and dry Patient Condition at Discharge: Stable Plan - Discharge Summary Discharge Rx Participant: No New Discharge Prescriptions: New amLODIPine [Norvasc] 5 mg PO BID #60 tab carvediloL [Coreg*] 12.5 mg PO BID-W/MEALS #60 tab Atorvastatin [Lipitor] 80 mg PO HS #30 tab Continue Pioglitazone [Actos] 30 mg PO DAILY Omeprazole 20 mg PO DAILY Aspirin EC [Ecotrin Low Dose] 81 mg PO DAILY Insulin Detemir (Levemir) [Levemir] 10 units SQ DAILY Insulin Detemir (Levemir) [Levemir] 42 units SQ HS HYDROcodone/APAP 7.5-325MG [[place] 7.5-325] 1 tab PO QID PRN PRN Reason: Pain Allopurinol [Zyloprim] 300 mg PO DAILY Nitroglycerin Sl Tabs [Nitrostat] 0.4 mg SL Q5M PRN PRN Reason: Chest Pain Isosorbide Mononitrate ER [Imdur] 30 mg PO DAILY Escitalopram [Lexapro] 20 mg PO DAILY Clopidogrel [Plavix] 75 mg PO DAILY Discontinued Diltiazem HCl [Diltiazem HCl 24Hr ER (CD)] 120 mg PO DAILY Simvastatin [Zocor] 40 mg PO DAILY Discharge Medication List Allopurinol [Zyloprim] 300 mg PO DAILY 06/01/21 [History] Aspirin EC [Ecotrin Low Dose] 81 mg PO DAILY 06/01/21 [History] Clopidogrel [Plavix] 75 mg PO DAILY 06/01/21 [History] Escitalopram [Lexapro] 20 mg PO DAILY 06/01/21 [History] HYDROcodone/APAP 7.5-325MG [[place] 7.5-325] 1 tab PO QID PRN 06/01/21 [History] Insulin Detemir (Levemir) [Levemir] 10 units SQ DAILY 06/01/21 [History] Insulin Detemir (Levemir) [Levemir] 42 units SQ HS 06/01/21 [History] Isosorbide Mononitrate ER [Imdur] 30 mg PO DAILY 06/01/21 [History] Nitroglycerin Sl Tabs [Nitrostat] 0.4 mg SL Q5M PRN 06/01/21 [History] Omeprazole 20 mg PO DAILY 06/01/21 [History] Pioglitazone [Actos] 30 mg PO DAILY 06/01/21 [History] Atorvastatin [Lipitor] 80 mg PO HS #30 tab 06/07/21 [Rx] amLODIPine [Norvasc] 5 mg PO BID #60 tab 06/07/21 [Rx] carvediloL [Coreg*] 12.5 mg PO BID-W/MEALS #60 tab 06/07/21 [Rx] Follow up Appointment(s)/Referral(s): Tahira Costa MD [STAFF PHYSICIAN] - 1 Week Guille Cavazos MD [STAFF PHYSICIAN] - 1 Week Tk Plaza MD [Primary Care Provider] - 1-2 days Keon Thompson DO [STAFF PHYSICIAN] - 1 Week Discharge Disposition: HOME SELF-CARE
[2021-06-07 11:34] LABS: Glucose,Whole Blood 103 mg/dL (75-99)
--- NOTE | 2021-06-07 12:48 | P.PN ---
Subjective Progress Note Date: 06/07/21 The patient is a 60-year-old male with past medical history of COPD, coronary artery disease status post CABG, hypertension, dyslipidemia, and nicotine dependence, who presented to the hospital with new onset of chest discomfort. He was also experiencing shortness of breath and intermittent abdominal pain. CT of the abdomen and pelvis showed enlarging infrarenal AAA up to 6.4 cm along with a focal aneurysm distal to the right common iliac artery up to 4 cm. Vascular surgery was consulted and he is pending intervention. CTA was completed Tuesday evening, which shows 6.6x10 cm aneurysm of lower abdominal aorta with variable thrombus. Aneurysm extending into the common iliac arteries with the right measuring 3.3 cm and the left 1.8. He states he continues to do well. He states he is breathing well and is able to sleep comfortably at night. No chest pain or chest pressure. No heart racing or fluttering. No dizziness or lightheadedness with ambulation. GENERAL: Well-appearing, well-nourished and in no acute distress. NECK: Supple without JVD or thyromegaly. LUNGS: Bilateral expiratory wheezes to auscultation. Respiration equal and unlabored. HEART: Regular rate and rhythm without murmurs, rubs or gallops. S1 and S2 heard. EXTREMITIES: Normal range of motion, no edema. No clubbing or cyanosis. Peripheral pulses intact and strong. VITALS: Blood pressure 128/73, SpO2 90% on 4 L nasal cannula, pulse 50, respiratory rate 18, temp 98F TELEMETRY: Sinus rhythm without arrhythmias overnight. Occasional PVCs LABS: Sodium 139, potassium 3.1, BUN 34, creatinine 1.40, magnesium 2.1 IMPRESSION: Acute COPD exacerbation, improving Abnormal troponins, not indicative of ACS Infrarenal abdominal aortic aneurysm, 6.4 cm, pending intervention History of coronary artery disease Hypertension Dyslipidemia Diabetes Acute kidney injury, improving Nicotine dependence PLAN: Continue current medication regimen Continue to light replacement Continue to recommend that surgical intervention be completed during this admission as he has a history of depression and noncompliance with follow-up visits Surgical recommendations per vascular team The patient has been seen and evaluated. Plan of care has been reviewed and agreed upon by Dr Cavazos. Objective - Vital Signs Vital signs: Vital Signs Temp 97.9 F 06/07/21 09:06 Pulse 70 06/07/21 12:18 Resp 18 06/07/21 11:27 BP 153/83 06/07/21 11:27 Pulse Ox 100 06/07/21 11:27 Intake & Output 06/06/21 06/07/21 06/07/21 18:59 06:59 18:59 Intake Total 540 880 Balance 540 880 Weight 104.5 kg Intake: IV 620 Invasive Line 3 20 Sodium Chloride 0.9% 1, 600 000 ml @ 100 mls/hr IV . Q10H [facility] Rx#:[id number] Oral 540 260 Other: Voiding Method Toilet Urinal # Voids 1 1 1 # Bowel Movements 1 - Labs CBC & Chem 7: 06/05/21 10:25 06/07/21 07:40 Labs: Abnormal Lab Results - Last 24 Hours (Table) 06/06/21 06/06/21 06/06/21 Range/Units 16:30 18:56 20:01 Potassium (3.5-5.1) mmol/L Chloride (98-107) mmol/L Carbon Dioxide (22-30) mmol/L BUN (9-20) mg/dL Creatinine (0.66-1.25) mg/dL Glucose (74-99) mg/dL POC Glucose (mg/dL) 210 H 246 H (75-99) mg/dL Magnesium 1.4 L (1.6-2.3) mg/dL 06/07/21 06/07/21 06/07/21 Range/Units 06:06 06:22 07:40 Potassium 3.1 L (3.5-5.1) mmol/L Chloride 97 L (98-107) mmol/L Carbon Dioxide 36 H (22-30) mmol/L BUN 34 H (9-20) mg/dL Creatinine 1.40 H (0.66-1.25) mg/dL Glucose 68 L (74-99) mg/dL POC Glucose (mg/dL) 59 L 70 L (75-99) mg/dL Magnesium (1.6-2.3) mg/dL 06/07/21 Range/Units 11:32 Potassium (3.5-5.1) mmol/L Chloride (98-107) mmol/L Carbon Dioxide (22-30) mmol/L BUN (9-20) mg/dL Creatinine (0.66-1.25) mg/dL Glucose (74-99) mg/dL POC Glucose (mg/dL) 103 H (75-99) mg/dL Magnesium (1.6-2.3) mg/dL
[2021-06-07 15:38] VITALS: BP 164/90; PULSE 55
== END 2021-06-07 16:04 | disposition home or self-care (01) | DRG 189 ==
LOC: EC 15:33 → 3SCARD 18:19
PROVIDERS: ADMIT Internal Medicine; ATTEND Internal Medicine
DX: J96.21 Acute and chronic respiratory failure with hypoxia (principal); J44.1 Chronic obstructive pulmonary disease with (acute) exacerbation; I24.8 Other forms of acute ischemic heart disease; N17.9 Acute kidney failure, unspecified; I72.3 Aneurysm of iliac artery; I71.4 Abdominal aortic aneurysm, without rupture; I44.7 Left bundle-branch block, unspecified; E11.22 Type 2 diabetes mellitus with diabetic chronic kidney disease; E66.9 Obesity, unspecified; Z68.31 Body mass index [BMI] 31.0-31.9, adult; E78.5 Hyperlipidemia, unspecified; E87.6 Hypokalemia; T50.2X5A Adverse effect of carbonic-anhydrase inhibitors, benzothiadiazides and other diuretics, initial encounter; I12.9 Hypertensive chronic kidney disease with stage 1 through stage 4 chronic kidney disease, or unspecified chronic kidney disease; F17.210 Nicotine dependence, cigarettes, uncomplicated; Z71.6 Tobacco abuse counseling; I25.10 Atherosclerotic heart disease of native coronary artery without angina pectoris; I25.2 Old myocardial infarction; I08.3 Combined rheumatic disorders of mitral, aortic and tricuspid valves; Z20.822 Contact with and (suspected) exposure to COVID-19; K57.30 Diverticulosis of large intestine without perforation or abscess without bleeding; Z99.81 Dependence on supplemental oxygen; N18.32 Chronic kidney disease, stage 3b; T38.0X5A Adverse effect of glucocorticoids and synthetic analogues, initial encounter; R00.1 Bradycardia, unspecified; Z91.81 History of falling; Z79.02 Long term (current) use of antithrombotics/antiplatelets; Z79.4 Long term (current) use of insulin; Z79.82 Long term (current) use of aspirin; Z79.84 Long term (current) use of oral hypoglycemic drugs; Z79.899 Other long term (current) drug therapy; Z82.49 Family history of ischemic heart disease and other diseases of the circulatory system; Z86.79 Personal history of other diseases of the circulatory system; Z95.1 Presence of aortocoronary bypass graft; Z95.5 Presence of coronary angioplasty implant and graft
CPT/HCPCS: 36415; 71046; 74174; 80048; 80053; 81001; 83036; 83605; 83735; 83880; 84132; 84484; 85025; 85027; 85610; 85730; 87635; 93306; 94640; 96365; 96375; 99285

== ENCOUNTER 2021-07-06 06:08 | Inpatient (IN) | payer MEDICARE ==
[~2021-07-06 06:08] MED LIST: ALPRAZolam 0.25 MG TAB PO PRN; DEXAMETHASONE SOD PHOSPHATE 4 MG/ML 1 ML VIAL IV ONE; ONDANSETRON 4 MG/2 ML VIAL IVP ONE; SODIUM CHLORIDE 0.9% 1,000 ML in EMPTY BAG 1 BAG IV ONE; ZOLPIDEM 5 MG TAB PO PRN; ceFAZolin 1 GM in SODIUM CHLORIDE 0.9% 250 ML IRRIGATION PRN
[2021-07-06 06:51] LABS: Glucose,Whole Blood 168 mg/dL (75-99)
[2021-07-06 06:54] LABS: Basophils # (A) 0.1 k/uL (0-0.2); Basophils % (A) 1 %; Eosinophils # (A) 0.1 k/uL (0-0.7); Eosinophils % (A) 1 %; HCT 41.5 % (39.0-53.0); HGB 13.6 gm/dL (13.0-17.5); Lymphocytes # (A) 1.4 k/uL (1.0-4.8); Lymphocytes % (A) 13 %; MCH 30.1 pg (25.0-35.0); MCHC 32.9 g/dL (31.0-37.0); MCV 91.5 fL (80.0-100.0); Mean Platelet Volume 8.3; Monocytes # (A) 0.5 k/uL (0-1.0); Monocytes % (A) 5 %; Neutrophils # (A) 8.5 k/uL (1.3-7.7); Neutrophils % (A) 80 %; Platelet Count 238 k/uL (150-450); Potassium 2.9 mmol/L (3.5-5.1); RBC 4.54 m/uL (4.30-5.90); RDW 13.5 % (11.5-15.5); WBC 10.7 k/uL (3.8-10.6)
[2021-07-06] MEDS ORDERED: Potassium Replacement Protocol 1 EACH MISC MISCELLANE PRN (07:12)
[2021-07-06] MEDS ORDERED: SODIUM CHLORIDE 0.9% 1,000 ML IV ONE ×2 (07:17→08:45)
[2021-07-06] MEDS ORDERED: ROCURONIUM 10 MG/ML (5 ML VIAL) IV ONE (07:23)
[2021-07-06] MEDS ORDERED: KETAMINE 10 MG/ML 20 ML VIAL ONE (07:23)
[2021-07-06] MEDS ORDERED: ePHEDrine 50 MG/ML 1 ML AMP ONE (07:23)
[2021-07-06] MEDS ORDERED: GLYCOPYRROLATE 0.2 MG/ML 2 ML VIAL ONE (07:23)
[2021-07-06] MEDS ORDERED: NEOSTIGMINE 1 MG/ML 10 ML VIAL ONE (07:23)
[2021-07-06] MEDS ORDERED: LIDOCAINE 1% INJ 10MG/ML (20 ML MDV) ONE (07:23)
[2021-07-06] MEDS ORDERED: HEPARIN SODIUM,PORCINE 10,000 UNIT/ML 1 ML VIAL ONE (07:23)
[2021-07-06] MEDS ORDERED: SUCCINYLCHOLINE CHLORIDE 100 MG/5 ML SYR IV ONE (07:23)
[2021-07-06] MEDS ORDERED: PROPOFOL 10 MG/ML 20 ML VIAL IV ONE (07:23)
[2021-07-06] MEDS ORDERED: fentaNYL (PF) 50 MCG/ML 2 ML AMP ONE (07:23)
[2021-07-06] MEDS ORDERED: MIDAZOLAM 2 MG/2 ML VIAL ONE (07:23)
[2021-07-06] MEDS ORDERED: LACTATED RINGERS 1,000 ML IV ONE ×2 (07:30→10:27)
[2021-07-06] MEDS ORDERED: IOPAMIDOL-370 100ML BTL INJ ONE ×2 (10:28)
--- NOTE | 2021-07-06 11:07 | P.OP ---
Description of Procedure: Date: 07/06/2021 Preoperative diagnosis: Asymptomatic Infrarenal 6.5 cm AAA, Bilateral iliac artery aneurysms Postoperative diagnosis: Same Procedure: 1. Percutaneous Endovascular aortic repair with [place] VICKY 2. Ultrasound-guided bilateral common femoral artery access 3. Bilateral iliac artery selective angiograms 4. Apthus transcatheter enhanced fixation x7 Surgeon: Donna MAY Anesthesia: General Estimated blood loss: 50 mL Complications: None Condition: Stable Disposition: Multiphasic DP and PT signal bilaterally Contrast: 150cc Flouro time: 151 minutes Indications: 60 year old gentleman with history of an infrarenal AAA measuring 6.5cm as well as bilateral iliac artery aneurysms abutting the internal iliac artery bilaterally. He presents to the hospital for EVAR with VICKY graft. Operative narrative: After written and informed consent was obtained from the patient all risks benefits and complications were described the patient was brought to the [facility] Representative and laid in a supine position. The area of the groins were prepped and draped in usual sterile fashion after appropriate anesthetic was performed per the anesthesiologist. A timeout was performed in normal fashion and antibiotics were administered prior to incisions. Utilizing ultrasound bilateral common femoral arteries were visualized demonstrating patency with minimal calcification. Under ultrasound guidance utilizing a multipurpose needle bilateral common femoral arteries were accessed and guidewire was placed followed by deployment of 2 Perclose closure devices for each femoral artery. Utilizing Seldinger technique and 8-[place] sheath was then placed and patient was administered heparin and followed with ACTs. 035 Glidewire was then placed up the right femoral sheath and exchanged for a Lunderquist wire through an angled glide catheter. The left femoral artery was then utilized and guidewire was placed followed by a Lunderquist wire. Two 16F [place] sheaths were then placed into the distal aorta. A .035 glidewire advantage was then placed up the right femoral sheath and a snare catheter up the right and the wire was snared and brought externally through the left femoral sheath. A [id number] VICKY main graft was then placed up the right femoral sheath. Retrograde angiogram was obtained demonstrating the takeoff of the internal iliac artery. The main graft was deployed just superior to the bifurcation in normal fashion. Utilizing the body floss wire the left femoral 16F sheath was placed into the right iliac graft and an 035 glidewire was placed into the internal iliac artery. A [place] Visionfy catheter was then placed into the internal iliac artery and selective angiogram was performed demonstrating good intraluminal access. A jolley wire was then placed and a hypo limb graft [id number] was then placed into the internal iliac artery. The overlap was then ballooned with a [id number] balloon. The right iliac graft was then deployed fully and selective angiogram was obtained demonstrating good flow without evidence of leak. Attention was then placed to the left iliac arteries and same steps were performed and a [id number] VICKY graft was placed followed by a hypo limb [id number] into the internal iliac artery. Once completed attention was then placed to the AAA and the Lunderquist wires were placed into the descending thoracic aorta and 16F sheath on the right was placed at the renal bifurcation. A pigtail was placed up the left and aortogram was obtained. A main body 2 [id number] [place] graft was then deployed just beneath the renal bifurcation. Once completed two bridge graft pieces [id number] on the right and a [id number] on the left were then placed in usual fashion. A molding balloon was then used to balloon the overlaps. Attention was then placed to the proximal seal zone and utilizing Apthus endoanchors the graft was secured. 7 endoanchors were then placed- 3 in the AP, 2 at 30 degrees BENGALI and 2 at 30 degrees HALL. Once completed a final angiogram was obtained which demonstrated a small type 3 endoleak between the VICKY and bridge on the left. Intragraft angiogram verify the bridge leak. Due to the leak another bridge graft piece was then placed [id number]. Final angiogram was again obtained demonstrating complete resolution of the leak and no evidence of a type I leak. There is filling through a lumbar but no type II was visualized. All guidewires and catheters were then removed and the Perclose closure devices were closed in normal fashion. The areas were then cleansed and dressings were placed. The patient tolerated procedure well and had multiphasic DP and PT signals bilaterally and was sent to PACU for recovery.
[2021-07-06] MEDS ORDERED: HYDROcodone/APAP 5-325MG 1 EACH TAB PO PRN (11:08)
[2021-07-06] MEDS ORDERED: NITROGLYCERIN SL TABS 0.4 MG TAB SUBLINGUAL PRN (11:15)
[2021-07-06] MEDS ORDERED: ALBUTEROL NEBULIZED 2.5 MG/3 ML INHALATION ONE (11:33)
[2021-07-06] MEDS ORDERED: hydrALAZINE HCL 20 MG/ML 1 ML VIAL ONE ×2 (11:56→13:44)
[2021-07-06] MEDS ORDERED: hydrALAZINE HCL 20 MG/ML 1 ML VIAL IVP ONE ×2 (11:57→13:48)
[2021-07-06] MEDS: HYDROmorphone 0.5 MG/0.5 ML SYRINGE IVP PRN ×2 (12:05→13:56)
[2021-07-06 12:34] LABS: Glucose,Whole Blood 135 mg/dL (75-99)
[2021-07-06] MEDS ORDERED: METOPROLOL TARTRATE 5 MG/5 ML VIAL IVP ONE ×2 (13:00→13:04)
--- NOTE | 2021-07-06 13:49 | IR ---
EXAMINATION TYPE: IR correctional captain aorta DATE OF EXAM: 07/06/2021 CLINICAL HISTORY: AAA TECHNIQUE: Fluoroscopy. COMPARISON: CTA abdomen and pelvis June 06, 2021. FINDINGS: Fluoroscopic guidance was provided during angiogram with stent graft placement procedure p erformed by Dr. Thompson. A total of 55 measurements of fluoroscopic time was utilized during the pro cedure and 500 spot images was acquired. Images show placement of aortobiiliac stent graft. Please re olamide to procedure note for further details if necessary. IMPRESSION: As Above.
[2021-07-06] MEDS: SODIUM CHLORIDE 0.9% 1,000 ML IV SCH ×2 (15:19→20:50)
[2021-07-06] MEDS: POTASSIUM CHLORIDE 10 MEQ in WATER FOR INJECTION 1 100ML.BAG IVPB SCH ×2 (15:19→15:20)
[2021-07-06 15:24] LABS: Glucose,Whole Blood 154 mg/dL (75-99)
[2021-07-06] MEDS: ALBUTEROL NEBULIZED 2.5 MG/3 ML INHALATION SCH ×2 (16:05→20:27)
[2021-07-06] MEDS: ONDANSETRON 4 MG/2 ML VIAL IVP PRN (16:21)
[2021-07-06 16:37] LABS: Glucose,Whole Blood 164 mg/dL (75-99)
--- NOTE | 2021-07-06 17:29 | P.CONS ---
History of Present Illness - Reason for Consult Consult date: 07/06/21 Medical management Requesting physician: Keon Thompson - Chief Complaint CC: abdominal pain - History of Present Illness Patient is a 60-year-old male with a past medical history of COPD on 4 L home O2, infrarenal AAA, bilateral iliac artery aneurysms, coronary artery disease status post CABG, stage III CK D, diabetes mellitus, hypertension and hyperlipidemia who was recently admitted for infrarenal AAA repair. Patient is now status post surgery. He is currently complaining of some abdominal pain. He states that he does not have an appetite to eat after the surgery. Patient was recently admitted about a month ago because of shortness of breath and hypoxia because he ran out of his home O2. Patient states that now his home O2 set up. Patient states that he does not check his blood sugars at home however he recently just got a new glucometer. Review of Systems 10 ROS reviewed and are negative except as noted in HPI Past Medical History Past Medical History: COPD, Diabetes Mellitus, Hyperlipidemia, Myocardial Infarction (PR) Additional Past Medical History / Comment(s): rheumatic fever as kid Last Myocardial Infarction Date:: History of Any Multi-Drug Resistant Organisms: None Reported Past Surgical History: Appendectomy, Coronary Bypass/CABG, Heart Catheterization With Stent Past Anesthesia/Blood Transfusion Reactions: No Reported Reaction Date of Last Stent Placement:: of date Past Psychological History: No Psychological Hx Reported Smoking Status: Current every day smoker Past Alcohol Use History: None Reported Past Drug Use History: None Reported - Past Family History Father Family Medical History: Hypertension Medications and Allergies Home Medications Medication Instructions Recorded Confirmed Type Allopurinol [Zyloprim] 300 mg PO DAILY 06/01/21 07/06/21 History Aspirin EC [Ecotrin Low Dose] 81 mg PO DAILY 06/01/21 07/06/21 History Clopidogrel [Plavix] 75 mg PO DAILY 06/01/21 07/06/21 History Escitalopram [Lexapro] 20 mg PO DAILY 06/01/21 07/06/21 History HYDROcodone/APAP 7.5-325MG [[place] 1 tab PO QID PRN 06/01/21 07/06/21 History 7.5-325] Insulin Detemir (Levemir) [Levemir] 10 units SQ DAILY 06/01/21 07/06/21 History Insulin Detemir (Levemir) [Levemir] 42 units SQ HS 06/01/21 07/06/21 History Isosorbide Mononitrate ER [Imdur] 30 mg PO DAILY 06/01/21 07/06/21 History Nitroglycerin Sl Tabs [Nitrostat] 0.4 mg SL Q5M PRN 06/01/21 07/06/21 History Omeprazole 20 mg PO DAILY 06/01/21 07/06/21 History Pioglitazone [Actos] 30 mg PO DAILY 06/01/21 07/06/21 History Albuterol Inhaler [Ventolin Hfa 1 puff INHALATION RT-TID #8 gm 06/07/21 07/06/21 Rx Inhaler] Atorvastatin [Lipitor] 80 mg PO HS #30 tab 06/07/21 07/06/21 Rx Tiotropium 18 Mcg/Puff [Spiriva] 1 puff INHALATION DAILY #30 each 06/07/21 07/06/21 Rx amLODIPine [Norvasc] 5 mg PO BID #60 tab 06/07/21 07/06/21 Rx carvediloL [Coreg*] 12.5 mg PO BID-W/MEALS #60 tab 06/07/21 07/06/21 Rx Allergies Allergy/AdvReac Type Severity Reaction Status Date / Time No Known Allergies Allergy Verified 07/06/21 07:06 Physical Exam Osteopathic Statement: *. No significant issues noted on an osteopathic structural exam other than those noted in the History and Physical/Consult. Vitals: Vital Signs Temp Pulse Pulse Resp BP BP BP 07/06/21 15:40 78 16 160/93 07/06/21 15:25 82 16 158/92 07/06/21 15:10 82 16 158/89 07/06/21 14:55 84 16 152/86 07/06/21 13:40 72 18 178/74 07/06/21 13:25 76 18 170/88 07/06/21 13:10 67 18 166/86 07/06/21 12:55 80 16 177/93 07/06/21 12:40 81 20 157/72 07/06/21 12:25 84 19 157/72 162/74 07/06/21 12:10 76 18 155/88 160/70 07/06/21 11:55 74 18 162/92 170/80 07/06/21 11:40 86 18 180/82 190/94 07/06/21 11:25 84 18 158/82 07/06/21 11:10 987 F H 83 16 153/94 07/06/21 07:07 98.3 F 76 16 169/101 164/126 BP Pulse Ox 07/06/21 15:40 92 L 07/06/21 15:25 92 L 07/06/21 15:10 93 L 07/06/21 14:55 93 L 07/06/21 13:40 170/88 95 07/06/21 13:25 156/77 95 07/06/21 13:10 168/74 95 07/06/21 12:55 177/76 94 L 07/06/21 12:40 164/74 94 L 07/06/21 12:25 94 L 07/06/21 12:10 94 L 07/06/21 11:55 94 L 07/06/21 11:40 94 L 07/06/21 11:25 98 07/06/21 11:10 95 07/06/21 07:07 97 Intake and Output 07/06/21 07/06/21 07/06/21 06:59 14:59 22:59 Intake Total 2125 80 Output Total 1515 500 Balance 610 -420 Intake: IV 2125 Intake, IV Titration 80 Amount Sodium Chloride 0.9% 1, 80 000 ml @ 80 mls/hr IV . [id number] [facility] Rx#:[id number] Output: Urine 1515 500 Other: Weight 101.4 kg 111.4 kg General: [Alert and oriented, well nourished, no acute distress]. Eye: [PERRL, EOMI, normal conjunctiva]. HENT: [Normocephalic, clear tympanic membranes, normal hearing, moist oral mucosa, no scleral icterus, no sinus tenderness]. Neck: [Supple, non-tender, no carotid bruits, no JVD, no lymphadenopathy]. Lungs: [Clear to auscultation and percussion, non-labored respiration]. Heart: [Normal rate, regular rhythm, no murmur, gallop or edema]. Abdomen: [Soft, tenderness to palpate in the lower abdomen, non-distended, normal bowel sounds, no masses]. Musculoskeletal: [Normal range of motion and strength, no tenderness or swelling]. Skin: [Skin is warm, dry and pink, no rashes or lesions]. Neurologic: [Awake, alert, and oriented X3, CN II-XII intact]. Psychiatric: [Cooperative, appropriate mood and affect]. Results CBC & Chem 7: 07/06/21 06:23 07/06/21 06:23 Labs: Abnormal Lab Results - Last 24 Hours (Table) 07/06/21 07/06/21 07/06/21 Range/Units 06:23 06:23 06:48 WBC 10.7 H (3.8-10.6) k/uL Neutrophils # 8.5 H (1.3-7.7) k/uL Potassium 2.9 L (3.5-5.1) mmol/L Carbon Dioxide 32 H (22-30) mmol/L Creatinine 1.69 H (0.66-1.25) mg/dL Glucose 176 H (74-99) mg/dL POC Glucose (mg/dL) 168 H (75-99) mg/dL 07/06/21 07/06/21 07/06/21 Range/Units 12:32 15:23 16:35 WBC (3.8-10.6) k/uL Neutrophils # (1.3-7.7) k/uL Potassium (3.5-5.1) mmol/L Carbon Dioxide (22-30) mmol/L Creatinine (0.66-1.25) mg/dL Glucose (74-99) mg/dL POC Glucose (mg/dL) 135 H 154 H 164 H (75-99) mg/dL Assessment and Plan Assessment: Infrarenal AAA status post repair Your vascular surgery management COPD on home O2 4 L Patient currently satting well on his home O2 Pulmonary consult placed by primary team CK D stage III Baseline creatinine is 2.2. Current creatinine is 1.69 Anticipated creatinine will worsen due to contrast received during the procedure Nephrology consult placed by primary team Resume IV fluids Hypokalemia Potassium replacement protocol Diabetes mellitus Patient currently does not have an appetite to eat We will hold his long-acting insulin until patient's O2 intake improves. Short-acting insulin only for now Chronic conditions Coronary disease status post CABG, hypertension and hyperlipidemia Resume home meds DVT prophylaxis: Per primary team Anticipated length of stay < than [address]: home A total of 50 minutes was spent on the care of this complex patient more than 50% of the time was spent in counseling and care coordination. Home meds reviewed
[2021-07-06] MEDS: LACTATED RINGERS 1,000 ML IV SCH (17:34)
[2021-07-06] MEDS: INSULIN ASPART (NovoLOG) 100 UNIT/ML VIAL SQ SCH ×2 (17:59→20:49)
[2021-07-06 20:16] LABS: Glucose,Whole Blood 183 mg/dL (75-99)
[2021-07-06] MEDS: amLODIPine 5 MG TAB PO SCH (20:49)
[2021-07-06] MEDS: ATORVASTATIN 80 MG TAB PO SCH (20:49)
[2021-07-06] MEDS ORDERED: INSULIN DETEMIR (LEVEMIR) 100 UNIT/ML SYR SQ SCH (21:00)
[2021-07-07] MEDS ORDERED: CALCIUM CARBONATE 500 MG CHEWABLE PO ONE (03:59)
[2021-07-07 06:13] LABS: Glucose,Whole Blood 553 mg/dL (75-99)
[2021-07-07 06:13] LABS: Glucose,Whole Blood 173 mg/dL (75-99)
[2021-07-07] MEDS: INSULIN ASPART (NovoLOG) 100 UNIT/ML VIAL SQ SCH ×4 (06:23→22:31)
[2021-07-07 06:49] LABS: Calcium 8.3 mg/dL (8.4-10.2)
[2021-07-07 06:51] LABS: Magnesium 0.9 mg/dL (1.6-2.3); Potassium 2.6 mmol/L (3.5-5.1)
[2021-07-07] MEDS: POTASSIUM CHLORIDE ER 20 MEQ TAB.ER PO SCH ×2 (07:01→09:21)
[2021-07-07] MEDS ORDERED: POTASSIUM CHLORIDE ER 20 MEQ TAB.ER PO SCH (08:00)
[2021-07-07] MEDS ORDERED: NON FORMULARY DRUG (Aspirin Ec 81 MG Tablet) PO SCH (09:00)
[2021-07-07] MEDS ORDERED: PIOGLITAZONE 30 MG TAB PO SCH (09:00)
[2021-07-07] MEDS ORDERED: INSULIN DETEMIR (LEVEMIR) 100 UNIT/ML SYR SQ SCH (09:00)
[2021-07-07] MEDS ORDERED: PANTOPRAZOLE 40 MG TABLET PO SCH (09:00)
[2021-07-07] MEDS: MAGNESIUM SULFATE-D5W PMX 1 GM in DEXTROSE/WATER 1 100ML.BAG IVPB SCH ×4 (09:18→13:48)
--- NOTE | 2021-07-07 09:18 | P.NPCON ---
History of Present Illness - Reason for Consult chronic renal failure - History of Present Illness Reason for consultation: Chronic kidney disease History of present illness: X and patient is a 60-year-old male seen in renal consultation for chronic kidney disease. Patient has chronic kidney disease stage IIIB with baseline creatinine in the range of 1.4-1.7. Renal function is stable this admission. He underwent percutaneous endovascular aortic repair on July 06. He is receiving IV fluids. Potassium and magnesium are critically low and are being replaced. He was noted to have urinary retention overnight and underwent to straight catheterizations. Denies hematuria. He has long- standing history of diabetes. He also has history of CABG from 25 years ago. He does smoke about a half pack a day and has been smoking for over 30 years. Denies chest pain or shortness of breath. No edema. Denies regular use of nonsteroidals. Denies family history of renal disease. He does not follow with a internal medicine veterinary technician outpatient. Vital signs are stable. General: The patient appeared well nourished and normally developed. HEENT: Head exam is unremarkable. LUNGS: Breath sounds decreased. HEART: Rate and Rhythm are regular. ABDOMEN: Soft, no distention. EXTREMITITES: No edema. Past Medical History Past Medical History: COPD, Diabetes Mellitus, Hyperlipidemia, Myocardial Infarction ([place]) Additional Past Medical History / Comment(s): rheumatic fever as kid Last Myocardial Infarction Date:: History of Any Multi-Drug Resistant Organisms: None Reported Past Surgical History: Appendectomy, Coronary Bypass/CABG, Heart Catheterization With Stent Past Anesthesia/Blood Transfusion Reactions: No Reported Reaction Date of Last Stent Placement:: of date Past Psychological History: No Psychological Hx Reported Smoking Status: Current every day smoker Past Alcohol Use History: None Reported Additional Past Alcohol Use History / Comment(s): pt smokes a pack/ day Past Drug Use History: None Reported - Past Family History Father Family Medical History: Hypertension Medications and Allergies Home Medications Medication Instructions Recorded Confirmed Type Allopurinol [Zyloprim] 300 mg PO DAILY 06/01/21 07/06/21 History Aspirin EC [Ecotrin Low Dose] 81 mg PO DAILY 06/01/21 07/06/21 History Clopidogrel [Plavix] 75 mg PO DAILY 06/01/21 07/06/21 History Escitalopram [Lexapro] 20 mg PO DAILY 06/01/21 07/06/21 History HYDROcodone/APAP 7.5-325MG [[place] 1 tab PO QID PRN 06/01/21 07/06/21 History 7.5-325] Insulin Detemir (Levemir) [Levemir] 10 units SQ DAILY 06/01/21 07/06/21 History Insulin Detemir (Levemir) [Levemir] 42 units SQ HS 06/01/21 07/06/21 History Isosorbide Mononitrate ER [Imdur] 30 mg PO DAILY 06/01/21 07/06/21 History Nitroglycerin Sl Tabs [Nitrostat] 0.4 mg SL Q5M PRN 06/01/21 07/06/21 History Omeprazole 20 mg PO DAILY 06/01/21 07/06/21 History Pioglitazone [Actos] 30 mg PO DAILY 06/01/21 07/06/21 History Albuterol Inhaler [Ventolin Hfa 1 puff INHALATION RT-TID #8 gm 06/07/21 07/06/21 Rx Inhaler] Atorvastatin [Lipitor] 80 mg PO HS #30 tab 06/07/21 07/06/21 Rx Tiotropium 18 Mcg/Puff [Spiriva] 1 puff INHALATION DAILY #30 each 06/07/21 07/06/21 Rx amLODIPine [Norvasc] 5 mg PO BID #60 tab 06/07/21 07/06/21 Rx carvediloL [Coreg*] 12.5 mg PO BID-W/MEALS #60 tab 06/07/21 07/06/21 Rx Allergies Allergy/AdvReac Type Severity Reaction Status Date / Time No Known Allergies Allergy Verified 07/06/21 07:06 Physical Exam Vitals: Vital Signs Temp Pulse Pulse Pulse Pulse Resp BP 07/07/21 03:55 98.1 F 87 20 07/07/21 02:00 89 07/07/21 01:24 86 07/07/21 00:07 86 07/06/21 23:00 97.6 F 87 22 07/06/21 21:53 92 07/06/21 20:47 93 07/06/21 20:37 87 07/06/21 20:31 07/06/21 20:27 91 07/06/21 20:00 93 07/06/21 19:42 99.1 F 92 20 11/08/21 18:35 92 18 07/06/21 17:35 89 18 07/06/21 16:35 97.6 F 90 18 07/06/21 15:40 78 16 07/06/21 15:25 82 16 07/06/21 15:10 82 16 07/06/21 14:55 84 16 07/06/21 13:40 72 18 07/06/21 13:25 76 18 07/06/21 13:10 67 18 07/06/21 12:55 80 16 07/06/21 12:40 81 20 07/06/21 12:25 84 19 157/72 07/06/21 12:10 76 18 155/88 07/06/21 11:55 74 18 162/92 07/06/21 11:40 86 18 180/82 07/06/21 11:25 84 18 158/82 07/06/21 11:10 987 F H 83 16 153/94 BP BP BP Pulse Ox 07/07/21 03:55 159/82 95 07/07/21 02:00 143/76 07/07/21 01:24 07/07/21 00:07 154/84 07/06/21 23:00 138/77 97 07/06/21 21:53 150/82 07/06/21 20:47 148/92 07/06/21 20:37 07/06/21 20:31 94 L 07/06/21 20:27 07/06/21 20:00 07/06/21 19:42 153/83 97 07/06/21 18:35 148/81 91 L 07/06/21 17:35 151/87 92 L 07/06/21 16:35 151/87 91 L 07/06/21 15:40 160/93 92 L 07/06/21 15:25 158/92 92 L 07/06/21 15:10 158/89 93 L 07/06/21 14:55 152/86 93 L 07/06/21 13:40 178/74 170/88 95 07/06/21 13:25 170/88 156/77 95 07/06/21 13:10 166/86 168/74 95 07/06/21 12:55 177/93 177/76 94 L 07/06/21 12:40 157/72 164/74 94 L 07/06/21 12:25 162/74 94 L 07/06/21 12:10 160/70 94 L 07/06/21 11:55 170/80 94 L 07/06/21 11:40 190/94 94 L 07/06/21 11:25 98 07/06/21 11:10 95 Intake and Output 07/06/21 07/07/21 07/07/21 22:59 06:59 14:59 Intake Total 218 Output Total 1260 1700 Balance -1042 -1700 Intake: IV 20 Invasive Line 1 10 Invasive Line 2 10 Intake, IV Titration 80 Amount Sodium Chloride 0.9% 1, 80 000 ml @ 80 mls/hr IV . [id number] [facility] Rx#:[id number] Oral 118 Output: Urine 1260 1650 Uretheral (Tam) 760 800 Post Void Residual 50 Other: Voiding Method Toilet Urinal # Voids 1 2 Weight 111.2 kg 102.6 kg Results - Lab Results Most recent lab results Calcium 8.3 mg/dL (8.4-10.2) L 07/07/21 05:56 Magnesium 0.9 mg/dL (1.6-2.3) L* 07/07/21 05:56 07/06/21 06:23 07/07/21 05:56 Assessment and Plan Plan: Assessment: 1. 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 GFR near baseline. 2. Status post endovascular infrarenal aortic repair July 06. 3. Hypokalemia secondary to hypomagnesemia. 4. Hypomagnesemia from poor intake. 5. Hypertension with chronic kidney disease. 6. Diabetes mellitus. 7. Coronary disease status post CABG. 8. Tobacco abuse. 9. Urinary retention. Required to straight catheterizations last night. Plan: Decreased rate of normal saline to 50 mL an hour. Potassium and magnesium been replaced. Encourage oral intake. Check UA and renal ultrasound. Add low-dose losartan. Continue to monitor renal function and urine output. Add Flomax. Tam catheter will be inserted if has urinary retention again. Patient will need to follow up outpatient to establish CKD care. Thank you for the consultation. I will continue to follow the patient with you during his hospital stay.
[2021-07-07] MEDS: TAMSULOSIN 0.4 MG CAP.ER.24H PO SCH (09:20)
[2021-07-07] MEDS: ESCITALOPRAM 20 MG TAB PO SCH (09:20)
[2021-07-07] MEDS: allopurinoL 300 MG TAB PO SCH (09:21)
[2021-07-07] MEDS: CLOPIDOGREL 75 MG TAB PO SCH (09:21)
[2021-07-07] MEDS: ASPIRIN 81 MG PO SCH (09:21)
[2021-07-07] MEDS: amLODIPine 5 MG TAB PO SCH ×2 (09:21→22:31)
[2021-07-07] MEDS: ISOSORBIDE MONONITRATE ER 30 MG TAB.ER.24H PO SCH (09:21)
[2021-07-07] MEDS: SODIUM CHLORIDE 0.9% 1,000 ML IV SCH (09:22)
[2021-07-07] MEDS: POTASSIUM CHLORIDE 10 MEQ in WATER FOR INJECTION 1 100ML.BAG IVPB SCH ×4 (09:24→13:48)
[2021-07-07] MEDS: LACTATED RINGERS 1,000 ML IV SCH (09:29)
[2021-07-07] MEDS: LOSARTAN 25 MG TAB PO SCH (09:30)
--- NOTE | 2021-07-07 10:59 | US ---
EXAMINATION TYPE: US kidneys/renal and bladder DATE OF EXAM: 07/07/2021 COMPARISON: Correlation CTA 06/06/2021 CLINICAL HISTORY: 60 year-old male acute kidney injury, hypertension, DM, Abnormal Robert TECHNIQUE: Multiple sonographic images of the kidneys and bladder are obtained. FINDINGS: EXAM MEASUREMENTS: Right Kidney: 10.0 x 4.9 x 4.7 cm Left Kidney: 11.3 x 5.9 x 5.3 c Right Kidney: No hydronephrosis or masses seen Left Kidney: No hydronephrosis or masses seen Bladder: wnl Bilateral Jets seen: Yes The patient 6.6 cm fusiform AAA and 3.8 cm fusiform right common iliac artery aneurysm and 2.3 cm lef t common iliac artery aneurysm are not visualized on the present exam. IMPRESSION: 1. No hydronephrosis. 2. Known 6.6 cm AAA and aneurysms of the common iliac arteries measuring up to 3.8 cm are not seen on the current exam.
[2021-07-07] MEDS: IPRATROPIUM 0.5 MG/2.5 ML NEBU INHALATION SCH ×4 (11:03→19:46)
[2021-07-07] MEDS: ALBUTEROL NEBULIZED 2.5 MG/3 ML INHALATION SCH ×2 (11:03→19:46)
--- NOTE | 2021-07-07 11:03 | P.PN ---
Subjective Progress Note Date: 07/07/21 Principal diagnosis: Abdominal aortic aneurysm with bilateral common iliac artery aneurysm This a 60-year-old male with a past medical history of COPD exacerbation that was found on his previous hospitalization to have a large abdominal aortic aneurysm and bilateral common iliac artery aneurysms. His CT angiogram demonstrated a 6.6 cm abdominal aortic aneurysm with bilateral common iliac artery aneurysms. Yesterday he underwent to 10 units endovascular aortic repair with bilateral iliac artery selective angiograms and strands catheter enhanced fixation 7. Today he states overall he is feeling okay other than having some difficulty with urination and has had to have a straight cathed 1 since Tam catheter was removed. Patient is requiring 4 L of oxygen per nasal cannula. He states he has no increased shortness of breath other than his normal as well as no chest pain. He denies any abdominal pain other than some distention from his urinary retention. No pain at the groins. He is able to move bilateral lower extremities. Morning labs showed sodium 137 potassium 2.6 chloride 97 CO2 30 to be 1 was 20 creatinine 1.73 glucose 157 calcium 8.3 magnesium 0.9. Medicine team has ordered replacement of potassium and magnesium with repeat labs this afternoon. Nephrology has seen patient for chronic kidney disease. And is to reinsert Tam catheter if patient has continued urinary retention as well as adding Flomax. There are also adding a low-dose losartan. Objective - Vital Signs Vital signs: Vital Signs Temp 98.1 F 07/07/21 03:55 Pulse 87 07/07/21 03:55 Resp 20 07/07/21 03:55 BP 159/82 07/07/21 03:55 Pulse Ox 95 07/07/21 03:55 Intake & Output 07/06/21 07/07/21 07/07/21 18:59 06:59 18:59 Intake Total 2343 Output Total 2775 1700 Balance -432 -1700 Weight 111.2 kg 102.6 kg Intake: IV 2145 Invasive Line 1 10 Invasive Line 2 10 Intake, IV Titration 80 Amount Sodium Chloride 0.9% 1, 80 000 ml @ 80 mls/hr IV . [id number] [facility] Rx#:[id number] Oral 118 Output: Urine 2775 1650 Uretheral (Tam) 760 800 Post Void Residual 50 Other: Voiding Method Indwelling Catheter Toilet Urinal # Voids 2 - Exam General appearance: The patient is alert, oriented, appears in no acute distress. HET: Head is normocephalic and atraumatic. . Neck: Supple without lymphadenopathy. Trachea midline. Heart: S1 S2. Regular rate and rhythm. Lungs: Normal expansion. Bilateral scattered wheezes. Abdomen: Soft, nontender, nondistended. Extremities: Normal skin color and turgor. Access sites to bilateral groins with dressing clean dry and intact. K bilateral lower extremities warm to the touch with good capillary refill. Patient has palpable DP pulses bilaterally. Neurological: No focal deficits. Strength and sensation are grossly intact. - Labs CBC & Chem 7: 07/06/21 06:23 07/07/21 05:56 Labs: Abnormal Lab Results - Last 24 Hours (Table) 07/06/21 07/06/21 07/06/21 Range/Units 12:32 15:23 16:35 Potassium (3.5-5.1) mmol/L Chloride (98-107) mmol/L Carbon Dioxide (22-30) mmol/L Creatinine (0.66-1.25) mg/dL Glucose (74-99) mg/dL POC Glucose (mg/dL) 135 H 154 H 164 H (75-99) mg/dL Calcium (8.4-10.2) mg/dL Magnesium (1.6-2.3) mg/dL 07/06/21 07/07/21 07/07/21 Range/Units 20:15 05:56 06:11 Potassium 2.6 L* (3.5-5.1) mmol/L Chloride 97 L (98-107) mmol/L Carbon Dioxide 32 H (22-30) mmol/L Creatinine 1.73 H (0.66-1.25) mg/dL Glucose 157 H (74-99) mg/dL POC Glucose (mg/dL) 183 H 553 H (75-99) mg/dL Calcium 8.3 L (8.4-10.2) mg/dL Magnesium 0.9 L* (1.6-2.3) mg/dL 07/07/21 Range/Units 06:12 Potassium (3.5-5.1) mmol/L Chloride (98-107) mmol/L Carbon Dioxide (22-30) mmol/L Creatinine (0.66-1.25) mg/dL Glucose (74-99) mg/dL POC Glucose (mg/dL) 173 H (75-99) mg/dL Calcium (8.4-10.2) mg/dL Magnesium (1.6-2.3) mg/dL Assessment and Plan Assessment: 1. Asymptomatic infrarenal 6.5 cm abdominal aortic with bilateral iliac artery aneurysms, Postop day #1 for cutaneous endovascular aortic repair, bilateral iliac arteries selective angiograms with Apthus tanscatheter enhanced fixation 2. Hypokalemia 3. Hypo-magnesium 4. Chronic COPD on home O2 5. Chronic kidney disease 6. Urinary retention 7. Tobacco abuse Plan: 1. Medicine team on consult for medical management 2. Pulmonology on consult for COPD appreciate their recommendations 3. Nephrology on consult for chronic kidney disease, appreciate their recommendations 4. Replace potassium and magnesium 5. Repeat CBC, BMP in the morning 6. Incentive spirometer to the bedside 7. Encourage ambulation 8. Agree with recommendation for indwelling Tam catheter if patient continues with urinary retention and inability to urinate 9. Tobacco cessation The impression and plan of care has been dictated as directed. Dr. Thompson I performed a history and examination of this patient, discussed the same with the dictator. I agree with the dictator's note ,documented as a scribe. Any additional findings or plans will be noted.
[2021-07-07] MEDS ORDERED: MAG HYDROX/AL HYDROX/SIMETH 30 ML CUP PO PRN (12:45)
[2021-07-07 12:48] LABS: Glucose,Whole Blood 196 mg/dL (75-99)
[2021-07-07 13:29] LABS: Appearance,Urine Clear (Clear); Bilirubin,Urine Negative (Negative); Blood,Urine Moderate (Negative); Color,Urine Yellow; Glucose,Urine (UA) Negative (Negative); Ketones,Urine Negative (Negative); Leukocyte Esterase,Urine Negative (Negative); Nitrite,Urine Negative (Negative); Protein,Urine 1+ (Negative); RBC,Urine 1 /hpf (0-5); Specific Gravity,Urine 1.024 (1.001-1.035); Urobilinogen,Urine <2.0 mg/dL (<2.0); WBC,Urine 3 /hpf (0-5)
[2021-07-07] MEDS: ONDANSETRON 4 MG/2 ML VIAL IVP PRN (14:42)
--- NOTE | 2021-07-07 15:25 | XR ---
EXAMINATION TYPE: XR chest 1V portable DATE OF EXAM: 07/07/2021 Comparison: 06/01/2021 Clinical History: 60-year-old male shortness of breath Findings: Median sternotomy wires. Heart is enlarged. Diffuse interstitial and vascular prominence. Patchy biba silar opacities. Impression: Cardiomegaly with interstitial changes and patchy bibasilar opacities. Correlate for CHF and possible early basilar pulmonary edema. Pneumonia should be excluded on a clinical basis.
[2021-07-07 16:57] LABS: Glucose,Whole Blood 236 mg/dL (75-99)
--- NOTE | 2021-07-07 17:05 | P.CNPUL ---
History of Present Illness Consult date: 07/07/21 Reason for consult: COPD History of present illness: Visit 60-year-old male patient with known history of severe COPD and a chronic smoker. He has chronic hypoxic respiratory failure and the patient has been oxygen dependent. The baseline FEV1 is been in the order of 30% of predicted which was at 1.1 L. At the same time the patient had some restrictive lung disease with a total lung capacity of 60% of predicted and diffusion capacity of 29% of predicted. The patient does not have any maintenance form of respiratory medications regarding his COPD. He was supposed to be on Spiriva which is currently on affordable by the patient. Is very likely need an albuterol treatments to her nebulizer on an as-needed basis. The patient also known to have coronary artery disease, presents bypass surgery, chronic kidney disease, type 2 diabetes mellitus the patient is also known to have a asymmetric infrarenal abdominal aortic aneurysm measuring 6.5 cm in size and bilateral iliac artery aneurysms. The patient underwent percutaneous endovascular aortic repair of the aneurysm and surgery was done on 07/06/2021. Surgery was essentially uncomplicated. Surgical wound site over the groin areas dry clean and intact at this point in time. On today's evaluation, the patient is postop day #1. He remains on [address] by nasal cannula. Most of the shortness of breath above and beyond his baseline. He has chronic kidney disease and nephr ology is already evaluated the patient. Creatinines remain stable at 1.7. He was having some issues with urinary retention. A Tam catheter was inserted for underlying urinary retention and he was started on Flomax. His blood pressure was noted to be elevated and he was started on losartan by the medical team. Otherwise, he is using incentive spirometer. Limited cough and congestion. He has chronic exertional dyspnea which has remained unchanged and there is no evidence of an underlying COPD exacerbation. A chest x-ray was also done today and showed cardiomegaly and some patchy bibasilar pulmonary infiltrates and vascular congestion. Underlying interstitial edema cannot be completely excluded. He is on oxygen at 4 L for now with a pulse ox of 94%. No angina. No palpitations. Review of Systems Constitutional: Reports chills, Reports daytime sleepiness, Reports fatigue, Reports fever, Reports weight gain Eyes: denies as per HPI, denies blurred vision, denies bulging eye, denies decreased vision, denies diplopia, denies discharge, denies dry eye, denies irritation, denies itching, denies pain, denies photophobia, denies loss of peripheral vision, denies loss of vision, denies tunnel vision/blind spots Ears: deny: decreased hearing, ear discharge, earache, tinnitus Ears, nose, mouth and throat: Reports as per HPI Breasts: absent: as per HPI, gynecomastia Cardiovascular: Reports decreased exercise tolerance, Reports dyspnea on exertion, Reports shortness of breath Respiratory: Reports cough, Reports dyspnea, Reports wheezing Gastrointestinal: Reports as per HPI, Reports constipation Musculoskeletal: Reports as per HPI Musculoskeletal: absent: ankle pain, ankle stiffness, ankle swelling Integumentary: Reports as per HPI Neurological: Reports as per HPI Psychiatric: Reports as per HPI Endocrine: Reports as per HPI Hematologic/Lymphatic: Reports as per HPI Allergic/Immunologic: Reports as per HPI Past Medical History Past Medical History: COPD, Diabetes Mellitus, Hyperlipidemia, Myocardial Infarction ([place]) Additional Past Medical History / Comment(s): rheumatic fever as kid Last Myocardial Infarction Date:: History of Any Multi-Drug Resistant Organisms: None Reported Past Surgical History: Appendectomy, Coronary Bypass/CABG, Heart Catheterization With Stent Past Anesthesia/Blood Transfusion Reactions: No Reported Reaction Date of Last Stent Placement:: of date Past Psychological History: No Psychological Hx Reported Smoking Status: Current every day smoker Past Alcohol Use History: None Reported Additional Past Alcohol Use History / Comment(s): pt smokes a pack/ day Past Drug Use History: None Reported - Past Family History Father Family Medical History: Hypertension Medications and Allergies Home Medications Medication Instructions Recorded Confirmed Type Allopurinol [Zyloprim] 300 mg PO DAILY 06/01/21 07/06/21 History Aspirin EC [Ecotrin Low Dose] 81 mg PO DAILY 06/01/21 07/06/21 History Clopidogrel [Plavix] 75 mg PO DAILY 06/01/21 07/06/21 History Escitalopram [Lexapro] 20 mg PO DAILY 06/01/21 07/06/21 History HYDROcodone/APAP 7.5-325MG [[place] 1 tab PO QID PRN 06/01/21 07/06/21 History 7.5-325] Insulin Detemir (Levemir) [Levemir] 10 units SQ DAILY 06/01/21 07/06/21 History Insulin Detemir (Levemir) [Levemir] 42 units SQ HS 06/01/21 07/06/21 History Isosorbide Mononitrate ER [Imdur] 30 mg PO DAILY 06/01/21 07/06/21 History Nitroglycerin Sl Tabs [Nitrostat] 0.4 mg SL Q5M PRN 06/01/21 07/06/21 History Omeprazole 20 mg PO DAILY 06/01/21 07/06/21 History Pioglitazone [Actos] 30 mg PO DAILY 06/01/21 07/06/21 History Albuterol Inhaler [Ventolin Hfa 1 puff INHALATION RT-TID #8 gm 06/07/21 07/06/21 Rx Inhaler] Atorvastatin [Lipitor] 80 mg PO HS #30 tab 06/07/21 07/06/21 Rx Tiotropium 18 Mcg/Puff [Spiriva] 1 puff INHALATION DAILY #30 each 06/07/21 07/06/21 Rx amLODIPine [Norvasc] 5 mg PO BID #60 tab 06/07/21 07/06/21 Rx carvediloL [Coreg*] 12.5 mg PO BID-W/MEALS #60 tab 06/07/21 07/06/21 Rx Allergies Allergy/AdvReac Type Severity Reaction Status Date / Time No Known Allergies Allergy Verified 07/06/21 07:06 Physical Exam Vitals: Vital Signs Temp Pulse Pulse Pulse Resp BP BP 07/07/21 15:39 88 07/07/21 15:33 84 07/07/21 12:00 98.3 F 90 18 136/73 07/07/21 11:13 80 07/07/21 11:04 88 07/07/21 08:00 98.2 F 84 18 147/82 07/07/21 03:55 98.1 F 87 20 159/82 07/07/21 02:00 89 143/76 07/07/21 01:24 86 07/07/21 00:07 86 154/84 07/06/21 23:00 97.6 F 87 22 138/77 07/06/21 21:53 92 150/82 07/06/21 20:47 93 148/92 07/06/21 20:37 87 07/06/21 20:31 07/06/21 20:27 91 07/06/21 20:00 93 07/06/21 19:42 99.1 F 92 20 153/83 07/06/21 18:35 92 18 148/81 07/06/21 17:35 89 18 151/87 Pulse Ox 07/07/21 15:39 07/07/21 15:33 07/07/21 12:00 94 L 07/07/21 11:13 07/07/21 11:04 07/07/21 08:00 92 L 07/07/21 03:55 95 07/07/21 02:00 07/07/21 01:24 07/07/21 00:07 07/06/21 23:00 97 07/06/21 21:53 07/06/21 20:47 07/06/21 20:37 07/06/21 20:31 94 L 07/06/21 20:27 07/06/21 20:00 07/06/21 19:42 97 07/06/21 18:35 91 L 07/06/21 17:35 92 L Intake and Output 07/07/21 07/07/21 07/07/21 06:59 14:59 22:59 Intake Total 880 Output Total 1700 Balance -1700 880 Intake: IV 40 Invasive Line 1 20 Invasive Line 2 20 Oral 840 Output: Urine 1650 Uretheral (Tam) 800 Post Void Residual 50 Other: # Voids 2 Weight 102.6 kg General appearance: The patient is alert, oriented, appears in no acute distress. Head exam was generally normal. There was no scleral icterus or corneal arcus. Mucous membranes were moist. Neck was supple and without jugular venous distension, thyromegaly, or carotid bruits. Carotids were easily palpable bilaterally. There was no adenopathy.. Cardiac exam revealed the PMI to be normally situated and sized. The rhythm was regular and no extrasystoles were noted during several minutes of auscultation. The first and second heart sounds were normal and physiologic splitting of the second heart sound was noted. There were no murmurs, rubs, clicks, or gallops. Lungs: Normal expansion. Bilateral scattered wheezes.Scattered rhonchi heard throughout the lung his bilaterally. The patient diminished breath sounds bilaterally and there is also prolongation of the escalation phase of breathing. Abdominal exam revealed normal bowel sounds. The abdomen was soft, non-tender, and without masses, organomegaly, or appreciable enlargement of the abdominal aorta. Extremities: Normal skin color and turgor. Access sites to bilateral groins with dressing clean dry and intact. K bilateral lower extremities warm to the touch with good capillary refill. Patient has palpable DP pulses bilaterally. Neurological: No focal deficits. Strength and sensation are grossly intact. Results - Laboratory Findings CBC and BMP: 07/06/21 06:23 07/07/21 05:56 Abnormal lab findings: Abnormal Labs 07/06/21 07/06/21 07/06/21 06:23 06:23 06:48 WBC 10.7 H Neutrophils # 8.5 H Potassium 2.9 L Chloride Carbon Dioxide 32 H Creatinine 1.69 H Glucose 176 H POC Glucose (mg/dL) 168 H Calcium Magnesium Urine Protein Urine Blood 07/06/21 07/06/21 07/06/21 12:32 15:23 16:35 WBC Neutrophils # Potassium Chloride Carbon Dioxide Creatinine Glucose POC Glucose (mg/dL) 135 H 154 H 164 H Calcium Magnesium Urine Protein Urine Blood 07/06/21 07/07/21 07/07/21 20:15 05:56 06:11 WBC Neutrophils # Potassium 2.6 L* Chloride 97 L Carbon Dioxide 32 H Creatinine 1.73 H Glucose 157 H POC Glucose (mg/dL) 183 H 553 H Calcium 8.3 L Magnesium 0.9 L* Urine Protein Urine Blood 07/07/21 07/07/21 07/07/21 06:12 10:38 12:46 WBC Neutrophils # Potassium Chloride Carbon Dioxide Creatinine Glucose POC Glucose (mg/dL) 173 H 196 H Calcium Magnesium Urine Protein 1+ H Urine Blood Moderate H - Diagnostic Findings Chest x-ray: image reviewed Assessment and Plan Plan: 1 asymptomatic abdominal aortic and and the patient is status post percutaneous endovascular aortic repair, postop day #1 2 COPD with FEV1 of 30% of predicted 3 chronic hypoxic respiratory failure secondary to above currently on [address] by nasal cannula and there may be component of mild pulmonary vascular congestion on chest x-ray 4 obesity 5 coronary artery disease presents bypass surgery 6 hypertension 7 hyperlipidemia 8 diabetes mellitus 9 chronic kidney disease stage III 10 acute urinary retention currently has a Tam catheter in place Plan Pulmonary status is stable Use incentive spirometer IV fluids to KVO Monitor renal function Monitor oxygenation and the patient has home O2 Avoid utilization of Spiriva due to urinary retention May benefit from addition of a Breo or Symbicort on outpatient basis regarding his COPD in combination with albuterol updrafts [id number] on an as-needed basis Smoking cessation counseling Resume medications Management of urinary retention and Flomax has been added Replace electrolytes We'll see him on an as-needed basis
[2021-07-07] MEDS ORDERED: CALCIUM CARBONATE 500 MG CHEWABLE PO PRN (17:19)
--- NOTE | 2021-07-07 17:59 | P.PN ---
Subjective Progress Note Date: 07/07/21 Principal diagnosis: AAA Patient is a 60 yo CM with a hx of COPD, AAA, and CKD who presented to elective AAA repair. He has electrolyte disturbances this morning. Patient seen and examined at bedside. + nausea, no belly pain, no diarrhea. No chest pain, SOB General: non toxic, no distress, appears at stated age Derm: warm, dry Head: atraumatic, normocephalic, symmetric Eyes: EOMI, no lid lag, anicteric sclera Mouth: no lip lesion, mucus membranes moist Cardiovascular: S1S2 reg, no murmur, positive posterior tibial pulse bilateral, Lungs: Course bs bilateral, no rhonchi, no rales, no accessory muscle use Abdominal: soft, nontender to palpation, no guarding, no appreciable organomegaly Ext: no gross muscle atrophy, no edema, no contractures Neuro: CN II-XI grossly intact, no focal neuro deficits Psych: Alert, oriented, appropriate affect Infrarenal AAA status post repair Your vascular surgery management COPD on home O2 4 L Patient currently satting well on his home O2 Pulmonary consult placed by primary team Nausea and heart burn - prn zofran - tums CKD stage III - nephrology recs - on IVF Hypokalemia and hypomagnesemia - replace and recheck Diabetes mellitus - patient with nausea - Start Levemir at 10 tonight - SSI, follow BS Chronic conditions Coronary disease status post CABG, hypertension and hyperlipidemia Resume home meds Thank you for allowing us to participate in the care of this pleasant patient. Do not hesitate to contact us with questions. Someone can be reached from the [facility] hospitalist group all hours of the day at [phone] or via perfect serve. Objective - Vital Signs Vital signs: Vital Signs Temp 97.9 F 07/07/21 16:00 Pulse 83 07/07/21 16:00 Resp 18 07/07/21 16:00 BP 115/70 07/07/21 16:00 Pulse Ox 95 07/07/21 16:00 Intake & Output 07/06/21 07/07/21 07/07/21 18:59 06:59 18:59 Intake Total 2343 900 Output Total 2775 1700 Balance -432 -1700 900 Weight 111.2 kg 102.6 kg Intake: IV 2145 60 Invasive Line 1 10 30 Invasive Line 2 10 30 Intake, IV Titration 80 Amount Sodium Chloride 0.9% 1, 80 000 ml @ 80 mls/hr IV . [id number] [facility] Rx#:[id number] Oral 118 840 Output: Urine 2775 1650 Uretheral (Tam) 760 800 Post Void Residual 50 Other: Voiding Method Indwelling Catheter Toilet Urinal # Voids 2 - Labs CBC & Chem 7: 07/06/21 06:23 07/07/21 05:56 Labs: Abnormal Lab Results - Last 24 Hours (Table) 07/06/21 07/07/21 07/07/21 Range/Units 20:15 05:56 06:11 Potassium 2.6 L* (3.5-5.1) mmol/L Chloride 97 L (98-107) mmol/L Carbon Dioxide 32 H (22-30) mmol/L Creatinine 1.73 H (0.66-1.25) mg/dL Glucose 157 H (74-99) mg/dL POC Glucose (mg/dL) 183 H 553 H (75-99) mg/dL Calcium 8.3 L (8.4-10.2) mg/dL Magnesium 0.9 L* (1.6-2.3) mg/dL Urine Protein (Negative) Urine Blood (Negative) 07/07/21 07/07/21 07/07/21 Range/Units 06:12 10:38 12:46 Potassium (3.5-5.1) mmol/L Chloride (98-107) mmol/L Carbon Dioxide (22-30) mmol/L Creatinine (0.66-1.25) mg/dL Glucose (74-99) mg/dL POC Glucose (mg/dL) 173 H 196 H (75-99) mg/dL Calcium (8.4-10.2) mg/dL Magnesium (1.6-2.3) mg/dL Urine Protein 1+ H (Negative) Urine Blood Moderate H (Negative) 07/07/21 Range/Units 16:55 Potassium (3.5-5.1) mmol/L Chloride (98-107) mmol/L Carbon Dioxide (22-30) mmol/L Creatinine (0.66-1.25) mg/dL Glucose (74-99) mg/dL POC Glucose (mg/dL) 236 H (75-99) mg/dL Calcium (8.4-10.2) mg/dL Magnesium (1.6-2.3) mg/dL Urine Protein (Negative) Urine Blood (Negative)
[2021-07-07] MEDS: PANTOPRAZOLE 40 MG TABLET PO SCH (18:06)
[2021-07-07 18:21] LABS: Calcium 8.6 mg/dL (8.4-10.2); Magnesium 2.1 mg/dL (1.6-2.3); Potassium 3.6 mmol/L (3.5-5.1)
[2021-07-07 20:04] LABS: Glucose,Whole Blood 141 mg/dL (75-99)
[2021-07-07] MEDS: ATORVASTATIN 80 MG TAB PO SCH (22:31)
[2021-07-07] MEDS: INSULIN DETEMIR (LEVEMIR) 100 UNIT/ML SYR SQ SCH (22:32)
[2021-07-08 06:06] LABS: Glucose,Whole Blood 158 mg/dL (75-99)
[2021-07-08] MEDS: PANTOPRAZOLE 40 MG TABLET PO SCH ×2 (06:46→16:31)
[2021-07-08] MEDS: INSULIN ASPART (NovoLOG) 100 UNIT/ML VIAL SQ SCH ×4 (06:46→20:42)
[2021-07-08 07:53] LABS: Calcium 8.4 mg/dL (8.4-10.2); Magnesium 1.7 mg/dL (1.6-2.3); Potassium 3.1 mmol/L (3.5-5.1)
[2021-07-08] MEDS: IPRATROPIUM 0.5 MG/2.5 ML NEBU INHALATION SCH ×4 (08:41→19:05)
[2021-07-08] MEDS: ALBUTEROL NEBULIZED 2.5 MG/3 ML INHALATION SCH ×3 (08:41→19:05)
[2021-07-08] MEDS ORDERED: POTASSIUM CHLORIDE ER 20 MEQ TAB.ER PO STA (09:24)
[2021-07-08] MEDS ORDERED: MAGNESIUM SULFATE-D5W PMX 1 GM in DEXTROSE/WATER 1 100ML.BAG IVPB ONE (09:24)
--- NOTE | 2021-07-08 09:25 | P.PN ---
Subjective Patient is seen in follow-up for acute kidney injury on chronic kidney disease. Renal function is stable. Nonoliguric. Has a Tam catheter for urinary retention. Denies chest pain or shortness of breath. Vital signs are stable. General: The patient appeared well nourished and normally developed. HEENT: Head exam is unremarkable. LUNGS: Breath sounds decreased. HEART: Rate and Rhythm are regular. ABDOMEN: Soft, no distention. EXTREMITITES: No edema. Objective - Vital Signs Vital signs: Vital Signs Temp 98 F 07/08/21 03:07 Pulse 92 07/08/21 09:00 Resp 20 07/08/21 03:07 BP 104/70 07/08/21 03:07 Pulse Ox 92 L 07/08/21 03:07 Intake & Output 07/07/21 07/08/21 07/08/21 18:59 06:59 18:59 Intake Total 1160 20 Output Total 650 Balance 510 20 Weight 103.5 kg Intake: IV 60 20 Invasive Line 1 30 20 Invasive Line 2 30 Oral 1100 Output: Urine 650 Uretheral (Tam) 450 Other: Voiding Method Indwelling Catheter - Labs CBC & Chem 7: 07/06/21 06:23 07/08/21 06:24 Labs: Abnormal Lab Results - Last 24 Hours (Table) 07/07/21 07/07/21 07/07/21 Range/Units 10:38 12:46 16:55 Sodium (137-145) mmol/L Potassium (3.5-5.1) mmol/L Chloride (98-107) mmol/L Carbon Dioxide (22-30) mmol/L Creatinine (0.66-1.25) mg/dL Glucose (74-99) mg/dL POC Glucose (mg/dL) 196 H 236 H (75-99) mg/dL Urine Protein 1+ H (Negative) Urine Blood Moderate H (Negative) 07/07/21 07/07/21 07/08/21 Range/Units 17:43 20:02 06:03 Sodium 134 L (137-145) mmol/L Potassium (3.5-5.1) mmol/L Chloride (98-107) mmol/L Carbon Dioxide (22-30) mmol/L Creatinine 1.55 H (0.66-1.25) mg/dL Glucose 166 H (74-99) mg/dL POC Glucose (mg/dL) 141 H 158 H (75-99) mg/dL Urine Protein (Negative) Urine Blood (Negative) 07/08/21 Range/Units 06:24 Sodium 134 L (137-145) mmol/L Potassium 3.1 L (3.5-5.1) mmol/L Chloride 97 L (98-107) mmol/L Carbon Dioxide 31 H (22-30) mmol/L Creatinine 1.57 H (0.66-1.25) mg/dL Glucose 144 H (74-99) mg/dL POC Glucose (mg/dL) (75-99) mg/dL Urine Protein (Negative) Urine Blood (Negative) Assessment and Plan Plan: Assessment: 1. 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 GFR near baseline. No hydronephrosis noted on kidney ultrasound. 2. Status post endovascular infrarenal aortic repair July 06. 3. Hypokalemia secondary to hypomagnesemia. 4. Hypomagnesemia from poor intake. Replaced. Better. 5. Hypertension with chronic kidney disease. 6. Diabetes mellitus. 7. Coronary disease status post CABG. 8. Tobacco abuse. 9. Urinary retention. Has a Tam catheter. On Flomax. Plan: Hep-Lock IV fluids. Decrease dose of amlodipine to 5 mg once today. To be held for systolic blood pressure less than 120. Replace potassium and magnesium. Encourage oral intake. Continue to monitor renal function and urine output. Patient will need to follow up outpatient to establish CKD care.
[2021-07-08] MEDS: TAMSULOSIN 0.4 MG CAP.ER.24H PO SCH (09:50)
[2021-07-08] MEDS: CLOPIDOGREL 75 MG TAB PO SCH (09:50)
[2021-07-08] MEDS: allopurinoL 300 MG TAB PO SCH (09:50)
[2021-07-08] MEDS: ESCITALOPRAM 20 MG TAB PO SCH (09:50)
[2021-07-08] MEDS: ISOSORBIDE MONONITRATE ER 30 MG TAB.ER.24H PO SCH (09:50)
[2021-07-08] MEDS: ASPIRIN 81 MG PO SCH (09:50)
[2021-07-08] MEDS: SODIUM CHLORIDE 0.9% 1,000 ML IV SCH (09:51)
[2021-07-08] MEDS: amLODIPine 5 MG TAB PO SCH (09:51)
[2021-07-08] MEDS: ONDANSETRON 4 MG/2 ML VIAL IVP PRN (09:51)
--- NOTE | 2021-07-08 11:57 | P.PN ---
Subjective Progress Note Date: 07/08/21 Principal diagnosis: Abdominal aortic aneurysm with bilateral common iliac artery aneurysm This a 60-year-old male with a past medical history of COPD exacerbation that was found on his previous hospitalization to have a large abdominal aortic aneurysm and bilateral common iliac artery aneurysms. His CT angiogram demonstrated a 6.6 cm abdominal aortic aneurysm with bilateral common iliac artery aneurysms. He is status post endovascular repair of abdominal aortic aneurysm with bilateral common iliac artery aneurysm. Yesterday potassium and magnesium replaced. Today he states he's feeling better. He does have a indwelling Tam catheter due to urinary retention good urine output. He remains on Flomax. Nephrology is following closely. He is up in to the bathroom. Pulmonology had seen patient with some recommendations and medication changes. Nephrology remains on consult replacing potassium and magnesium today. Today's repeat sodium 134 potassium 3.1 BUN 18 creatinine 1.7 magnesium 1.7. He is afebrile, maintenance on 4 L of nasal cannula last oxygen saturation 90%. Objective - Vital Signs Vital signs: Vital Signs Temp 98.8 F 07/08/21 07:15 Pulse 92 07/08/21 09:00 Resp 20 07/08/21 07:15 BP 101/62 07/08/21 07:15 Pulse Ox 90 L 07/08/21 07:15 Intake & Output 07/07/21 07/08/21 07/08/21 18:59 06:59 18:59 Intake Total 1160 20 260 Output Total 650 800 Balance 510 20 -540 Weight 103.5 kg Intake: IV 60 20 20 Invasive Line 1 30 20 10 Invasive Line 2 30 10 Oral 1100 240 Output: Urine 650 800 Uretheral (Tam) 450 800 Other: Voiding Method Indwelling Catheter Indwelling Catheter - Exam General appearance: The patient is alert, oriented, appears in no acute di stress. HET: Head is normocephalic and atraumatic. . Neck: Supple without lymphadenopathy. Trachea midline. Heart: S1 S2. Regular rate and rhythm. Lungs: Normal expansion. Bilateral scattered wheezes. Abdomen: Soft, nontender, nondistended. Extremities: Normal skin color and turgor. Access sites to bilateral groins with dressing clean dry and intact. K bilateral lower extremities warm to the touch with good capillary refill. Patient has palpable DP pulses bilaterally. Neurological: No focal deficits. Strength and sensation are grossly intact. - Labs CBC & Chem 7: 07/06/21 06:23 07/08/21 06:24 Labs: Abnormal Lab Results - Last 24 Hours (Table) 07/07/21 07/07/21 07/07/21 Range/Units 10:38 12:46 16:55 Sodium (137-145) mmol/L Potassium (3.5-5.1) mmol/L Chloride (98-107) mmol/L Carbon Dioxide (22-30) mmol/L Creatinine (0.66-1.25) mg/dL Glucose (74-99) mg/dL POC Glucose (mg/dL) 196 H 236 H (75-99) mg/dL Urine Protein 1+ H (Negative) Urine Blood Moderate H (Negative) 07/07/21 07/07/21 07/08/21 Range/Units 17:43 20:02 06:03 Sodium 134 L (137-145) mmol/L Potassium (3.5-5.1) mmol/L Chloride (98-107) mmol/L Carbon Dioxide (22-30) mmol/L Creatinine 1.55 H (0.66-1.25) mg/dL Glucose 166 H (74-99) mg/dL POC Glucose (mg/dL) 141 H 158 H (75-99) mg/dL Urine Protein (Negative) Urine Blood (Negative) 07/08/21 Range/Units 06:24 Sodium 134 L (137-145) mmol/L Potassium 3.1 L (3.5-5.1) mmol/L Chloride 97 L (98-107) mmol/L Carbon Dioxide 31 H (22-30) mmol/L Creatinine 1.57 H (0.66-1.25) mg/dL Glucose 144 H (74-99) mg/dL POC Glucose (mg/dL) (75-99) mg/dL Urine Protein (Negative) Urine Blood (Negative) Assessment and Plan Assessment: 1. Asymptomatic infrarenal 6.5 cm abdominal aortic with bilateral iliac artery aneurysms, Postop day #1 for cutaneous endovascular aortic repair, bilateral iliac arteries selective angiograms with Apthus tanscatheter enhanced fixation 2. Hypokalemia 3. Hypo-magnesium 4. Chronic COPD on home O2 5. Chronic kidney disease 6. Urinary retention 7. Tobacco abuse Plan: 1. Medicine team on consult for medical management 2. Pulmonology on consult for COPD appreciate their recommendations 3. Nephrology on consult for chronic kidney disease, appreciate their recommendations 4. Replace potassium and magnesium 5. Repeat CBC, BMP in the morning 6. Incentive spirometer to the bedside 7. Encourage ambulation 8. Agree with recommendation for indwelling Tam catheter 9. Tobacco cessation The impression and plan of care has been dictated as directed. Dr. Tam I performed a history and examination of this patient, discussed the same with the dictator. I agree with the dictator's note ,documented as a scribe. Any additional findings or plans will be noted.
[2021-07-08 11:58] LABS: Glucose,Whole Blood 194 mg/dL (75-99)
[2021-07-08] MEDS: LOSARTAN 25 MG TAB PO SCH (12:49)
--- NOTE | 2021-07-08 15:58 | P.GSCN ---
History of Present Illness Consult date: 07/08/21 History of present illness: 60 yo male in the hospital for a percutaneous aortic stent graft. He has had post operative retention and for that reason we were asked to see the patient.The patient is now on flomax but wasnt pre op. He is diabetic, with o2 dependent copd , pvd and cad. He did not have any problems urinating preoperatively. His flow is adequate he only got up once at night. He has minimal post void dribbling. He has no family history of prostate issues. He has not had a rectal examination and some time. Review of Systems All systems: negative - Constitutional Denies fever, Denies weight loss - EENT Eyes: denies blurred vision Ears, nose, mouth and throat: Denies dysphagia - Cardiovascular Denies chest pain, Denies shortness of breath - Respiratory Denies cough, Denies 7 - Gastrointestinal Reports as per HPI - Genitourinary Denies dysuria, Denies hematuria - Integumentary Denies rash, Denies unusual bruising - Neurological Denies headaches, Denies syncope - Hematologic/Lymphatic Denies easy bleeding, Denies easy bruising Past Medical History Past Medical History: COPD, Diabetes Mellitus, Hyperlipidemia, Myocardial Infarction (NH) Additional Past Medical History / Comment(s): rheumatic fever as kid Last Myocardial Infarction Date:: History of Any Multi-Drug Resistant Organisms: None Reported Past Surgical History: Appendectomy, Coronary Bypass/CABG, Heart Catheterization With Stent Past Anesthesia/Blood Transfusion Reactions: No Reported Reaction Date of Last Stent Placement:: of date Past Psychological History: No Psychological Hx Reported Smoking Status: Current every day smoker Past Alcohol Use History: None Reported Additional Past Alcohol Use History / Comment(s): pt smokes a pack/ day Past Drug Use History: None Reported - Past Family History Father Family Medical History: Hypertension Medications and Allergies Home Medications Medication Instructions Recorded Confirmed Type Allopurinol [Zyloprim] 300 mg PO DAILY 06/01/21 07/06/21 History Aspirin EC [Ecotrin Low Dose] 81 mg PO DAILY 06/01/21 07/06/21 History Clopidogrel [Plavix] 75 mg PO DAILY 06/01/21 07/06/21 History Escitalopram [Lexapro] 20 mg PO DAILY 06/01/21 07/06/21 History HYDROcodone/APAP 7.5-325MG [[place] 1 tab PO QID PRN 06/01/21 07/06/21 History 7.5-325] Insulin Detemir (Levemir) [Levemir] 10 units SQ DAILY 06/01/21 07/06/21 History Insulin Detemir (Levemir) [Levemir] 42 units SQ HS 06/01/21 07/06/21 History Isosorbide Mononitrate ER [Imdur] 30 mg PO DAILY 06/01/21 07/06/21 History Nitroglycerin Sl Tabs [Nitrostat] 0.4 mg SL Q5M PRN 06/01/21 07/06/21 History Omeprazole 20 mg PO DAILY 06/01/21 07/06/21 History Pioglitazone [Actos] 30 mg PO DAILY 06/01/21 07/06/21 History Albuterol Inhaler [Ventolin Hfa 1 puff INHALATION RT-TID #8 gm 06/07/21 07/06/21 Rx Inhaler] Atorvastatin [Lipitor] 80 mg PO HS #30 tab 06/07/21 07/06/21 Rx Tiotropium 18 Mcg/Puff [Spiriva] 1 puff INHALATION DAILY #30 each 06/07/21 07/06/21 Rx amLODIPine [Norvasc] 5 mg PO BID #60 tab 06/07/21 07/06/21 Rx carvediloL [Coreg*] 12.5 mg PO BID-W/MEALS #60 tab 06/07/21 07/06/21 Rx Allergies Allergy/AdvReac Type Severity Reaction Status Date / Time No Known Allergies Allergy Verified 07/06/21 07:06 Surgical - Exam Vital Signs Temp Pulse Resp BP Pulse Ox 98.3 F 76 16 169/101 97 07/06/21 07:07 07/06/21 07:07 07/06/21 07:07 07/06/21 07:07 07/06/21 07:07 - General well developed, well nourished, no distress - Eyes PERRL - ENT no hearing loss - Neck trachea midline - Respiratory Nasal oxygen normal respiratory effort - Cardiovascular Rhythm: regular - Abdomen Abdomen: soft, non tender - Genitourinary Prostate is 30 g and benign indwelling catheter normal penis with no external lesions, testicles present - Integumentary no rash, no growths - Neurologic normal coordination, normal sensation - Musculoskeletal normal posture - Psychiatric oriented to time, oriented to person, oriented to place, memory intact Results - Labs 07/06/21 06:23 07/08/21 06:24 Abnormal Lab Results - Last 24 Hours (Table) 07/07/21 07/07/21 07/07/21 Range/Units 16:55 17:43 20:02 Sodium 134 L (137-145) mmol/L Potassium (3.5-5.1) mmol/L Chloride (98-107) mmol/L Carbon Dioxide (22-30) mmol/L Creatinine 1.55 H (0.66-1.25) mg/dL Glucose 166 H (74-99) mg/dL POC Glucose (mg/dL) 236 H 141 H (75-99) mg/dL 07/08/21 07/08/21 07/08/21 Range/Units 06:03 06:24 11:48 Sodium 134 L (137-145) mmol/L Potassium 3.1 L (3.5-5.1) mmol/L Chloride 97 L (98-107) mmol/L Carbon Dioxide 31 H (22-30) mmol/L Creatinine 1.57 H (0.66-1.25) mg/dL Glucose 144 H (74-99) mg/dL POC Glucose (mg/dL) 158 H 194 H (75-99) mg/dL Diabetes panel 07/07/21 07/08/21 Range/Units 17:43 06:24 Sodium 134 L 134 L (137-145) mmol/L Potassium 3.6 3.1 L (3.5-5.1) mmol/L Chloride 98 97 L (98-107) mmol/L Carbon Dioxide 30 31 H (22-30) mmol/L BUN 20 18 (9-20) mg/dL Creatinine 1.55 H 1.57 H (0.66-1.25) mg/dL Glucose 166 H 144 H (74-99) mg/dL Calcium 8.6 8.4 (8.4-10.2) mg/dL Calcium panel 07/07/21 07/08/21 Range/Units 17:43 06:24 Calcium 8.6 8.4 (8.4-10.2) mg/dL Pituitary panel 07/07/21 07/08/21 Range/Units 17:43 06:24 Sodium 134 L 134 L (137-145) mmol/L Potassium 3.6 3.1 L (3.5-5.1) mmol/L Chloride 98 97 L (98-107) mmol/L Carbon Dioxide 30 31 H (22-30) mmol/L BUN 20 18 (9-20) mg/dL Creatinine 1.55 H 1.57 H (0.66-1.25) mg/dL Glucose 166 H 144 H (74-99) mg/dL Calcium 8.6 8.4 (8.4-10.2) mg/dL Adrenal panel 07/07/21 07/08/21 Range/Units 17:43 06:24 Sodium 134 L 134 L (137-145) mmol/L Potassium 3.6 3.1 L (3.5-5.1) mmol/L Chloride 98 97 L (98-107) mmol/L Carbon Dioxide 30 31 H (22-30) mmol/L BUN 20 18 (9-20) mg/dL Creatinine 1.55 H 1.57 H (0.66-1.25) mg/dL Glucose 166 H 144 H (74-99) mg/dL Calcium 8.6 8.4 (8.4-10.2) mg/dL - Imaging US - kidney/bladder: report reviewed, image reviewed Assessment and Plan Assessment: Impression: Postoperative urinary retention probably due to myogenic decompensation of the bladder. Multiple medical illnesses Recommendations: The patient has been placed on Flomax. We'll try the catheter out the morning for voiding trial. If he is unable to void he should go home with the catheter be followed in the office.
--- NOTE | 2021-07-08 16:24 | P.PN ---
Subjective Patient is doing well today. He does not have any complaints. Objective - Vital Signs Vital signs: Vital Signs Temp 98.6 F 07/08/21 12:44 Pulse 92 07/08/21 15:58 Resp 20 07/08/21 12:44 BP 110/69 07/08/21 12:44 Pulse Ox 91 L 07/08/21 12:44 Intake & Output 07/07/21 07/08/21 07/08/21 18:59 06:59 18:59 Intake Total 1160 20 880 Output Total 650 800 Balance 510 20 80 Weight 103.5 kg Intake: IV 60 20 40 Invasive Line 1 30 20 20 Invasive Line 2 30 20 Oral 1100 840 Output: Urine 650 800 Uretheral (Tam) 450 800 Other: Voiding Method Indwelling Catheter Indwelling Catheter - Exam General: The patient is awake and alert, in no distress Eye: there is normal conjunctiva bilaterally. Neck: The neck is supple, there is no JVD. Cardiovascular: Normal S1-S2, no S3-S4, no murmurs. Respiratory: Lungs clear to auscultation bilaterally Gastrointestinal: Abdomen is soft, nontender Musculoskeletal: There is no pedal edema. Neurological:. Speech is normal. Skin: Skin is warm and dry - Labs CBC & Chem 7: 07/06/21 06:23 07/08/21 06:24 Labs: Abnormal Lab Results - Last 24 Hours (Table) 07/07/21 07/07/21 07/07/21 Range/Units 16:55 17:43 20:02 Sodium 134 L (137-145) mmol/L Potassium (3.5-5.1) mmol/L Chloride (98-107) mmol/L Carbon Dioxide (22-30) mmol/L Creatinine 1.55 H (0.66-1.25) mg/dL Glucose 166 H (74-99) mg/dL POC Glucose (mg/dL) 236 H 141 H (75-99) mg/dL 07/08/21 07/08/21 07/08/21 Range/Units 06:03 06:24 11:48 Sodium 134 L (137-145) mmol/L Potassium 3.1 L (3.5-5.1) mmol/L Chloride 97 L (98-107) mmol/L Carbon Dioxide 31 H (22-30) mmol/L Creatinine 1.57 H (0.66-1.25) mg/dL Glucose 144 H (74-99) mg/dL POC Glucose (mg/dL) 158 H 194 H (75-99) mg/dL Assessment and Plan Assessment: Patient is a 60 yo CM with a hx of COPD, AAA, and CKD who presented to elective AAA repair. Infrarenal AAA status post repair vascular surgery management COPD on home O2 4 L Patient currently satting well on his home O2 Pulmonary consult placed by primary team Nausea and heart burn - prn zofran - tums CKD stage III - nephrology recs - on IVF Hypokalemia and hypomagnesemia - replace and recheck Diabetes mellitus - patient with nausea - Start Levemir at 10 tonight - SSI, follow BS Urinary retention, postoperative -Urology consulted. - plan voiding trial in the morning. Chronic conditions Coronary disease status post CABG, hypertension and hyperlipidemia Resume home meds
[2021-07-08 16:31] LABS: Glucose,Whole Blood 142 mg/dL (75-99)
[2021-07-08] MEDS: IPRATROPIUM-ALBUTEROL 3 ML NEB INHALATION SCH (19:15)
[2021-07-08 20:00] LABS: Glucose,Whole Blood 196 mg/dL (75-99)
[2021-07-08] MEDS: ATORVASTATIN 80 MG TAB PO SCH (20:41)
[2021-07-08] MEDS: INSULIN DETEMIR (LEVEMIR) 100 UNIT/ML SYR SQ SCH (20:42)
[2021-07-09 06:06] LABS: Glucose,Whole Blood 148 mg/dL (75-99)
[2021-07-09] MEDS: INSULIN ASPART (NovoLOG) 100 UNIT/ML VIAL SQ SCH ×4 (06:28→21:11)
[2021-07-09] MEDS: PANTOPRAZOLE 40 MG TABLET PO SCH ×2 (06:28→17:10)
[2021-07-09] MEDS: IPRATROPIUM-ALBUTEROL 3 ML NEB INHALATION SCH ×4 (08:43→20:16)
--- NOTE | 2021-07-09 09:00 | P.PN ---
Subjective Patient is seen in follow-up for acute kidney injury on chronic kidney disease. Renal function stable as of yesterday. Nonoliguric. Has a Tam catheter for urinary retention. Denies chest pain or shortness of breath. Vital signs are stable. General: The patient appeared well nourished and normally developed. HEENT: Head exam is unremarkable. LUNGS: Breath sounds decreased. HEART: Rate and Rhythm are regular. ABDOMEN: Soft, no distention. EXTREMITITES: No edema. Objective - Vital Signs Vital signs: Vital Signs Temp 99.2 F 07/09/21 03:46 Pulse 88 07/09/21 03:46 Resp 18 07/09/21 03:46 BP 123/73 07/09/21 03:46 Pulse Ox 90 L 07/09/21 03:46 Intake & Output 07/08/21 07/09/21 07/09/21 18:59 06:59 18:59 Intake Total 1160 260 Output Total 800 1050 Balance 360 -790 Weight 100.7 kg Intake: IV 60 20 Invasive Line 1 30 10 Invasive Line 2 30 10 Oral 1100 240 Output: Urine 800 1050 Uretheral (Tam) 800 Other: Voiding Method Indwelling Catheter Indwelling Catheter - Labs CBC & Chem 7: 07/06/21 06:23 07/08/21 06:24 Labs: Abnormal Lab Results - Last 24 Hours (Table) 07/08/21 07/08/21 07/08/21 Range/Units 11:48 16:30 19:58 POC Glucose (mg/dL) 194 H 142 H 196 H (75-99) mg/dL 07/09/21 Range/Units 06:04 POC Glucose (mg/dL) 148 H (75-99) mg/dL Assessment and Plan Plan: Assessment: 1. 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 GFR near baseline. No hydronephrosis noted on kidney ultrasound. 2. Status post endovascular infrarenal aortic repair July 06. 3. Hypokalemia secondary to hypomagnesemia. Replaced. 4. Hypomagnesemia from poor intake. Replaced. Better. 5. Hypertension with chronic kidney disease. Controlled. 6. Diabetes mellitus. 7. Coronary disease status post CABG. 8. Tobacco abuse. 9. Urinary retention. Tam catheter removed this morning. On Flomax. Plan: Hold amlodipine for systolic blood pressure less than 120. Encourage oral intake. Continue to monitor renal function and urine output. Follow-up morning labs. Monitor postvoid residuals to make sure no urinary retention. Patient will need to follow up outpatient to establish CKD care.
[2021-07-09 09:13] LABS: Basophils % (A) 0 %; Eosinophils % (A) 0 %; HCT 34.3 % (39.0-53.0); Lymphocytes # (A) 0.7 k/uL (1.0-4.8); Lymphocytes % (A) 6 %; MCH 30.5 pg (25.0-35.0); MCV 95.1 fL (80.0-100.0); Mean Platelet Volume 9.6; Monocytes # (A) 0.5 k/uL (0-1.0); Monocytes % (A) 4 %; Neutrophils # (A) 9.7 k/uL (1.3-7.7); Neutrophils % (A) 88 %; Platelet Count 152 k/uL (150-450); RBC 3.61 m/uL (4.30-5.90); RDW 13.7 % (11.5-15.5)
[2021-07-09 09:22] LABS: Calcium 8.8 mg/dL (8.4-10.2); Magnesium 1.9 mg/dL (1.6-2.3); Potassium 3.3 mmol/L (3.5-5.1)
[2021-07-09] MEDS: LOSARTAN 25 MG TAB PO SCH (09:49)
[2021-07-09] MEDS: TAMSULOSIN 0.4 MG CAP.ER.24H PO SCH (09:49)
[2021-07-09] MEDS: amLODIPine 5 MG TAB PO SCH (09:49)
[2021-07-09] MEDS: ASPIRIN 81 MG PO SCH (09:49)
[2021-07-09] MEDS: CLOPIDOGREL 75 MG TAB PO SCH (09:50)
[2021-07-09] MEDS: ESCITALOPRAM 20 MG TAB PO SCH (09:50)
[2021-07-09] MEDS: allopurinoL 300 MG TAB PO SCH (09:50)
[2021-07-09] MEDS: ISOSORBIDE MONONITRATE ER 30 MG TAB.ER.24H PO SCH (09:50)
[2021-07-09] MEDS ORDERED: POTASSIUM CHLORIDE ER 20 MEQ TAB.ER PO STA (10:18)
[2021-07-09 11:34] LABS: Glucose,Whole Blood 205 mg/dL (75-99)
--- NOTE | 2021-07-09 12:14 | P.PN ---
Subjective Patient is doing well today. Tam catheter was discontinued this morning and patient just urinate prior to my evaluation. Objective - Vital Signs Vital signs: Vital Signs Temp 99.5 F 07/09/21 08:00 Pulse 84 07/09/21 11:44 Resp 16 07/09/21 08:00 BP 112/73 07/09/21 08:00 Pulse Ox 91 L 07/09/21 08:00 Intake & Output 07/08/21 07/09/21 07/09/21 18:59 06:59 18:59 Intake Total 1160 260 Output Total 800 1050 123 Balance 360 -790 -123 Weight 100.7 kg Intake: IV 60 20 Invasive Line 1 30 10 Invasive Line 2 30 10 Oral 1100 240 Output: Urine 800 1050 Uretheral (Tam) 800 Post Void Residual 123 Other: Voiding Method Indwelling Catheter Indwelling Catheter - Exam General: The patient is awake and alert, in no distress Eye: there is normal conjunctiva bilaterally. Neck: The neck is supple, there is no JVD. Cardiovascular: Normal S1-S2, no S3-S4, no murmurs. Respiratory: Lungs clear to auscultation bilaterally Gastrointestinal: Abdomen is soft, nontender Musculoskeletal: There is no pedal edema. Neurological:. Speech is normal. Skin: Skin is warm and dry - Labs CBC & Chem 7: 07/09/21 07:28 07/09/21 07:28 Labs: Abnormal Lab Results - Last 24 Hours (Table) 07/08/21 07/08/21 07/09/21 Range/Units 16:30 19:58 06:04 WBC (3.8-10.6) k/uL RBC (4.30-5.90) m/uL Hgb (13.0-17.5) gm/dL Hct (39.0-53.0) % Neutrophils # (1.3-7.7) k/uL Lymphocytes # (1.0-4.8) k/uL Sodium (137-145) mmol/L Potassium (3.5-5.1) mmol/L Carbon Dioxide (22-30) mmol/L BUN (9-20) mg/dL Creatinine (0.66-1.25) mg/dL Glucose (74-99) mg/dL POC Glucose (mg/dL) 142 H 196 H 148 H (75-99) mg/dL 07/09/21 07/09/21 07/09/21 Range/Units 07:28 07:28 11:32 WBC 11.0 H (3.8-10.6) k/uL RBC 3.61 L (4.30-5.90) m/uL Hgb 11.0 L (13.0-17.5) gm/dL Hct 34.3 L (39.0-53.0) % Neutrophils # 9.7 H (1.3-7.7) k/uL Lymphocytes # 0.7 L (1.0-4.8) k/uL Sodium 136 L (137-145) mmol/L Potassium 3.3 L (3.5-5.1) mmol/L Carbon Dioxide 32 H (22-30) mmol/L BUN 21 H (9-20) mg/dL Creatinine 1.69 H (0.66-1.25) mg/dL Glucose 124 H (74-99) mg/dL POC Glucose (mg/dL) 205 H (75-99) mg/dL Assessment and Plan Assessment: Patient is a 60 yo CM with a hx of COPD, AAA, and CKD who presented to elective AAA repair. Infrarenal AAA status post repair vascular surgery management COPD on home O2 4 L Patient currently satting well on his home O2 Pulmonary consult placed by primary team Nausea and heart burn - prn zofran - tums CKD stage III - nephrology recs Hypokalemia and hypomagnesemia - replaced Diabetes mellitus -Levemir at 10 units daily at bedtime - SSI, follow BS Urinary retention, postoperative -Urology consulted. -Awaiting that this Is 40 Was Removed This Morning Chronic conditions Coronary disease status post CABG, hypertension and hyperlipidemia Patient is medically clear for discharge. I did his discharge medication reconc iliation form. Discharge orders per primary team
--- NOTE | 2021-07-09 13:38 | P.PN ---
Subjective Progress Note Date: 07/09/21 Principal diagnosis: Abdominal aortic aneurysm with bilateral common iliac artery aneurysm This a 60-year-old male with a past medical history of COPD exacerbation that was found on his previous hospitalization to have a large abdominal aortic aneurysm and bilateral common iliac artery aneurysms. His CT angiogram demonstrated a 6.6 cm abdominal aortic aneurysm with bilateral common iliac artery aneurysms. He is status post endovascular repair of abdominal aortic aneurysm with bilateral common iliac artery aneurysm. He is seen and examined today. He states he's feeling better. He had his Tam catheter removed this morning. Urology is following closely. He continues on Flomax. He voided a small amount since the catheter was removed. The low-grade temperature 99.5. He denies any pain. No acute changes through the night. Objective - Vital Signs Vital signs: Vital Signs Temp 99.5 F 07/09/21 08:00 Pulse 84 07/09/21 12:00 Resp 18 07/09/21 12:00 BP 106/64 07/09/21 12:00 Pulse Ox 92 L 07/09/21 12:00 Intake & Output 07/08/21 07/09/21 07/09/21 18:59 06:59 18:59 Intake Total 1160 260 Output Total 800 1050 123 Balance 360 -790 -123 Weight 100.7 kg Intake: IV 60 20 Invasive Line 1 30 10 Invasive Line 2 30 10 Oral 1100 240 Output: Urine 800 1050 Uretheral (Tam) 800 Post Void Residual 123 Other: Voiding Method Indwelling Catheter Indwelling Catheter - Exam General appearance: The patient is alert, oriented, appears in no acute distress. HET: Head is normocephalic and atraumatic. . Neck: Supple without lymphadenopathy. Trachea midline. Heart: S1 S2. Regular rate and rhythm. Lungs: Normal expansion. Bilateral scattered wheezes. Abdomen: Soft, nontender, nondistended. Extremities: Normal skin color and turgor. Access sites to bilateral groins without any drainage or bleeding. Bilateral lower extremities warm to the touch with good capillary refill. Patient has palpable DP pulses bilaterally. Neurological: No focal deficits. Strength and sensation are grossly intact. - Labs CBC & Chem 7: 07/09/21 07:28 07/09/21 07:28 Labs: Abnormal Lab Results - Last 24 Hours (Table) 07/08/21 07/08/21 07/09/21 Range/Units 16:30 19:58 06:04 WBC (3.8-10.6) k/uL RBC (4.30-5.90) m/uL Hgb (13.0-17.5) gm/dL Hct (39.0-53.0) % Neutrophils # (1.3-7.7) k/uL Lymphocytes # (1.0-4.8) k/uL Sodium (137-145) mmol/L Potassium (3.5-5.1) mmol/L Carbon Dioxide (22-30) mmol/L BUN (9-20) mg/dL Creatinine (0.66-1.25) mg/dL Glucose (74-99) mg/dL POC Glucose (mg/dL) 142 H 196 H 148 H (75-99) mg/dL 07/09/21 07/09/21 07/09/21 Range/Units 07:28 07:28 11:32 WBC 11.0 H (3.8-10.6) k/uL RBC 3.61 L (4.30-5.90) m/uL Hgb 11.0 L (13.0-17.5) gm/dL Hct 34.3 L (39.0-53.0) % Neutrophils # 9.7 H (1.3-7.7) k/uL Lymphocytes # 0.7 L (1.0-4.8) k/uL Sodium 136 L (137-145) mmol/L Potassium 3.3 L (3.5-5.1) mmol/L Carbon Dioxide 32 H (22-30) mmol/L BUN 21 H (9-20) mg/dL Creatinine 1.69 H (0.66-1.25) mg/dL Glucose 124 H (74-99) mg/dL POC Glucose (mg/dL) 205 H (75-99) mg/dL Assessment and Plan Assessment: 1. Asymptomatic infrarenal 6.5 cm abdominal aortic with bilateral iliac artery aneurysms, Postop day #1 for cutaneous endovascular aortic repair, bilateral iliac arteries selective angiograms with Apthus tanscatheter enhanced fixation 2. Hypokalemia 3. Hypo-magnesium 4. Chronic COPD on home O2 5. Chronic kidney disease 6. Urinary retention 7. Tobacco abuse Plan: 1. Medicine team on consult for medical management 2. Nephrology on consult for chronic kidney disease, and following closely 3. Repeat CBC, CMP 4. Encourage Incentive spirometer 5. Encourage ambulation 6. Continue with recommendations from urology 7. Tobacco cessation 8. We'll plan on discharge home tomorrow if urinary retention resolved The impression and plan of care has been dictated as directed. Dr. Tam I performed a history and examination of this patient, discussed the same with the dictator. I agree with the dictator's note ,documented as a scribe. Any additional findings or plans will be noted.
[2021-07-09 16:27] LABS: Glucose,Whole Blood 201 mg/dL (75-99)
[2021-07-09 21:11] LABS: Glucose,Whole Blood 164 mg/dL (75-99)
[2021-07-09] MEDS: ATORVASTATIN 80 MG TAB PO SCH (21:11)
[2021-07-09] MEDS: INSULIN DETEMIR (LEVEMIR) 100 UNIT/ML SYR SQ SCH (21:12)
[2021-07-10 06:15] LABS: Glucose,Whole Blood 151 mg/dL (75-99)
[2021-07-10] MEDS: INSULIN ASPART (NovoLOG) 100 UNIT/ML VIAL SQ SCH ×2 (06:38→12:24)
[2021-07-10] MEDS: PANTOPRAZOLE 40 MG TABLET PO SCH (06:39)
--- NOTE | 2021-07-10 07:44 | P.PN ---
Subjective Progress Note Date: 07/10/21 The patient was seen for urine retention. The catheters been removed and he seems to be voiding without difficulty. I would leave him on the Flomax for approximately 1 month and then it can be removed. I don't need to see him in the office and was he has problems. Objective - Vital Signs Vital signs: Vital Signs Temp 98.9 F 07/10/21 03:19 Pulse 99 07/10/21 03:19 Resp 20 07/10/21 03:19 BP 112/68 07/10/21 03:19 Pulse Ox 92 L 07/10/21 03:19 Intake & Output 07/09/21 07/10/21 07/10/21 18:59 06:59 18:59 Intake Total 180 Output Total 751 835 Balance -571 -835 Weight 105.6 kg Intake: Oral 180 Output: Urine 450 600 Post Void Residual 301 235 Other: Voiding Method Toilet Urinal - Labs CBC & Chem 7: 07/09/21 07:28 07/09/21 07:28 Labs: Abnormal Lab Results - Last 24 Hours (Table) 07/09/21 07/09/21 07/09/21 Range/Units 07:28 07:28 11:32 WBC 11.0 H (3.8-10.6) k/uL RBC 3.61 L (4.30-5.90) m/uL Hgb 11.0 L (13.0-17.5) gm/dL Hct 34.3 L (39.0-53.0) % Neutrophils # 9.7 H (1.3-7.7) k/uL Lymphocytes # 0.7 L (1.0-4.8) k/uL Sodium 136 L (137-145) mmol/L Potassium 3.3 L (3.5-5.1) mmol/L Carbon Dioxide 32 H (22-30) mmol/L BUN 21 H (9-20) mg/dL Creatinine 1.69 H (0.66-1.25) mg/dL Glucose 124 H (74-99) mg/dL POC Glucose (mg/dL) 205 H (75-99) mg/dL 07/09/21 07/09/21 07/10/21 Range/Units 16:26 20:44 06:03 WBC (3.8-10.6) k/uL RBC (4.30-5.90) m/uL Hgb (13.0-17.5) gm/dL Hct (39.0-53.0) % Neutrophils # (1.3-7.7) k/uL Lymphocytes # (1.0-4.8) k/uL Sodium (137-145) mmol/L Potassium (3.5-5.1) mmol/L Carbon Dioxide (22-30) mmol/L BUN (9-20) mg/dL Creatinine (0.66-1.25) mg/dL Glucose (74-99) mg/dL POC Glucose (mg/dL) 201 H 164 H 151 H (75-99) mg/dL
[2021-07-10] MEDS: IPRATROPIUM-ALBUTEROL 3 ML NEB INHALATION SCH ×2 (08:16→11:10)
[2021-07-10] MEDS: amLODIPine 5 MG TAB PO SCH (08:37)
[2021-07-10] MEDS: ASPIRIN 81 MG PO SCH (08:37)
[2021-07-10] MEDS: allopurinoL 300 MG TAB PO SCH (08:37)
[2021-07-10] MEDS: LOSARTAN 25 MG TAB PO SCH (08:37)
[2021-07-10] MEDS: CLOPIDOGREL 75 MG TAB PO SCH (08:37)
[2021-07-10] MEDS: ESCITALOPRAM 20 MG TAB PO SCH (08:37)
[2021-07-10] MEDS: ISOSORBIDE MONONITRATE ER 30 MG TAB.ER.24H PO SCH (08:37)
[2021-07-10] MEDS: TAMSULOSIN 0.4 MG CAP.ER.24H PO SCH (08:37)
--- NOTE | 2021-07-10 09:09 | P.PN ---
Subjective Patient is seen in follow-up for acute kidney injury on chronic kidney disease. Renal function stable as of yesterday. Nonoliguric. Tam catheter removed. Denies chest pain or shortness of breath. Oral intake is good. Vital signs are stable. General: The patient appeared well nourished and normally developed. HEENT: Head exam is unremarkable. LUNGS: Breath sounds decreased. HEART: Rate and Rhythm are regular. ABDOMEN: Soft, no distention. EXTREMITITES: No edema. Objective - Vital Signs Vital signs: Vital Signs Temp 98.9 F 07/10/21 03:19 Pulse 86 07/10/21 08:17 Resp 20 07/10/21 03:19 BP 112/68 07/10/21 03:19 Pulse Ox 92 L 07/10/21 03:19 Intake & Output 07/09/21 07/10/21 07/10/21 18:59 06:59 18:59 Intake Total 180 180 Output Total 751 835 Balance -571 -835 180 Weight 105.6 kg Intake: Oral 180 180 Output: Urine 450 600 Post Void Residual 301 235 Other: Voiding Method Toilet Urinal - Labs CBC & Chem 7: 07/09/21 07:28 07/09/21 07:28 Labs: Abnormal Lab Results - Last 24 Hours (Table) 07/09/21 07/09/21 07/09/21 Range/Units 07:28 07:28 11:32 WBC 11.0 H (3.8-10.6) k/uL RBC 3.61 L (4.30-5.90) m/uL Hgb 11.0 L (13.0-17.5) gm/dL Hct 34.3 L (39.0-53.0) % Neutrophils # 9.7 H (1.3-7.7) k/uL Lymphocytes # 0.7 L (1.0-4.8) k/uL Sodium 136 L (137-145) mmol/L Potassium 3.3 L (3.5-5.1) mmol/L Carbon Dioxide 32 H (22-30) mmol/L BUN 21 H (9-20) mg/dL Creatinine 1.69 H (0.66-1.25) mg/dL Glucose 124 H (74-99) mg/dL POC Glucose (mg/dL) 205 H (75-99) mg/dL 11/11/21 11/11/21 11/12/21 Range/Units 16:26 20:44 06:03 WBC (3.8-10.6) k/uL RBC (4.30-5.90) m/uL Hgb (13.0-17.5) gm/dL Hct (39.0-53.0) % Neutrophils # (1.3-7.7) k/uL Lymphocytes # (1.0-4.8) k/uL Sodium (137-145) mmol/L Potassium (3.5-5.1) mmol/L Carbon Dioxide (22-30) mmol/L BUN (9-20) mg/dL Creatinine (0.66-1.25) mg/dL Glucose (74-99) mg/dL POC Glucose (mg/dL) 201 H 164 H 151 H (75-99) mg/dL Assessment and Plan Plan: Assessment: 1. 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 GFR near baseline. No hydronephrosis noted on kidney ultrasound. 2. Status post endovascular infrarenal aortic repair July 06. 3. Hypokalemia secondary to hypomagnesemia. Replaced. 4. Hypomagnesemia from poor intake. Replaced. Better. 5. Hypertension with chronic kidney disease. Controlled. 6. Diabetes mellitus. 7. Coronary disease status post CABG. 8. Tobacco abuse. 9. Urinary retention. Tam catheter removed. On Flomax. Plan: Hold amlodipine for systolic blood pressure less than 120. Encourage oral intake. Continue to monitor renal function and urine output. Follow-up morning labs. Patient will need to follow up outpatient to establish CKD care.
[2021-07-10 09:37] VITALS: RESP 18
[2021-07-10 09:38] LABS: Calcium 8.6 mg/dL (8.4-10.2); Magnesium 1.6 mg/dL (1.6-2.3); Potassium 3.5 mmol/L (3.5-5.1)
[2021-07-10 11:12] VITALS: PULSE 86
[2021-07-10 11:50] LABS: Glucose,Whole Blood 238 mg/dL (75-99)
--- NOTE | 2021-07-10 12:33 | P.DS ---
Providers Date of admission: 07/06/21 06:08 Attending physician: Keon Thompson DO Consults: 07/06/21 05:56 Consult to Anesthesia Routine Consulting Provider: Anesthesia,Services Consult Reason/Comments: General anesthesia for Aortic Stent procedure 07/06/21 11:14 Consult Physician Routine Consulting Provider: Nevaeh Nesbitt Consult Reason/Comments: medical management Do you want consulting provider notified?: Yes Consult Physician Routine Consulting Provider: Tahira Costa Consult Reason/Comments: COPD Do you want consulting provider notified?: Yes 07/06/21 11:17 Consult Physician Routine Consulting Provider: Ara Gonzalez Consult Reason/Comments: chronic renal disease Do you want consulting provider notified?: Yes 07/08/21 13:46 Consult Physician Routine Consulting Provider: Raleigh Ma Consult Reason/Comments: urinary retention Do you want consulting provider notified?: Yes Primary care physician: Tk Plaza MD Hospital Course: This is a 60-year-old male who came in for asymptomatic infrarenal 6.5 cm abdominal aortic aneurysm with bilateral iliac artery aneurysms for elective percutaneous endovascular aortic repair. The patient is postop day #4. He has a history of COPD and wears 4 L of nasal cannula home oxygen. He will be discharged on the same. During his admission he was noted to have some chronic kidney disease for which nephrology has been following. The patient also had some urinary retention after discontinuing Tam catheter. He had diabetes straight cathed, so urology had been consulted. He was started on Flomax and a another indwelling Tam catheter was placed. The Tam catheter was taken out yesterday and the patient has been voiding since. Plan is for discharge home today. He's been afebrile. Patient had bowel movement since surgery again is voiding well. Physical exam: General appearance: The patient is alert, oriented, in no acute distress. HET: Head is normocephalic and atraumatic. Neck: Supple without lymphadenopathy. Trachea midline. Heart: S1 S2. Regular rate and rhythm. Lungs: Bilateral wheezes. Abdomen: Soft, nontender, nondistended. Extremities: Normal skin color and turgor. Access site and bilateral groin well approximated without any drainage or redness. No bleeding. Bilateral lower extremities warm to the touch with good capillary refill. Neurological: No focal deficits. Strength and sensation are grossly intact. The impression and plan of care has been dictated as directed. Dr. Tam I performed a history and examination of this patient, discussed the same with the dictator. I agree with the dictator's note ,documented as a scribe. Any additional findings or plans will be noted. Procedures: Percutaneous endovascular aortic repair with Anita IPE Ultrasound-guided bilateral common femoral artery access bilateral iliac arteries selective angiograms Apthus transcatheter enhance fixation 7 Patient Condition at Discharge: Stable Plan - Discharge Summary Discharge Rx Participant: No New Discharge Prescriptions: New Losartan [Cozaar] 25 mg PO DAILY #30 tab Tamsulosin [Flomax] 0.4 mg PO PC-BRKFST #30 capsule Continue Pioglitazone [Actos] 30 mg PO DAILY Omeprazole 20 mg PO DAILY Aspirin EC [Ecotrin Low Dose] 81 mg PO DAILY Insulin Detemir (Levemir) [Levemir] 10 units SQ DAILY HYDROcodone/APAP 7.5-325MG [Union 7.5-325] 1 tab PO QID PRN PRN Reason: Pain Allopurinol [Zyloprim] 300 mg PO DAILY Nitroglycerin Sl Tabs [Nitrostat] 0.4 mg SL Q5M PRN PRN Reason: Chest Pain Isosorbide Mononitrate ER [Imdur] 30 mg PO DAILY Escitalopram [Lexapro] 20 mg PO DAILY Clopidogrel [Plavix] 75 mg PO DAILY carvediloL [Coreg*] 12.5 mg PO BID-W/MEALS #60 tab Atorvastatin [Lipitor] 80 mg PO HS #30 tab Tiotropium 18 Mcg/Puff [Spiriva] 1 puff INHALATION DAILY #30 each Albuterol Inhaler [Ventolin Hfa Inhaler] 1 puff INHALATION RT-TID #8 gm Discontinued Insulin Detemir (Levemir) [Levemir] 42 units SQ HS amLODIPine [Norvasc] 5 mg PO BID #60 tab Discharge Medication List Allopurinol [Zyloprim] 300 mg PO DAILY 06/01/21 [History] Aspirin EC [Ecotrin Low Dose] 81 mg PO DAILY 06/01/21 [History] Clopidogrel [Plavix] 75 mg PO DAILY 06/01/21 [History] Escitalopram [Lexapro] 20 mg PO DAILY 06/01/21 [History] HYDROcodone/APAP 7.5-325MG [Union 7.5-325] 1 tab PO QID PRN 06/01/21 [History] Insulin Detemir (Levemir) [Levemir] 10 units SQ DAILY 06/01/21 [History] Isosorbide Mononitrate ER [Imdur] 30 mg PO DAILY 06/01/21 [History] Nitroglycerin Sl Tabs [Nitrostat] 0.4 mg SL Q5M PRN 06/01/21 [History] Omeprazole 20 mg PO DAILY 06/01/21 [History] Pioglitazone [Actos] 30 mg PO DAILY 06/01/21 [History] Albuterol Inhaler [Ventolin Hfa Inhaler] 1 puff INHALATION RT-TID #8 gm 06/07/21 [Rx] Atorvastatin [Lipitor] 80 mg PO HS #30 tab 06/07/21 [Rx] Tiotropium 18 Mcg/Puff [Spiriva] 1 puff INHALATION DAILY #30 each 06/07/21 [Rx] carvediloL [Coreg*] 12.5 mg PO BID-W/MEALS #60 tab 06/07/21 [Rx] Losartan [Cozaar] 25 mg PO DAILY #30 tab 07/09/21 [Rx] Tamsulosin [Flomax] 0.4 mg PO PC-BRKFST #30 capsule 07/09/21 [Rx] Follow up Appointment(s)/Referral(s): [facility], [NON-STAFF] - Patient Instructions/Handouts: Endovascular Aneurysm Repair of Abdominal Aorta (DC) Activity/Diet/Wound Care/Special Instructions: Patient requires a nebulizer at discharge to manage COPD No heavy lifting or strenuous activity greater than 5-10 pounds. Patient may shower but no tub bathing until further notice by vascular surgeon. Patient to continue Flomax as prescribed by primary medicine team. Continue aspirin and Plavix and all other home meds. Discharge Disposition: HOME WITH HOME HEALTH SERVICES
--- NOTE | 2021-07-10 13:01 | P.PN ---
Subjective Patient is doing well today. For unclear reasons to me he was not discharged yesterday. He is voiding well without difficulty. No events overnight reported to me by nursing staff. Objective - Vital Signs Vital signs: Vital Signs Temp 98.1 F 07/10/21 08:00 Pulse 86 07/10/21 11:19 Resp 18 07/10/21 08:00 BP 104/70 07/10/21 08:00 Pulse Ox 94 L 07/10/21 08:00 Intake & Output 07/09/21 07/10/21 07/10/21 18:59 06:59 18:59 Intake Total 180 180 Output Total 751 835 Balance -571 -835 180 Weight 105.6 kg Intake: Oral 180 180 Output: Urine 450 600 Post Void Residual 301 235 Other: Voiding Method Toilet Toilet Urinal Urinal - Exam General: The patient is awake and alert, in no distress Eye: there is normal conjunctiva bilaterally. Neck: The neck is supple, there is no JVD. Cardiovascular: Normal S1-S2, no S3-S4, no murmurs. Respiratory: Lungs clear to auscultation bilaterally Gastrointestinal: Abdomen is soft, nontender Musculoskeletal: There is no pedal edema. Neurological:. Speech is normal. Skin: Skin is warm and dry - Labs CBC & Chem 7: 07/09/21 07:28 07/10/21 08:35 Labs: Abnormal Lab Results - Last 24 Hours (Table) 07/09/21 07/09/21 07/10/21 Range/Units 16:26 20:44 06:03 Sodium (137-145) mmol/L BUN (9-20) mg/dL Creatinine (0.66-1.25) mg/dL Glucose (74-99) mg/dL POC Glucose (mg/dL) 201 H 164 H 151 H (75-99) mg/dL 07/10/21 07/10/21 Range/Units 08:35 11:49 Sodium 135 L (137-145) mmol/L BUN 21 H (9-20) mg/dL Creatinine 1.77 H (0.66-1.25) mg/dL Glucose 153 H (74-99) mg/dL POC Glucose (mg/dL) 238 H (75-99) mg/dL Assessment and Plan Assessment: Patient is a 60 yo CM with a hx of COPD, AAA, and CKD who presented to elective AAA repair. Infrarenal AAA status post repair vascular surgery management COPD on home O2 4 L Patient currently satting well on his home O2 Pulmonary consult placed by primary team Nausea and heart burn - prn zofran - tums CKD stage III - nephrology recs Hypokalemia and hypomagnesemia - replaced Diabetes mellitus -Levemir at 10 units daily at bedtime - SSI, follow BS Urinary retention, postoperative -Urology consulted. -Awaiting that this Is 40 Was Removed This Morning Chronic conditions Coronary disease status post CABG, hypertension and hyperlipidemia Patient is medically clear for discharge. I did his discharge medication reconciliation form. Discharge orders per primary team
[2021-07-10 13:02] VITALS: BP 102/69; TEMP 98.3
== END 2021-07-10 14:05 | disposition home health service (06) | DRG 269 ==
LOC: 2ORMAIN 06:08 → 3SCARD 15:37
PROVIDERS: ADMIT Surgery; ATTEND Surgery
PROC: 04V03FZ Restriction of Abdominal Aorta with Branched or Fenestrated Intraluminal Device, Three or More Arteries, Percutaneous Approach (ICD-10-PCS; principal; 2021-07-06 07:30)
PROC: B4201ZZ Computerized Tomography (CT Scan) of Abdominal Aorta using Low Osmolar Contrast (ICD-10-PCS; principal; 2021-07-06 07:30)
DX: I71.4 Abdominal aortic aneurysm, without rupture (principal); T82.310A Breakdown (mechanical) of aortic (bifurcation) graft (replacement), initial encounter; N17.9 Acute kidney failure, unspecified; J96.11 Chronic respiratory failure with hypoxia; I72.3 Aneurysm of iliac artery; F17.210 Nicotine dependence, cigarettes, uncomplicated; I12.9 Hypertensive chronic kidney disease with stage 1 through stage 4 chronic kidney disease, or unspecified chronic kidney disease; I25.10 Atherosclerotic heart disease of native coronary artery without angina pectoris; Z20.822 Contact with and (suspected) exposure to COVID-19; I25.2 Old myocardial infarction; N18.32 Chronic kidney disease, stage 3b; E11.22 Type 2 diabetes mellitus with diabetic chronic kidney disease; E11.51 Type 2 diabetes mellitus with diabetic peripheral angiopathy without gangrene; E78.5 Hyperlipidemia, unspecified; E83.42 Hypomagnesemia; E87.6 Hypokalemia; Z99.81 Dependence on supplemental oxygen; Z95.1 Presence of aortocoronary bypass graft; Z86.79 Personal history of other diseases of the circulatory system; Z82.49 Family history of ischemic heart disease and other diseases of the circulatory system; Z79.899 Other long term (current) drug therapy; Z79.84 Long term (current) use of oral hypoglycemic drugs; Z79.82 Long term (current) use of aspirin; Z79.4 Long term (current) use of insulin; Z79.02 Long term (current) use of antithrombotics/antiplatelets; J44.9 Chronic obstructive pulmonary disease, unspecified; J98.4 Other disorders of lung
CPT/HCPCS: 34705; 71045; 76770; 80048; 81001; 83735; 85025; 86850; 86900; 86901; 87635; 94640; 94760